=== PATIENT | female | born 1960 | race Caucasian/White ===

== ENCOUNTER 2019-07-31 12:42 | Inpatient (IN) | payer OTHER ==
[~2019-07-31] VITALS: Ht 172.7 cm; Wt 59.1 kg
[~2019-07-31 12:42] MED LIST: ASPI81TA85 PO; BACL10TA2 PO; BACT400T PO; CALC1TAB42 PO; DRAM50TA7 PO; FLON1SPR; KEFL500C17 PO; LYSI1000 PO; OXYB10TA2 PO; TIZA4CAP PO; TYLE325T5 PO
[2019-07-31] MEDS ORDERED: NS 1,000 ML IV SCH ×2 (13:08→18:30)
[2019-07-31] MEDS ORDERED: VANCOMYCIN HCL 1,000 MG, VIAL MATE ADAPTER 1 EACH in D5W 250 ML IV ONE (13:15)
[2019-07-31] MEDS ORDERED: ALEN70TA74 PO (13:42)
[2019-07-31] MEDS ORDERED: VITMTA PO (13:42)
[2019-07-31] MEDS ORDERED: ELIQ2.5T PO (13:42)
[2019-07-31] MEDS ORDERED: BACL1TAB9 PO (13:42)
[2019-07-31] MEDS ORDERED: METO1TAB32 PO (13:42)
[2019-07-31] MEDS ORDERED: OXYB5TAB10 PO (13:42)
[2019-07-31] MEDS ORDERED: TIZA4TAB4 PO (13:43)
[2019-07-31 14:04] LABS: BASO % 0.1 % (0.0-1.0); HEMATOCRIT 33.6 % (36.0-47.0); HEMOGLOBIN 11.3 g/dl (12.0-15.5); LYMPH # 0.3 10^3/uL (1.5-5.0); LYMPH % 2.1 % (24.0-44.0); MEAN CORPUSCULAR HGB CONC 33.6 g/dl (32.0-36.5); MEAN CORPUSCULAR VOLUME 92.1 fl (80.0-96.0); MONO # 0.9 10^3/uL (0.0-0.8); MONO % 5.4 % (0.0-5.0); NEUTROPHILS % 91.7 % (36.0-66.0); PLATELET COUNT, AUTOMATED 355 10^3/uL (150-450); RED BLOOD COUNT 3.65 10^6/uL (4.00-5.40); WHITE BLOOD COUNT 16.4 10^3/uL (4.0-10.0)
[2019-07-31 14:15] LABS: INR 1.35; PROTHROMBIN TIME 16.4 SECONDS (11.8-14.0)
[2019-07-31] MEDS ORDERED: diphenhydrAMINE INJ 50MG/ML VIAL (J1200) IV STA (14:19)
[2019-07-31] MEDS ORDERED: methylPREDNISolone INJ 125 MG/2 ML VIAL (J2930) IV ONE (14:30)
[2019-07-31 14:32] LABS: ALBUMIN 2.3 GM/DL (3.2-5.2); BILIRUBIN,DIRECT 0.2 MG/DL (0.0-0.2); BILIRUBIN,TOTAL 0.5 MG/DL (0.2-1.0); TOTAL PROTEIN 6.1 GM/DL (6.4-8.2)
[2019-07-31] MEDS ORDERED: ISOVUE-370 76% 100ML VIAL (Q9967) As Ordered ONE (15:36)
[2019-07-31] MEDS ORDERED: POTASSIUM CHLORIDE 10 MEQ SR TABLET PO ONE (18:15)
[2019-07-31 18:20] VITALS: BP 119/76
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
[2019-07-31] MEDS: BACLOFEN 10 MG TAB PO SCH ×2 (18:46→20:16)
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
[2019-07-31 20:00] VITALS: BP 114/72
[2019-07-31] MEDS: MULTIVITAMINS/MINERALS THERAP 1 TAB PO SCH (20:16)
[2019-07-31] MEDS: tiZANidine 4 MG TAB PO SCH (20:16)
[2019-07-31] MEDS: APIXABAN 2.5 MG TAB (ELIQUIS) PO SCH (20:16)
[2019-07-31] MEDS: oxyBUTYnin 5 MG TAB PO SCH (20:16)
[2019-07-31] MEDS: CALCIUM/VITAMIN D 500 MG TAB PO SCH (20:16)
[2019-07-31] MEDS: PIPERACILLIN/TAZOBACTAM SOD 3.375 GM in D5W MINI-BAG PLUS 50 ML IV SCH (20:17)
--- NOTE | 2019-07-31 20:59 | ECGEPIP ---
[facility] - ED Test Date: 2019-07-31 Pat Name: DORITA GARDNER Department: Room: - Gender: Female Tape Sewer: AIDAN : 1960 Requested By: Glo Willams Order Number: [id number] Reading MD: Glo Willams Measurements Intervals [place]ola Rate: 98 P: 45 AL: 100 QRS: 41 QRSD: 119 T: -71 QT: 369 QTc: 472 Interpretive Statements SINUS RHYTHM WITH SHORT AL INTERVAL MODERATE INTRAVENTRICULAR CONDUCTION DELAY MODERATE T-WAVE ABNORMALITY, CONSIDER ISCHEMIA NO PRIOR Electronically Signed on 07-31-2019 20:59:00 EDT by Glo Willams
[2019-07-31] MEDS ORDERED: CALCIUM CARBONATE 500 MG CHEW U/D PO ONE (21:00)
[2019-07-31] MEDS ORDERED: ENOXAPARIN 40 MG/0.4 ML SYRINGE (J1650) SC SCH (21:00)
[2019-08-01] VITALS (9 sets, daily range): BP systolic 98–132; BP diastolic 52–74
[2019-08-01] MEDS: PIPERACILLIN/TAZOBACTAM SOD 3.375 GM in D5W MINI-BAG PLUS 50 ML IV SCH ×4 (02:04→20:35)
[2019-08-01] MEDS: ALENDRONATE 35MG TABLET PO SCH (06:01)
[2019-08-01 06:09] LABS: BASO % 0.1 % (0.0-1.0); HEMOGLOBIN 10.5 g/dl (12.0-15.5); LYMPH # 0.5 10^3/uL (1.5-5.0); LYMPH % 3.2 % (24.0-44.0); MEAN CORPUSCULAR HEMOGLOBIN 30.6 pg (27.0-33.0); MEAN CORPUSCULAR HGB CONC 32.8 g/dl (32.0-36.5); MEAN CORPUSCULAR VOLUME 93.3 fl (80.0-96.0); MONO # 0.6 10^3/uL (0.0-0.8); MONO % 3.6 % (0.0-5.0); NEUTROPHILS % 92.4 % (36.0-66.0); PLATELET COUNT, AUTOMATED 407 10^3/uL (150-450); RED BLOOD COUNT 3.43 10^6/uL (4.00-5.40); WHITE BLOOD COUNT 16.2 10^3/uL (4.0-10.0)
[2019-08-01 06:46] LABS: BLOOD UREA NITROGEN 21 MG/DL (7-18); CALCIUM LEVEL 8.6 MG/DL (8.5-10.1); CARBON DIOXIDE LEVEL 30 MEQ/L (21-32); CHLORIDE LEVEL 110 MEQ/L (98-107); CREATININE FOR GFR 0.59 MG/DL (0.55-1.30); GLOMERULAR FILTRATION RATE > 60.0 (>51); GLUCOSE, FASTING 133 MG/DL (70-100); POTASSIUM SERUM 4.2 MEQ/L (3.5-5.1); SODIUM LEVEL 144 MEQ/L (136-145)
[2019-08-01 06:58] LABS: ERYTHROCYTE SEDIMENTATION RATE 66 mm/hr (0-30)
--- NOTE | 2019-08-01 07:53 | REP ---
CT ABDOMEN AND PELVIS WITH IV CONTRAST: TECHNIQUE: Axial contrast enhanced images from the lung bases to the pubic symphysis using 100 mL Isovue 370 intravenous contrast material with multiplanar reformations. Visualized lung bases demonstrate no infiltrate. The liver appears unremarkable as does the spleen, adrenals, and pancreas. There is mild right hydronephrosis. There is evidence of cystectomy. There is a left ureterostomy which exits the right lower quadrant via an ileoconduit. 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 There is no bowel obstruction. There is no free air or free fluid. No bowel wall thickening is seen. There is no evidence of abdominal aortic aneurysm with mild atherosclerotic calcification. There is no adenopathy. In the pelvis note is made of a large decubitus ulcer overlying the right ischial tuberosity. There is extensive air in the adjacent soft tissues with cellulitis and phlegmonous change. No discrete abscess is seen. Soft tissue calcifications are seen surrounding the right hip and proximal right femur. These are seen to a lesser extent on the left. There is no left hydronephrosis. There is focal atrophy of the upper pole of the left kidney. IMPRESSION: Large right sacral decubitus ulcer overlying the right ischial tuberosity. There is extensive inflammation and air in the soft tissues with phlegmonous change. However, I do not see a discrete abscess in that region. In the abdomen and pelvis there is evidence of cystectomy with left ureterostomy and ileoconduit which exits the right lower quadrant via an ostomy. There is a parastomal hernia. There is no bowel obstruction. There is no free air or free fluid in the abdomen or pelvis. There is mild right hydronephrosis. There is no left hydronephrosis. Electronically Signed by Earle Judd MD 08/02/2019 04:03 P
[2019-08-01] MEDS: BACLOFEN 10 MG TAB PO SCH ×3 (09:00→18:17)
[2019-08-01] MEDS: oxyBUTYnin 5 MG TAB PO SCH ×2 (09:00→20:34)
[2019-08-01] MEDS ORDERED: VITAMIN D 1,000 INTERNATIONAL UNITS TABLET PO SCH (09:00)
[2019-08-01] MEDS ORDERED: ENTER DRUG NAME HERE (PATIENT'S OWN MED) PO SCH (09:00)
[2019-08-01] MEDS: CALCIUM/VITAMIN D 500 MG TAB PO SCH ×3 (09:00→20:34)
[2019-08-01] MEDS: APIXABAN 2.5 MG TAB (ELIQUIS) PO SCH ×3 (09:00→20:34)
[2019-08-01] MEDS: tiZANidine 4 MG TAB PO SCH ×3 (09:01→23:08)
[2019-08-01] MEDS: METOPROLOL SUCC *XL* 25MG TAB (TopROL *XL*) PO SCH (09:03)
[2019-08-01] MEDS ORDERED: BACITRACIN PWD 50,000 UNITS VIAL As Ordered ONE (10:48)
[2019-08-01] MEDS ORDERED: GENTAMICIN SULF INJ 80MG/2ML VIAL (J1580) As Ordered ONE (10:48)
[2019-08-01] MEDS ORDERED: ONDANSETRON 4MG/2ML VIAL (J2405) As Ordered ONE (11:12)
[2019-08-01] MEDS ORDERED: LIDOCAINE 2% INJ 100 MG/5 ML SDV (FOR ANES.) As Ordered ONE (11:12)
[2019-08-01] MEDS ORDERED: dexameTHASONE 4 MG/ML 1ML VIAL (J1100) As Ordered ONE (11:12)
[2019-08-01] MEDS ORDERED: fentaNYL 100 MCG/2 ML INJECTION (J3010) As Ordered ONE (11:13)
[2019-08-01] MEDS ORDERED: PROPOFOL 200 MG/20 ML VIAL As Ordered ONE (11:15)
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
[2019-08-01] MEDS ORDERED: NS 1,000 ML IV SCH (12:15)
[2019-08-01] MEDS ORDERED: ZOSYN 3.375 GM VIAL (J2543) As Ordered ONE (13:24)
[2019-08-01] MEDS ORDERED: ePHEDrine SULFATE 25 MG/5 ML(5MG/ML) SYRINGE As Ordered ONE (14:00)
[2019-08-01] MEDS ORDERED: PHENYLephrine HCL 500 MCG/5 ML (100MCG/ML) SYRINGE (J2370) As Ordered ONE (14:03)
--- NOTE | 2019-08-01 15:33 | POST-OPPD ---
Postoperative Procedure Note Date Of Procedure: Aug 01, 2019 PREOPERATIVE DIAGNOSIS: Right ischial wound stage 4 POSTOPERATIVE DIAGNOSIS: same FINDINGS: Right ischial wound [id number] 6cm undermining at 12 o'clock PROCEDURE: Irrigation, debridement of stage 4 ischial wound, bone biopsy. SURGEON: Dr Meier ANESTHESIA: general SPECIMENS: Right ischial debridment tissue. Right ischial bone biopsy. Cultures aerobic and anaerobic. ESTIMATED BLOOD LOSS: 10cc REPLACED: none DRAINS: none COMPLICATIONS: none POSTOPERATIVE CONDITION: stable PEGGY MEIER DO Aug 01, 2019 15:33
--- NOTE | 2019-08-01 18:52 | RO ---
DATE OF PROCEDURE: 08/01/2019 PREOPERATIVE DIAGNOSIS: Right ischial wound stage IV. POSTOPERATIVE DIAGNOSIS: Right ischial wound stage IV. PROCEDURE: Debridement of stage IV ischial wound and a bone biopsy. SURGEON: Dr. Garrison. ANESTHESIA: General. SPECIMEN SENT: Right ischial debridement tissue and right ischial bone biopsy for cultures anaerobic and aerobic of the tissue were taken. BLOOD LOSS: 20 mL. FLUID REPLACEMENT: None. DRAINS: None. COMPLICATIONS: None. PROCEDURE: This 58-year-old female who came in from the emergency room yesterday and was also seen in the emergency room by us for infection of her right ischial wound. The patient is scheduled for washout today with irrigation and debridement and possible bone biopsy. The risks, benefits and alternatives were discussed with the patient at length and her questions were answered and she is ready to proceed. Informed consent was confirmed and she was brought to the operating room and placed in a supine position. Preoperative antibiotics were given which was Zosyn and Vancomycin that was already ordered for her from last night. Sequential stockings were placed on the lower calf. General anesthesia was induced. She was positioned in the left lateral position right side up and she was prepped and draped in the usual sterile fashion. The description of the wound as a stage IV right ischial wound. It is 3 x 4 cm in measurements and 5 cm deep, 6 cm undermining at 12 o'clock. We started our procedure by doing a sharp debridement of the necrotic tissue. There was no odor and there is no purulence in the wound. There is a significant amount of ischemia that was identified. The necrotic tissue was debrided. It was sent for culture and also the for tissue specimen. Good bleeding was produced after the sharp incision was done. The sacrum and junction to ischia were identified and the small biopsy was done using rongeur clamp. It was sent as a separate specimen. There is good viability of the bone and the periosteum was completely intact. The wound was irrigated with 3 liters of Bacitracin and Gentamicin solution with the power window caser. The foam dressing was then placed along the band and along the bone. The wound vac dressing was applied at continuous 125 mm of pressure. We created the outside extension to divert the suction from being on the sacrum. Patient is placed on an air mattress bed and floated and then was extubated and transferred to the recovery room in stable condition, completely comfortable and awake. MTDD
[2019-08-01] MEDS: MULTIVITAMINS/MINERALS THERAP 1 TAB PO SCH (20:34)
[2019-08-02] MEDS: PIPERACILLIN/TAZOBACTAM SOD 3.375 GM in D5W MINI-BAG PLUS 50 ML IV SCH ×4 (01:15→20:16)
[2019-08-02] MEDS: BACLOFEN 10 MG TAB PO SCH ×4 (01:15→18:54)
[2019-08-02 02:00] VITALS: BP 106/55
[2019-08-02 06:00] VITALS: BP 146/81
[2019-08-02 06:16] LABS: BASO % 0.2 % (0.0-1.0); EOS % 0.1 % (0.0-3.0); HEMATOCRIT 36.6 % (36.0-47.0); LYMPH # 1.5 10^3/uL (1.5-5.0); LYMPH % 10.9 % (24.0-44.0); MEAN CORPUSCULAR HEMOGLOBIN 31.3 pg (27.0-33.0); MEAN CORPUSCULAR HGB CONC 32.8 g/dl (32.0-36.5); MEAN CORPUSCULAR VOLUME 95.6 fl (80.0-96.0); MONO # 0.7 10^3/uL (0.0-0.8); NEUTROPHILS # 11.7 10^3/uL (1.5-8.5); PLATELET COUNT, AUTOMATED 509 10^3/uL (150-450); RED BLOOD COUNT 3.83 10^6/uL (4.00-5.40); WHITE BLOOD COUNT 14.1 10^3/uL (4.0-10.0)
[2019-08-02] MEDS: tiZANidine 4 MG TAB PO SCH ×3 (06:34→22:59)
[2019-08-02 06:38] LABS: BLOOD UREA NITROGEN 14 MG/DL (7-18); CALCIUM LEVEL 8.9 MG/DL (8.5-10.1); CARBON DIOXIDE LEVEL 29 MEQ/L (21-32); CHLORIDE LEVEL 106 MEQ/L (98-107); CREATININE FOR GFR 0.55 MG/DL (0.55-1.30); GLOMERULAR FILTRATION RATE > 60.0 (>51); GLUCOSE, FASTING 95 MG/DL (70-100); POTASSIUM SERUM 3.7 MEQ/L (3.5-5.1); SODIUM LEVEL 141 MEQ/L (136-145)
[2019-08-02 08:05] VITALS: BP 138/68
[2019-08-02] MEDS ORDERED: FLUBLOK(EGG FREE)(QUAD)INFLUENZA VACC 0.5ML SYRINGE (90682)18YRS&OLDER IM ONE (09:00)
[2019-08-02] MEDS: METOPROLOL SUCC *XL* 25MG TAB (TopROL *XL*) PO SCH (09:39)
[2019-08-02] MEDS: oxyBUTYnin 5 MG TAB PO SCH ×2 (09:39→20:17)
[2019-08-02] MEDS: APIXABAN 2.5 MG TAB (ELIQUIS) PO SCH ×2 (09:39→20:17)
[2019-08-02] MEDS: CALCIUM/VITAMIN D 500 MG TAB PO SCH ×3 (09:39→20:16)
[2019-08-02 10:00] VITALS: BP 130/70
--- NOTE | 2019-08-02 11:11 | IPNPDOC ---
Subjective General Date/Time Seen The patient was seen on 08/02/19 at 8:35. Subject Chief Complaint/History The patient is a 58-year-old female admitted with a reason for visit of Wound Of Sacral Region. Patient s/p I&D right ischial wound POD 1. Doing well. Wound vac is working well. No other complains. Current Medications Current Medications Current Medications Medications (Trade) Dose Ordered Sig/Kelli Route PRN Reason Start Time Stop Time Status Last Admin Dose Admin Alendronate Sodium (Fosamax) 70 mg Tu@0600 PO 08/01/19 06:00 08/01/19 06:01 Apixaban (Eliquis) 2.5 mg BID PO 07/31/19 21:00 08/02/19 09:39 Baclofen (Lioresal) 40 mg 0100,0700,1300,1900 PO 08/01/19 13:00 08/02/19 06:34 Baclofen (Lioresal) 40 mg QID PO 07/31/19 17:00 08/01/19 13:41 DC 08/01/19 09:00 Calcium/Vitamin D (Oscal D) 500 mg TID PO 07/31/19 21:00 08/02/19 09:39 Diphenhydramine HCl (Benadryl) 50 mg STAT STAT IV 07/31/19 14:19 07/31/19 14:20 DC 07/31/19 15:14 Enoxaparin Sodium (Lovenox) 40 mg DAILY@2100 SC 07/31/19 21:00 07/31/19 17:09 DC Home Med (Med Rec Complete!) ASDIRECTED XX 07/31/19 13:45 07/31/19 13:59 DC Metoprolol Succinate (TopROL XL) 25 mg DAILY PO 08/01/19 09:00 08/02/19 09:39 Miscellaneous (Unresolved Patient Own Med Order) SEE LABEL COMMENTS DAILY XX 07/31/19 09:00 07/31/19 18:25 DC Multivitamins (Theragram-M) 1 tab QHS PO 07/31/19 21:00 08/01/19 20:34 Oxybutynin Chloride (Ditropan) 10 mg BID PO 07/31/19 21:00 08/02/19 09:39 Patient Own Medication (Patient'S Own Med) Lysine 1000mg daily DAILY PO 08/01/19 09:00 07/31/19 18:24 DC Piperacillin Sod/ Tazobactam Sod 3.375 gm/Dextrose 50 ml @ 50 mls/hr Q6H IV 07/31/19 20:00 08/02/19 09:38 Sodium Chloride 1,000 ml @ 70 mls/hr [id number] IV 08/01/19 12:15 08/01/19 16:29 DC 08/01/19 12:39 Sodium Chloride 1,000 ml @ 100 mls/hr Q10H IV 07/31/19 18:30 08/01/19 04:29 DC Sodium Chloride 1,000 ml @ 150 mls/hr Q6H40M IV 07/31/19 13:08 07/31/19 18:20 DC 07/31/19 14:10 Tizanidine HCl (Zanaflex) 8 mg TID PO 07/31/19 21:00 08/01/19 13:41 DC 08/01/19 09:01 Tizanidine HCl (Zanaflex) 8 mg TID@0700,1500,2300 PO 08/01/19 15:00 08/02/19 06:34 Vitamin D (Vitamin D) 2,000 units DAILY PO 08/01/19 09:00 07/31/19 17:07 DC Allergies Coded Allergies: ciprofloxacin (Verified Allergy, Severe, mouth sores, 07/31/19) Contrast Media (Unverified Allergy, Intermediate, IVP DYE - RASH, 04/27/16) oxycodone (Verified Allergy, Intermediate, 07/31/19) zolpidem (Verified Adverse Reaction, Intermediate, anxious, 07/31/19) tramadol (Verified Adverse Reaction, Unknown, dizzy, 07/31/19) Objective Physical Examination Examination GENERAL APPEARANCE:Patient seen, laying in bed, awake, alert, and oriented. Comfortable, in no acute distress. SKIN: Warm and moist. Right ischial wound with wound vac dressing on. LUNGS: Clear to auscultation bilaterally. No wheezing appreciated. HEART: No chest wall abnormalities. Regular rate and rhythm with no murmurs appreciated. EXTREMITIES: Extremities have no deformities. No edema identified. Flaccid p aralysis LE. Vital Signs Vital Signs Date Time Temp Pulse Resp B/P (MAP) Pulse Ox O2 Delivery O2 Flow Rate FiO2 08/02/19 10:00 98.2 68 20 130/70 (90) 97 07/31/19 18:00 Room Air I&Os I&O- Last 24 Hours up to 6 AM 08/02/19 06:00 Intake Total 2765 ml Output Total 2485 ml Balance 280 ml Laboratory Data Labs 24H Laboratory Tests 2 08/02/19 05:58: Immature Granulocyte % (Auto) 0.8, White Blood Count 14.1H, Red Blood Count 3.83L, Hemoglobin 12.0, Hematocrit 36.6, Mean Corpuscular Volume 95.6, Mean Corpuscular Hemoglobin 31.3, Mean Corpuscular Hemoglobin Concent 32.8, Red Cell Distribution Width 12.4, Platelet Count 509H, Neutrophils (%) (Auto) 83.0H, Lymphocytes (%) (Auto) 10.9L, Monocytes (%) (Auto) 5.0, Eosinophils (%) (Auto) 0.1, Basophils (%) (Auto) 0.2, Neutrophils # (Auto) 11.7H, Lymphocytes # (Auto) 1.5, Monocytes # (Auto) 0.7, Eosinophils # (Auto) 0.0, Basophils # (Auto) 0.0, Nucleated Red Blood Cells % (auto) 0.0, Anion Gap 6L, Glomerular Filtration Rate > 60.0, Blood Urea Nitrogen 14, Creatinine 0.55, Sodium Level 141, Potassium Level 3.7, Chloride Level 106, Carbon Dioxide Level 29, Calcium Level 8.9 CBC/BMP Laboratory Tests 08/02/19 05:58 Red Blood Count 3.83 L, Mean Corpuscular Volume 95.6, Mean Corpuscular Hemoglobin 31.3, Mean Corpuscular Hemoglobin Concent 32.8, Red Cell Distribution Width 12.4, Neutrophils (%) (Auto) 83.0 H, Lymphocytes (%) (Auto) 10.9 L, Monocytes (%) (Auto) 5.0, Eosinophils (%) (Auto) 0.1, Basophils (%) (Auto) 0.2, Neutrophils # (Auto) 11.7 H, Lymphocytes # (Auto) 1.5, Monocytes # (Auto) 0.7, Eosinophils # (Auto) 0.0, Basophils # (Auto) 0.0, Calcium Level 8.9 Microbiology Microbiology 08/01/19 Wound Culture, Received Pending 08/01/19 Anaerobic Culture, Received Pending 07/31/19 Blood Culture - Preliminary, Resulted No growth after 24 hours . All specim... 07/31/19 Blood Culture - Preliminary, Resulted No growth after 24 hours . All specim... Impression Right ischial wound. S/p debridement. Cultures blood - negative Wound cultures pending Continue with wound vac, will change Saturday 08/04 Stay off right side. Airflow mattress in place, continue PT evaluation for in hospital PT and for home devices. Patient needs proper off loading for home bed and wheel chair and car. Nutritional consult. Recommend Zinc and Vit C. Will follow patient. Plan / VTE VTE Prophylaxis Ordered?: Yes PEGGY MEIER DO Aug 02, 2019 11:11
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
[2019-08-02 14:00] VITALS: BP 128/70
[2019-08-02] MEDS: MULTIVITAMINS/MINERALS THERAP 1 TAB PO SCH (20:16)
[2019-08-02 22:00] VITALS: BP 111/68
[2019-08-03] MEDS: PIPERACILLIN/TAZOBACTAM SOD 3.375 GM in D5W MINI-BAG PLUS 50 ML IV SCH ×4 (01:52→20:27)
[2019-08-03] MEDS: BACLOFEN 10 MG TAB PO SCH ×4 (01:53→18:56)
[2019-08-03 06:00] VITALS: BP 91/66
[2019-08-03 06:16] LABS: BASO % 0.3 % (0.0-1.0); EOS # 0.1 10^3/uL (0.0-0.5); EOS % 0.8 % (0.0-3.0); HEMATOCRIT 38.3 % (36.0-47.0); HEMOGLOBIN 12.2 g/dl (12.0-15.5); LYMPH # 1.5 10^3/uL (1.5-5.0); LYMPH % 15.6 % (24.0-44.0); MEAN CORPUSCULAR HEMOGLOBIN 30.2 pg (27.0-33.0); MEAN CORPUSCULAR HGB CONC 31.9 g/dl (32.0-36.5); MEAN CORPUSCULAR VOLUME 94.8 fl (80.0-96.0); MONO # 0.5 10^3/uL (0.0-0.8); MONO % 5.6 % (0.0-5.0); NEUTROPHILS # 7.3 10^3/uL (1.5-8.5); NEUTROPHILS % 76.9 % (36.0-66.0); PLATELET COUNT, AUTOMATED 522 10^3/uL (150-450); RED BLOOD COUNT 4.04 10^6/uL (4.00-5.40); WHITE BLOOD COUNT 9.4 10^3/uL (4.0-10.0)
[2019-08-03] MEDS: tiZANidine 4 MG TAB PO SCH ×3 (06:41→23:26)
[2019-08-03 06:46] LABS: BLOOD UREA NITROGEN 14 MG/DL (7-18); CALCIUM LEVEL 9.4 MG/DL (8.5-10.1); CARBON DIOXIDE LEVEL 29 MEQ/L (21-32); CHLORIDE LEVEL 106 MEQ/L (98-107); GLOMERULAR FILTRATION RATE > 60.0 (>51); GLUCOSE, FASTING 97 MG/DL (70-100); POTASSIUM SERUM 4.1 MEQ/L (3.5-5.1); SODIUM LEVEL 143 MEQ/L (136-145)
[2019-08-03] MEDS: METOPROLOL SUCC *XL* 25MG TAB (TopROL *XL*) PO SCH (09:00)
[2019-08-03] MEDS ORDERED: MOM 30ML SUSPENSION UDC PO PRN (09:00)
--- NOTE | 2019-08-03 09:24 | IPNPDOC ---
Subjective General Date/Time Seen The patient was seen on 08/03/19 at 08:20. Subject Chief Complaint/History The patient is a 58-year-old female admitted with a reason for visit of Wound Of Sacral Region. Patient s/p I&D right ischial stage [address] wound[address] No complains. Feeling better. Current Medications Current Medications Current Medications Medications (Trade) Dose Ordered Sig/Kelli Route PRN Reason Start Time Stop Time Status Last Admin Dose Admin Alendronate Sodium (Fosamax) 70 mg Tu@0600 PO 08/01/19 06:00 08/01/19 06:01 Apixaban (Eliquis) 2.5 mg BID PO 07/31/19 21:00 08/02/19 20:17 Baclofen (Lioresal) 40 mg 0100,0700,1300,1900 PO 08/01/19 13:00 08/03/19 06:41 Baclofen (Lioresal) 40 mg QID PO 07/31/19 17:00 08/01/19 13:41 DC 08/01/19 09:00 Calcium/Vitamin D (Oscal D) 500 mg TID PO 07/31/19 21:00 08/02/19 20:16 Diphenhydramine HCl (Benadryl) 50 mg STAT STAT IV 07/31/19 14:19 07/31/19 14:20 DC 07/31/19 15:14 Enoxaparin Sodium (Lovenox) 40 mg DAILY@2100 SC 07/31/19 21:00 07/31/19 17:09 DC Home Med (Med Rec Complete!) ASDIRECTED XX 07/31/19 13:45 07/31/19 13:59 DC Magnesium Hydroxide (Milk Of Magnesia) 30 ml DAILYPRN PRN PO CONSTIPATION 08/03/19 09:00 Metoprolol Succinate (TopROL XL) 25 mg DAILY PO 08/01/19 09:00 08/02/19 09:39 Miscellaneous (Unresolved Patient Own Med Order) SEE LABEL COMMENTS DAILY XX 07/31/19 09:00 07/31/19 18:25 DC Multivitamins (Theragram-M) 1 tab QHS PO 07/31/19 21:00 08/02/19 20:16 Oxybutynin Chloride (Ditropan) 10 mg BID PO 07/31/19 21:00 08/02/19 20:17 Patient Own Medication (Patient'S Own Med) Lysine 1000mg daily DAILY PO 08/01/19 09:00 07/31/19 18:24 DC Piperacillin Sod/ Tazobactam Sod 3.375 gm/Dextrose 50 ml @ 50 mls/hr Q6H IV 07/31/19 20:00 08/03/19 06:42 Senna/Docusate Sodium (Senokot S) 1 tab BID PO 08/03/19 09:00 Sodium Chloride 1,000 ml @ 70 mls/hr [id number] IV 08/01/19 12:15 08/01/19 16:29 DC 08/01/19 12:39 Sodium Chloride 1,000 ml @ 100 mls/hr Q10H IV 07/31/19 18:30 08/01/19 04:29 DC Sodium Chloride 1,000 ml @ 150 mls/hr Q6H40M IV 07/31/19 13:08 07/31/19 18:20 DC 07/31/19 14:10 Tizanidine HCl (Zanaflex) 8 mg TID PO 07/31/19 21:00 08/01/19 13:41 DC 08/01/19 09:01 Tizanidine HCl (Zanaflex) 8 mg TID@0700,1500,2300 PO 08/01/19 15:00 08/03/19 06:41 Vitamin D (Vitamin D) 2,000 units DAILY PO 08/01/19 09:00 07/31/19 17:07 DC Allergies Coded Allergies: ciprofloxacin (Verified Allergy, Severe, mouth sores, 07/31/19) Contrast Media (Unverified Allergy, Intermediate, IVP DYE - RASH, 04/27/16) oxycodone (Verified Allergy, Intermediate, 07/31/19) zolpidem (Verified Adverse Reaction, Intermediate, anxious, 07/31/19) tramadol (Verified Adverse Reaction, Unknown, dizzy, 07/31/19) Objective Physical Examination Examination GENERAL APPEARANCE:Patient seen, laying in bed, awake, alert, and oriented. Comfortable, in no acute distress. SKIN: Warm and moist. Right ischium wound with wound vac. surrounding skin with improved redness. Minimal serosanguinous drainage in vac. LUNGS: Clear to auscultation bilaterally. No wheezing appreciated. HEART: No chest wall abnormalities. Regular rate and rhythm with no murmurs appreciated. Vital Signs Vital Signs Date Time Temp Pulse Resp B/P (MAP) Pulse Ox O2 Delivery O2 Flow Rate FiO2 08/03/19 06:00 98.1 120 20 91/66 (74) 98 07/31/19 18:00 Room Air I&Os I&O- Last 24 Hours up to 6 AM 08/03/19 06:00 Intake Total 2400 ml Output Total 4000 ml Balance -1600 ml Laboratory Data Labs 24H Laboratory Tests 2 08/03/19 05:27: Immature Granulocyte % (Auto) 0.8, White Blood Count 9.4, Red Blood Count 4.04, Hemoglobin 12.2, Hematocrit 38.3, Mean Corpuscular Volume 94.8, Mean Corpuscular Hemoglobin 30.2, Mean Corpuscular Hemoglobin Concent 31.9L, Red Cell Distribution Width 12.3, Platelet Count 522H, Neutrophils (%) (Auto) 76.9H, Lymphocytes (%) (Auto) 15.6L, Monocytes (%) (Auto) 5.6H, Eosinophils (%) (Auto) 0.8, Basophils (%) (Auto) 0.3, Neutrophils # (Auto) 7.3, Lymphocytes # (Auto) 1.5, Monocytes # (Auto) 0.5, Eosinophils # (Auto) 0.1, Basophils # (Auto) 0.0, Nucleated Red Blood Cells % (auto) 0.0, Anion Gap 8, Glomerular Filtration Rate > 60.0, Blood Urea Nitrogen 14, Creatinine 0.60, Sodium Level 143, Potassium Level 4.1, Chloride Level 106, Carbon Dioxide Level 29, Calcium Level 9.4 CBC/BMP Laboratory Tests 08/03/19 05:27 Red Blood Count 4.04, Mean Corpuscular Volume 94.8, Mean Corpuscular Hemoglobin 30.2, Mean Corpuscular Hemoglobin Concent 31.9 L, Red Cell Distribution Width 12.3, Neutrophils (%) (Auto) 76.9 H, Lymphocytes (%) (Auto) 15.6 L, Monocytes (%) (Auto) 5.6 H, Eosinophils (%) (Auto) 0.8, Basophils (%) (Auto) 0.3, Neutrophils # (Auto) 7.3, Lymphocytes # (Auto) 1.5, Monocytes # (Auto) 0.5, Eosinophils # (Auto) 0.1, Basophils # (Auto) 0.0, Calcium Level 9.4 Microbiology Microbiology 08/01/19 Wound Culture, Received Pending 08/01/19 Anaerobic Culture, Received Pending 07/31/19 Blood Culture - Preliminary, Resulted No Growth after 48 hours. All Specime... 07/31/19 Blood Culture - Preliminary, Resulted No Growth after 48 hours. All Specime... Impression Right ischium stage 4 wound. WBC came down. Plan to change wound vac 08/04/19 Start with OT/PT Do not sit in chair for more than an hour at the time. Keep airflow mattress Off load right side. Discussed with patient discharge planning rehab vs home with services. Will readdress it as progress continues. Plan / VTE VTE Prophylaxis Ordered?: Yes PEGGY MEIER DO Aug 03, 2019 09:24
[2019-08-03] MEDS: CALCIUM/VITAMIN D 500 MG TAB PO SCH ×3 (09:51→20:27)
[2019-08-03] MEDS: SENOKOT S TAB PO SCH ×3 (09:52→20:30)
[2019-08-03] MEDS: APIXABAN 2.5 MG TAB (ELIQUIS) PO SCH ×2 (09:52→20:27)
[2019-08-03] MEDS: oxyBUTYnin 5 MG TAB PO SCH ×2 (09:54→20:27)
[2019-08-03] MEDS: ANALGESIC BALM CRM 120 GM TOP SCH ×2 (13:49→20:29)
[2019-08-03] MEDS ORDERED: LIDOCAINE 1% MDV 20ML VIAL As Ordered ONE (14:21)
[2019-08-03] MEDS: ASCORBIC ACID 500 MG TAB PO SCH ×2 (15:29→20:27)
--- NOTE | 2019-08-03 17:41 | REP ---
Midline catheter insertion with Site Antonio The procedure was performed under the direct supervision of Dr. Judd. The risks and benefits of the procedure were explained to the patient and informed consent was obtained. The right brachial vein was localized using ultrasound guidance. The skin was prepped and draped in a sterile fashion. 1% lidocaine was used as a local anesthetic. Using ultrasound guidance the brachial vein was cannulated and a 0.018 guidewire was inserted. The needle was removed and the 4.5 Singaporean dilator and peel-away sheath was inserted over the guide wire. A 4.5 [place]an single-lumen catheter was left at a length of 16.5 cm. The dilator was removed and the catheter was inserted over the guide wire. The catheter was affixed to the skin and a sterile dressing was applied. The catheter was flushed with heparinized saline as per Hospital protocol. The patient tolerated the procedure well and there were no immediate complications. Electronically Signed by YAMINI Turner 08/03/2019 04:08 P Electronically Signed by Earle Judd MD 08/03/2019 05:31 P
[2019-08-03] MEDS: SODIUM CHLORIDE 0.9% INJ 10 ML SYR IV SCH (18:55)
[2019-08-03] MEDS: ZINC SULFATE 220 MG CAP PO SCH (18:55)
[2019-08-03 20:00] VITALS: BP 125/59
[2019-08-03] MEDS: MULTIVITAMINS/MINERALS THERAP 1 TAB PO SCH (20:27)
[2019-08-04] MEDS: BACLOFEN 10 MG TAB PO SCH ×4 (01:24→17:56)
[2019-08-04] MEDS: PIPERACILLIN/TAZOBACTAM SOD 3.375 GM in D5W MINI-BAG PLUS 50 ML IV SCH ×4 (01:24→20:09)
[2019-08-04 06:00] VITALS: BP 147/87
[2019-08-04] MEDS: tiZANidine 4 MG TAB PO SCH ×3 (06:00→23:12)
[2019-08-04] MEDS: SODIUM CHLORIDE 0.9% INJ 10 ML SYR IV SCH ×2 (06:02→17:56)
[2019-08-04 06:42] LABS: BASO % 0.3 % (0.0-1.0); EOS # 0.1 10^3/uL (0.0-0.5); EOS % 1.1 % (0.0-3.0); HEMATOCRIT 39.3 % (36.0-47.0); HEMOGLOBIN 12.5 g/dl (12.0-15.5); LYMPH % 22.3 % (24.0-44.0); MEAN CORPUSCULAR HEMOGLOBIN 30.1 pg (27.0-33.0); MEAN CORPUSCULAR HGB CONC 31.8 g/dl (32.0-36.5); MEAN CORPUSCULAR VOLUME 94.7 fl (80.0-96.0); MONO # 0.5 10^3/uL (0.0-0.8); MONO % 5.9 % (0.0-5.0); NEUTROPHILS # 6.3 10^3/uL (1.5-8.5); NEUTROPHILS % 68.3 % (36.0-66.0); PLATELET COUNT, AUTOMATED 633 10^3/uL (150-450); RED BLOOD COUNT 4.15 10^6/uL (4.00-5.40); WHITE BLOOD COUNT 9.2 10^3/uL (4.0-10.0)
[2019-08-04 06:59] LABS: BLOOD UREA NITROGEN 14 MG/DL (7-18); CALCIUM LEVEL 9.5 MG/DL (8.5-10.1); CARBON DIOXIDE LEVEL 32 MEQ/L (21-32); CHLORIDE LEVEL 104 MEQ/L (98-107); CREATININE FOR GFR 0.58 MG/DL (0.55-1.30); GLOMERULAR FILTRATION RATE > 60.0 (>51); GLUCOSE, FASTING 103 MG/DL (70-100); POTASSIUM SERUM 3.8 MEQ/L (3.5-5.1); SODIUM LEVEL 141 MEQ/L (136-145)
[2019-08-04] MEDS: ZINC SULFATE 220 MG CAP PO SCH (08:44)
[2019-08-04] MEDS: ASCORBIC ACID 500 MG TAB PO SCH ×2 (08:44→20:18)
[2019-08-04] MEDS: CALCIUM/VITAMIN D 500 MG TAB PO SCH ×3 (08:44→20:18)
[2019-08-04] MEDS: oxyBUTYnin 5 MG TAB PO SCH ×2 (08:44→20:18)
[2019-08-04] MEDS: APIXABAN 2.5 MG TAB (ELIQUIS) PO SCH ×2 (08:44→20:18)
[2019-08-04] MEDS: METOPROLOL SUCC *XL* 25MG TAB (TopROL *XL*) PO SCH (08:45)
[2019-08-04] MEDS: SENOKOT S TAB PO SCH ×2 (08:45→20:18)
[2019-08-04] MEDS: ANALGESIC BALM CRM 120 GM TOP SCH ×2 (08:47→20:20)
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
[2019-08-04 10:16] LABS: C REACTIVE PROTEIN QUANTITATIV 8.56 MG/DL (0.00-0.30)
[2019-08-04 13:08] LABS: ERYTHROCYTE SEDIMENTATION RATE 78 mm/hr (0-30)
[2019-08-04 14:00] VITALS: BP 148/83
--- NOTE | 2019-08-04 16:29 | IPNPDOC ---
Subjective General Date/Time Seen The patient was seen on 08/04/19 at 16:25. Subject Chief Complaint/History The patient is a 58-year-old female admitted with a reason for visit of Wound Of Sacral Region. Patient s/p I/D, wound vac placement. Pathology: acute osteomyelitis. Patient is feeling well today. Compliant with PT/OT. Current Medications Current Medications Current Medications Medications (Trade) Dose Ordered Sig/Kelli Route PRN Reason Start Time Stop Time Status Last Admin Dose Admin Alendronate Sodium (Fosamax) 70 mg Tu@0600 PO 08/01/19 06:00 08/01/19 06:01 Apixaban (Eliquis) 2.5 mg BID PO 07/31/19 21:00 08/04/19 08:44 Ascorbic Acid (Vitamin C) 500 mg BID PO 08/03/19 09:00 08/04/19 08:44 Baclofen (Lioresal) 40 mg 0100,0700,1300,1900 PO 08/01/19 13:00 08/04/19 13:04 Baclofen (Lioresal) 40 mg QID PO 07/31/19 17:00 08/01/19 13:41 DC 08/01/19 09:00 Calcium/Vitamin D (Oscal D) 500 mg TID PO 07/31/19 21:00 08/04/19 08:44 Diphenhydramine HCl (Benadryl) 50 mg STAT STAT IV 07/31/19 14:19 07/31/19 14:20 DC 07/31/19 15:14 Enoxaparin Sodium (Lovenox) 40 mg DAILY@2100 SC 07/31/19 21:00 07/31/19 17:09 DC Heparin Sodium (Heparin (Flush)) 100 units ASDIRECTED PRN IV SEE LABEL COMMENTS 08/03/19 17:00 08/03/19 19:19 DC Heparin Sodium (Heparin (Flush)) 100 units BID@0600,1800 IV 08/03/19 18:00 08/03/19 19:19 DC 08/03/19 18:55 Home Med (Med Rec Complete!) ASDIRECTED XX 07/31/19 13:45 07/31/19 13:59 DC Magnesium Hydroxide (Milk Of Magnesia) 30 ml DAILYPRN PRN PO CONSTIPATION 08/03/19 09:00 Menthol/Methyl Salicylate (Bengay Cream) apply to neck for pain BID TOP 08/03/19 09:00 08/04/19 08:47 Metoprolol Succinate (TopROL XL) 25 mg DAILY PO 08/01/19 09:00 08/04/19 08:45 Miscellaneous (Unresolved Patient Own Med Order) SEE LABEL COMMENTS DAILY XX 07/31/19 09:00 07/31/19 18:25 DC Multivitamins (Theragram-M) 1 tab QHS PO 07/31/19 21:00 08/03/19 20:27 Oxybutynin Chloride (Ditropan) 10 mg BID PO 07/31/19 21:00 08/04/19 08:44 Patient Own Medication (Patient'S Own Med) Lysine 1000mg daily DAILY PO 08/01/19 09:00 07/31/19 18:24 DC Piperacillin Sod/ Tazobactam Sod 3.375 gm/Dextrose 50 ml @ 50 mls/hr Q6H IV 07/31/19 20:00 08/04/19 15:18 Senna/Docusate Sodium (Senokot S) 1 tab BID PO 08/03/19 09:00 08/03/19 09:52 Sodium Chloride 1,000 ml @ 70 mls/hr [id number] IV 08/01/19 12:15 08/01/19 16:29 DC 08/01/19 12:39 Sodium Chloride 1,000 ml @ 100 mls/hr Q10H IV 07/31/19 18:30 08/01/19 04:29 DC Sodium Chloride 1,000 ml @ 150 mls/hr Q6H40M IV 07/31/19 13:08 07/31/19 18:20 DC 07/31/19 14:10 Sodium Chloride (Saline Lock Flush) 10 ml ASDIRECTED PRN IV SEE LABEL COMMENTS 08/03/19 17:00 Sodium Chloride (Saline Lock Flush) 10 ml BID@0600,1800 IV 08/03/19 18:00 08/04/19 06:02 Tizanidine HCl (Zanaflex) 8 mg TID PO 07/31/19 21:00 08/01/19 13:41 DC 08/01/19 09:01 Tizanidine HCl (Zanaflex) 8 mg TID@0700,1500,2300 PO 08/01/19 15:00 08/04/19 15:18 Vitamin D (Vitamin D) 2,000 units DAILY PO 08/01/19 09:00 07/31/19 17:07 DC Zinc Sulfate (Zinc Sulfate) 220 mg DAILY PO 08/03/19 09:00 08/04/19 08:44 Allergies Coded Allergies: ciprofloxacin (Verified Allergy, Severe, mouth sores, 07/31/19) heparin (Verified Allergy, Severe, rash, hives, loss of voice , 08/03/19) Pt reports she had a DVT blood clot in her leg in 1994 and was put on a heparin drip. Pt states once on the heparin drug she developed a full body rash/hives and loss of voice. then determined she had a reaction Contrast Media (Unverified Allergy, Intermediate, IVP DYE - RASH, 04/27/16) oxycodone (Verified Allergy, Intermediate, 07/31/19) zolpidem (Verified Adverse Reaction, Intermediate, anxious, 07/31/19) tramadol (Verified Adverse Reaction, Unknown, dizzy, 07/31/19) Objective Physical Examination Examination GENERAL APPEARANCE:Patient seen, laying in bed, awake, alert, and oriented. Comfortable, in no acute distress. SKIN: Warm and moist. Right ischial wound with improved skin perfusion, excoriation improved. Size [id number], indermining 6cm at 12. Tissue with better perfusion. No odor, no drainage, no purulence. LUNGS: Clear to auscultation bilaterally. No wheezing appreciated. HEART: No chest wall abnormalities. Regular rate and rhythm with no murmurs appreciated. ABDOMEN: Abdomen is soft. EXTREMITIES: paraplegia, flacid. Vital Signs Vital Signs Date Time Temp Pulse Resp B/P (MAP) Pulse Ox O2 Delivery O2 Flow Rate FiO2 08/04/19 14:00 98.7 114 17 148/83 (104) 100 07/31/19 18:00 Room Air I&Os I&O- Last 24 Hours up to 6 AM 08/04/19 05:59 Intake Total 1300 ml Output Total 3400 ml Balance -2100 ml Laboratory Data Labs 24H Laboratory Tests 2 08/04/19 06:14: Immature Granulocyte % (Auto) 2.1, White Blood Count 9.2, Red Blood Count 4.15, Hemoglobin 12.5, Hematocrit 39.3, Mean Corpuscular Volume 94.7, Mean Corpuscular Hemoglobin 30.1, Mean Corpuscular Hemoglobin Concent 31.8L, Red Cell Distribution Width 12.5, Platelet Count 633H, Neutrophils (%) (Auto) 68.3H, Lymphocytes (%) (Auto) 22.3L, Monocytes (%) (Auto) 5.9H, Eosinophils (%) (Auto) 1.1, Basophils (%) (Auto) 0.3, Neutrophils # (Auto) 6.3, Lymphocytes # (Auto) 2.0, Monocytes # (Auto) 0.5, Eosinophils # (Auto) 0.1, Basophils # (Auto) 0.0, Nucleated Red Blood Cells % (auto) 0.0, Erythrocyte Sedimentation Rate 78H, Anion Gap 5L, Glomerular Filtration Rate > 60.0, Blood Urea Nitrogen 14, Creatin ine 0.58, Sodium Level 141, Potassium Level 3.8, Chloride Level 104, Carbon Dioxide Level 32, Calcium Level 9.5, C-Reactive Protein, Quantitative 8.56H CBC/BMP Laboratory Tests 08/04/19 06:14 Red Blood Count 4.15, Mean Corpuscular Volume 94.7, Mean Corpuscular Hemoglobin 30.1, Mean Corpuscular Hemoglobin Concent 31.8 L, Red Cell Distribution Width 12.5, Neutrophils (%) (Auto) 68.3 H, Lymphocytes (%) (Auto) 22.3 L, Monocytes (%) (Auto) 5.9 H, Eosinophils (%) (Auto) 1.1, Basophils (%) (Auto) 0.3, Neutrophils # (Auto) 6.3, Lymphocytes # (Auto) 2.0, Monocytes # (Auto) 0.5, Eo sinophils # (Auto) 0.1, Basophils # (Auto) 0.0, Calcium Level 9.5 Microbiology Microbiology 08/01/19 Wound Culture - Preliminary, Resulted Escherichia Coli Staphylococcus Sp Coag Neg 08/01/19 Anaerobic Culture, Resulted Pending 07/31/19 Blood Culture - Preliminary, Resulted No Growth after 72 hours. All specime... 07/31/19 Blood Culture - Preliminary, Resulted No Growth after 72 hours. All specime... Impression Stage 4 right ischial wound. Acute osteomyelitis. Continue with IV antibiotics per ID Wound vac changed with endofoam applied Continue with OT/PT Nutrition improvement. Next dressing change wednesday. Offload wound May sit 1 hr at the time. All findings discussed with patient, family and primary team. Plan / VTE VTE Prophylaxis Ordered?: Yes PEGGY MEIER DO Aug 04, 2019 16:29
[2019-08-04] MEDS: MULTIVITAMINS/MINERALS THERAP 1 TAB PO SCH (20:18)
[2019-08-04 22:00] VITALS: BP 105/60
--- NOTE | 2019-08-04 23:11 | ECGEPIP ---
[facility] Test Date: 2019-08-03 Pat Name: DORITA GARDNER Department: Room: [place] [address] Gender: Female Larriman: BHARATHI : 1960 Requested By: EYAD Lombardi Order Number: [id number] Reading MD: Raj Wang Measurements Intervals [place] Rate: 100 P: 36 KS: 124 QRS: -12 QRSD: 92 T: -23 QT: 330 QTc: 426 Interpretive Statements SINUS TACHYCARDIA ABNORMAL RHYTHM ECG Non specific ST/T abnormality Poor R wave progression vs prior anteroseptal wall infarct Last tracing on the same day, no significant changes Electronically Signed on 08-04-2019 23:11:22 EDT by Raj Wang
[2019-08-05] MEDS: PIPERACILLIN/TAZOBACTAM SOD 3.375 GM in D5W MINI-BAG PLUS 50 ML IV SCH ×4 (01:40→20:43)
[2019-08-05] MEDS: BACLOFEN 10 MG TAB PO SCH ×4 (01:40→18:14)
[2019-08-05 06:00] VITALS: BP 138/70
[2019-08-05] MEDS: tiZANidine 4 MG TAB PO SCH ×3 (06:34→23:21)
[2019-08-05] MEDS: SODIUM CHLORIDE 0.9% INJ 10 ML SYR IV SCH ×2 (06:34→15:43)
[2019-08-05 06:48] LABS: BASO # 0.1 10^3/uL (0.0-0.2); BASO % 0.4 % (0.0-1.0); EOS # 0.1 10^3/uL (0.0-0.5); HEMATOCRIT 38.7 % (36.0-47.0); HEMOGLOBIN 12.4 g/dl (12.0-15.5); LYMPH # 1.9 10^3/uL (1.5-5.0); LYMPH % 14.5 % (24.0-44.0); MEAN CORPUSCULAR HEMOGLOBIN 30.7 pg (27.0-33.0); MEAN CORPUSCULAR VOLUME 95.8 fl (80.0-96.0); MONO # 0.8 10^3/uL (0.0-0.8); NEUTROPHILS # 9.9 10^3/uL (1.5-8.5); NEUTROPHILS % 76.3 % (36.0-66.0); PLATELET COUNT, AUTOMATED 684 10^3/uL (150-450); RED BLOOD COUNT 4.04 10^6/uL (4.00-5.40)
[2019-08-05 07:18] LABS: BLOOD UREA NITROGEN 19 MG/DL (7-18); CALCIUM LEVEL 9.4 MG/DL (8.5-10.1); CARBON DIOXIDE LEVEL 31 MEQ/L (21-32); CHLORIDE LEVEL 105 MEQ/L (98-107); CREATININE FOR GFR 0.53 MG/DL (0.55-1.30); GLOMERULAR FILTRATION RATE > 60.0 (>51); GLUCOSE, FASTING 108 MG/DL (70-100); POTASSIUM SERUM 3.9 MEQ/L (3.5-5.1); SODIUM LEVEL 142 MEQ/L (136-145)
[2019-08-05] MEDS: ASCORBIC ACID 500 MG TAB PO SCH ×2 (08:32→20:43)
[2019-08-05] MEDS: CALCIUM/VITAMIN D 500 MG TAB PO SCH ×3 (08:32→20:43)
[2019-08-05] MEDS: APIXABAN 2.5 MG TAB (ELIQUIS) PO SCH ×2 (08:32→20:44)
[2019-08-05] MEDS: SENOKOT S TAB PO SCH ×3 (08:32→21:00)
[2019-08-05] MEDS: oxyBUTYnin 5 MG TAB PO SCH ×2 (08:33→20:43)
[2019-08-05] MEDS: METOPROLOL SUCC *XL* 25MG TAB (TopROL *XL*) PO SCH (08:33)
[2019-08-05] MEDS: ANALGESIC BALM CRM 120 GM TOP SCH ×2 (08:33→20:43)
[2019-08-05] MEDS: ZINC SULFATE 220 MG CAP PO SCH (09:53)
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
[2019-08-05 14:00] VITALS: BP 139/111
[2019-08-05] MEDS: MULTIVITAMINS/MINERALS THERAP 1 TAB PO SCH (20:43)
[2019-08-05 22:00] VITALS: BP 132/68
[2019-08-06] MEDS: PIPERACILLIN/TAZOBACTAM SOD 3.375 GM in D5W MINI-BAG PLUS 50 ML IV SCH ×4 (01:23→20:17)
[2019-08-06] MEDS: BACLOFEN 10 MG TAB PO SCH ×4 (01:23→18:16)
[2019-08-06 06:00] VITALS: BP 132/81
[2019-08-06] MEDS: SODIUM CHLORIDE 0.9% INJ 10 ML SYR IV SCH ×2 (06:21→18:16)
[2019-08-06] MEDS: tiZANidine 4 MG TAB PO SCH ×3 (06:32→23:25)
[2019-08-06 08:06] LABS: BASO % 0.4 % (0.0-1.0); EOS # 0.2 10^3/uL (0.0-0.5); EOS % 1.6 % (0.0-3.0); HEMATOCRIT 33.5 % (36.0-47.0); HEMOGLOBIN 10.8 g/dl (12.0-15.5); LYMPH # 1.8 10^3/uL (1.5-5.0); LYMPH % 17.8 % (24.0-44.0); MEAN CORPUSCULAR HEMOGLOBIN 30.5 pg (27.0-33.0); MEAN CORPUSCULAR HGB CONC 32.2 g/dl (32.0-36.5); MEAN CORPUSCULAR VOLUME 94.6 fl (80.0-96.0); MONO # 0.6 10^3/uL (0.0-0.8); MONO % 6.2 % (0.0-5.0); NEUTROPHILS # 7.5 10^3/uL (1.5-8.5); NEUTROPHILS % 72.4 % (36.0-66.0); PLATELET COUNT, AUTOMATED 639 10^3/uL (150-450); RED BLOOD COUNT 3.54 10^6/uL (4.00-5.40); WHITE BLOOD COUNT 10.3 10^3/uL (4.0-10.0)
[2019-08-06 08:38] LABS: ALBUMIN 1.9 GM/DL (3.2-5.2); ALT/SGPT 24 U/L (12-78); BILIRUBIN,TOTAL 0.2 MG/DL (0.2-1.0); BLOOD UREA NITROGEN 24 MG/DL (7-18); CALCIUM LEVEL 8.8 MG/DL (8.5-10.1); CARBON DIOXIDE LEVEL 28 MEQ/L (21-32); CHLORIDE LEVEL 106 MEQ/L (98-107); CREATININE FOR GFR 0.51 MG/DL (0.55-1.30); GLOMERULAR FILTRATION RATE > 60.0 (>51); GLUCOSE, FASTING 108 MG/DL (70-100); SODIUM LEVEL 141 MEQ/L (136-145); TOTAL PROTEIN 6.3 GM/DL (6.4-8.2)
[2019-08-06] MEDS: CALCIUM/VITAMIN D 500 MG TAB PO SCH ×3 (08:48→20:17)
[2019-08-06] MEDS: ASCORBIC ACID 500 MG TAB PO SCH ×2 (08:48→20:17)
[2019-08-06] MEDS: ANALGESIC BALM CRM 120 GM TOP SCH ×2 (08:48→20:18)
[2019-08-06] MEDS: oxyBUTYnin 5 MG TAB PO SCH ×2 (08:49→20:17)
[2019-08-06] MEDS: APIXABAN 2.5 MG TAB (ELIQUIS) PO SCH ×2 (08:49→20:17)
[2019-08-06] MEDS: METOPROLOL SUCC *XL* 25MG TAB (TopROL *XL*) PO SCH (08:49)
[2019-08-06] MEDS: ZINC SULFATE 220 MG CAP PO SCH (08:49)
[2019-08-06] MEDS: SENOKOT S TAB PO SCH ×2 (08:50→20:17)
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
[2019-08-06 14:00] VITALS: BP 130/78
[2019-08-06] MEDS: MULTIVITAMINS/MINERALS THERAP 1 TAB PO SCH (20:17)
[2019-08-06 22:00] VITALS: BP 154/82
[2019-08-07] MEDS: BACLOFEN 10 MG TAB PO SCH ×4 (01:27→18:15)
[2019-08-07] MEDS: diphenhydrAMINE 25 MG CAP PO PRN (01:28)
[2019-08-07] MEDS: PIPERACILLIN/TAZOBACTAM SOD 3.375 GM in D5W MINI-BAG PLUS 50 ML IV SCH ×4 (01:28→21:46)
[2019-08-07] MEDS: SODIUM CHLORIDE 0.9% INJ 10 ML SYR IV PRN (03:03)
[2019-08-07 06:00] VITALS: BP 144/91
[2019-08-07 06:11] LABS: HEMATOCRIT 34.2 % (36.0-47.0); HEMOGLOBIN 11.1 g/dl (12.0-15.5); MEAN CORPUSCULAR HGB CONC 32.5 g/dl (32.0-36.5); MEAN CORPUSCULAR VOLUME 95.5 fl (80.0-96.0); PLATELET COUNT, AUTOMATED 666 10^3/uL (150-450); RED BLOOD COUNT 3.58 10^6/uL (4.00-5.40); WHITE BLOOD COUNT 11.7 10^3/uL (4.0-10.0)
[2019-08-07] MEDS: SODIUM CHLORIDE 0.9% INJ 10 ML SYR IV SCH ×2 (06:13→18:16)
[2019-08-07 06:34] LABS: BLOOD UREA NITROGEN 31 MG/DL (7-18); CALCIUM LEVEL 8.8 MG/DL (8.5-10.1); CARBON DIOXIDE LEVEL 29 MEQ/L (21-32); CHLORIDE LEVEL 105 MEQ/L (98-107); CREATININE FOR GFR 0.55 MG/DL (0.55-1.30); GLOMERULAR FILTRATION RATE > 60.0 (>51); GLUCOSE, FASTING 121 MG/DL (70-100); POTASSIUM SERUM 3.9 MEQ/L (3.5-5.1); SODIUM LEVEL 139 MEQ/L (136-145)
[2019-08-07] MEDS: tiZANidine 4 MG TAB PO SCH ×3 (06:36→23:04)
[2019-08-07] MEDS: CALCIUM/VITAMIN D 500 MG TAB PO SCH ×3 (08:35→21:48)
[2019-08-07] MEDS: ASCORBIC ACID 500 MG TAB PO SCH ×2 (08:35→21:48)
[2019-08-07] MEDS: APIXABAN 2.5 MG TAB (ELIQUIS) PO SCH ×2 (08:35→21:48)
[2019-08-07] MEDS: ZINC SULFATE 220 MG CAP PO SCH (08:35)
[2019-08-07] MEDS: SENOKOT S TAB PO SCH ×3 (08:35→21:46)
[2019-08-07] MEDS: oxyBUTYnin 5 MG TAB PO SCH ×2 (08:35→21:48)
[2019-08-07] MEDS: METOPROLOL SUCC *XL* 25MG TAB (TopROL *XL*) PO SCH (08:36)
[2019-08-07] MEDS: ANALGESIC BALM CRM 120 GM TOP SCH ×2 (08:38→21:00)
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
[2019-08-07 14:00] VITALS: BP 128/71
--- NOTE | 2019-08-07 16:57 | IPNPDOC ---
Subjective General Date/Time Seen The patient was seen on 08/07/19 at 16:48. Subject Chief Complaint/History The patient is a 58-year-old female admitted with a reason for visit of Wound Of Sacral Region. Patient s/p I&D right ischium, wound vac placement. Patient is compliant with dressings, PT/OT. NO new complains. Current Medications Current Medications Current Medications Medications (Trade) Dose Ordered Sig/Kelli Route PRN Reason Start Time Stop Time Status Last Admin Dose Admin Alendronate Sodium (Fosamax) 70 mg Tu@0600 PO 08/01/19 06:00 08/01/19 06:01 Apixaban (Eliquis) 2.5 mg BID PO 07/31/19 21:00 08/07/19 08:35 Ascorbic Acid (Vitamin C) 500 mg BID PO 08/03/19 09:00 08/07/19 08:35 Baclofen (Lioresal) 40 mg 0100,0700,1300,1900 PO 08/01/19 13:00 08/07/19 13:07 Baclofen (Lioresal) 40 mg QID PO 07/31/19 17:00 08/01/19 13:41 DC 08/01/19 09:00 Calcium/Vitamin D (Oscal D) 500 mg TID PO 07/31/19 21:00 08/07/19 16:07 Diphenhydramine HCl (Benadryl) 25 mg QHSP PRN PO INSOMNIA 08/06/19 11:45 08/07/19 01:28 Diphenhydramine HCl (Benadryl) 50 mg STAT STAT IV 07/31/19 14:19 07/31/19 14:20 DC 07/31/19 15:14 Enoxaparin Sodium (Lovenox) 40 mg DAILY@2100 SC 07/31/19 21:00 07/31/19 17:09 DC Heparin Sodium (Heparin (Flush)) 100 units ASDIRECTED PRN IV SEE LABEL COMMENTS 08/03/19 17:00 08/03/19 19:19 DC Heparin Sodium (Heparin (Flush)) 100 units BID@0600,1800 IV 08/03/19 18:00 08/03/19 19:19 DC 08/03/19 18:55 Home Med (Med Rec Complete!) ASDIRECTED XX 07/31/19 13:45 07/31/19 13:59 DC Magnesium Hydroxide (Milk Of Magnesia) 30 ml DAILYPRN PRN PO CONSTIPATION 08/03/19 09:00 08/06/19 08:49 Menthol/Methyl Salicylate (Bengay Cream) apply to neck for pain BID TOP 08/03/19 09:00 08/07/19 08:38 Metoprolol Succinate (TopROL XL) 25 mg DAILY PO 08/01/19 09:00 08/07/19 08:36 Miscellaneous (Unresolved Patient Own Med Order) SEE LABEL COMMENTS DAILY XX 07/31/19 09:00 07/31/19 18:25 DC Multivitamins (Theragram-M) 1 tab QHS PO 07/31/19 21:00 08/06/19 20:17 Oxybutynin Chloride (Ditropan) 10 mg BID PO 07/31/19 21:00 08/07/19 08:35 Patient Own Medication (Patient'S Own Med) Lysine 1000mg daily DAILY PO 08/01/19 09:00 07/31/19 18:24 DC Piperacillin Sod/ Tazobactam Sod 3.375 gm/Dextrose 50 ml @ 50 mls/hr Q6H IV 07/31/19 20:00 08/07/19 13:07 Senna/Docusate Sodium (Senokot S) 1 tab BID PO 08/03/19 09:00 08/07/19 08:35 Sodium Chloride 1,000 ml @ 70 mls/hr [id number] IV 08/01/19 12:15 08/01/19 16:29 DC 08/01/19 12:39 Sodium Chloride 1,000 ml @ 100 mls/hr Q10H IV 07/31/19 18:30 08/01/19 04:29 DC Sodium Chloride 1,000 ml @ 150 mls/hr Q6H40M IV 07/31/19 13:08 07/31/19 18:20 DC 07/31/19 14:10 Sodium Chloride (Saline Lock Flush) 10 ml ASDIRECTED PRN IV SEE LABEL COMMENTS 08/03/19 17:00 08/07/19 03:03 Sodium Chloride (Saline Lock Flush) 10 ml BID@0600,1800 IV 08/03/19 18:00 08/07/19 06:13 Tizanidine HCl (Zanaflex) 8 mg TID PO 07/31/19 21:00 08/01/19 13:41 DC 08/01/19 09:01 Tizanidine HCl (Zanaflex) 8 mg TID@0700,1500,2300 PO 08/01/19 15:00 08/07/19 16:08 Vitamin D (Vitamin D) 2,000 units DAILY PO 08/01/19 09:00 07/31/19 17:07 DC Zinc Sulfate (Zinc Sulfate) 220 mg DAILY PO 08/03/19 09:00 08/07/19 08:35 Allergies Coded Allergies: ciprofloxacin (Verified Allergy, Severe, mouth sores, 07/31/19) heparin (Verified Allergy, Severe, rash, hives, loss of voice , 08/03/19) Pt reports she had a DVT blood clot in her leg in 1994 and was put on a heparin drip. Pt states once on the heparin drug she developed a full body rash/hives and loss of voice. then determined she had a reaction Contrast Media (Unverified Allergy, Intermediate, IVP DYE - RASH, 04/27/16) oxycodone (Verified Allergy, Intermediate, 07/31/19) zolpidem (Verified Adverse Reaction, Intermediate, anxious, 07/31/19) tramadol (Verified Adverse Reaction, Unknown, dizzy, 07/31/19) Objective Physical Examination Examination GENERAL APPEARANCE:Patient seen, laying in bed, awake, alert, and oriented. Comfortable, in no acute distress. SKIN: Warm and moist. Right ischial wound: [id number]. Granulation 90%, 10 yellow slough. No odor, minimal drainage. LUNGS: Clear to auscultation bilaterally. No wheezing appreciated. HEART: No chest wall abnormalities. Regular rate and rhythm with no murmurs appreciated. ABDOMEN: Abdomen is soft, NT/ND. EXTREMITIES: Paraplegia. Vital Signs Vital Signs Date Time Temp Pulse Resp B/P (MAP) Pulse Ox O2 Delivery O2 Flow Rate FiO2 08/07/19 14:00 97.3 84 12 128/71 (90) 98 I&Os I&O- Last 24 Hours up to 6 AM 08/07/19 06:00 Intake Total 3300 ml Output Total 1525 ml Balance 1775 ml Laboratory Data Labs 24H Laboratory Tests 2 08/07/19 05:28: Nucleated Red Blood Cells % (auto) 0.0, Anion Gap 5L, Glomerular Filtration Rate > 60.0, Blood Urea Nitrogen 31H, Creatinine 0.55, Sodium Level 139, Potassium Level 3.9, Chloride Level 105, Carbon Dioxide Level 29, Calcium Level 8.8, C- Reactive Protein, Quantitative 4.10H CBC/BMP Laboratory Tests 08/07/19 05:28 Red Blood Count 3.58 L, Mean Corpuscular Volume 95.5, Mean Corpuscular Hemoglobin 31.0, Mean Corpuscular Hemoglobin Concent 32.5, Red Cell Distribution Width 12.6, Calcium Level 8.8 Microbiology Microbiology 08/05/19 Blood Culture - Preliminary, Resulted No Growth after 48 hours. All Specime... 08/05/19 Blood Culture - Preliminary, Resulted No Growth after 48 hours. All Specime... 08/01/19 Wound Culture - Final, Complete Escherichia Coli Enterococcus Faecalis Staphylococcus Sp Coag Neg 08/01/19 Anaerobic Culture - Final, Complete Veillonella Parvula Anaerobic Cocci Porphyromonas Asaccharolytica 07/31/19 Blood Culture - Final, Complete NO GROWTH AFTER 5 DAYS 07/31/19 Blood Culture - Preliminary, Resulted Impression Wound is progressing and improved. No visible ischemia. Improved granulation. Skin edges healing well. Continue with Wound vac and Endofoam PT/OT Antibiotics per ID Evaluation with inhouse rehab. Next dressing change on Wednesday. Plan / VTE VTE Prophylaxis Ordered?: Yes PEGGY MEIER DO Aug 07, 2019 16:57
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
[2019-08-07] MEDS: MULTIVITAMINS/MINERALS THERAP 1 TAB PO SCH (21:48)
[2019-08-07 22:00] VITALS: BP 126/69
[2019-08-08] MEDS: diphenhydrAMINE 25 MG CAP PO PRN (01:05)
[2019-08-08] MEDS: BACLOFEN 10 MG TAB PO SCH ×4 (01:05→18:13)
[2019-08-08] MEDS: PIPERACILLIN/TAZOBACTAM SOD 3.375 GM in D5W MINI-BAG PLUS 50 ML IV SCH ×4 (02:28→20:05)
[2019-08-08] MEDS ORDERED: OXYMETAZOLINE NASAL SPRAY (AFRIN) PRN (02:30)
[2019-08-08] MEDS: ALENDRONATE 35MG TABLET PO SCH (05:40)
[2019-08-08] MEDS: SODIUM CHLORIDE 0.9% INJ 10 ML SYR IV SCH ×2 (05:41→18:13)
[2019-08-08 06:00] VITALS: BP 129/71
[2019-08-08] MEDS: tiZANidine 4 MG TAB PO SCH ×3 (06:46→23:12)
[2019-08-08 08:25] VITALS: BP 112/64
[2019-08-08] MEDS: CALCIUM/VITAMIN D 500 MG TAB PO SCH ×3 (09:47→20:37)
[2019-08-08] MEDS: oxyBUTYnin 5 MG TAB PO SCH ×2 (09:47→20:37)
[2019-08-08] MEDS: ZINC SULFATE 220 MG CAP PO SCH (09:47)
[2019-08-08] MEDS: ASCORBIC ACID 500 MG TAB PO SCH ×2 (09:48→20:37)
[2019-08-08] MEDS: APIXABAN 2.5 MG TAB (ELIQUIS) PO SCH ×2 (09:48→20:37)
[2019-08-08] MEDS: SENOKOT S TAB PO SCH ×2 (09:48→20:37)
[2019-08-08] MEDS: METOPROLOL SUCC *XL* 25MG TAB (TopROL *XL*) PO SCH (09:48)
[2019-08-08] MEDS: ANALGESIC BALM CRM 120 GM TOP SCH ×2 (09:50→20:38)
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
[2019-08-08 14:00] VITALS: BP 108/72
[2019-08-08] MEDS: MULTIVITAMINS/MINERALS THERAP 1 TAB PO SCH (20:37)
[2019-08-08 22:00] VITALS: BP 138/62
[2019-08-09] MEDS: diphenhydrAMINE 25 MG CAP PO PRN (01:12)
[2019-08-09] MEDS: BACLOFEN 10 MG TAB PO SCH ×4 (01:13→18:56)
[2019-08-09] MEDS: PIPERACILLIN/TAZOBACTAM SOD 3.375 GM in D5W MINI-BAG PLUS 50 ML IV SCH ×4 (02:06→20:04)
[2019-08-09 05:38] LABS: BASO % 0.5 % (0.0-1.0); EOS # 0.1 10^3/uL (0.0-0.5); EOS % 1.6 % (0.0-3.0); HEMATOCRIT 33.1 % (36.0-47.0); HEMOGLOBIN 10.7 g/dl (12.0-15.5); LYMPH % 27.3 % (24.0-44.0); MEAN CORPUSCULAR HEMOGLOBIN 30.7 pg (27.0-33.0); MEAN CORPUSCULAR HGB CONC 32.3 g/dl (32.0-36.5); MEAN CORPUSCULAR VOLUME 95.1 fl (80.0-96.0); MONO # 0.8 10^3/uL (0.0-0.8); MONO % 10.3 % (0.0-5.0); NEUTROPHILS # 4.4 10^3/uL (1.5-8.5); NEUTROPHILS % 59.3 % (36.0-66.0); PLATELET COUNT, AUTOMATED 580 10^3/uL (150-450); RED BLOOD COUNT 3.48 10^6/uL (4.00-5.40); WHITE BLOOD COUNT 7.4 10^3/uL (4.0-10.0)
[2019-08-09 05:56] LABS: BLOOD UREA NITROGEN 24 MG/DL (7-18); C REACTIVE PROTEIN QUANTITATIV 2.36 MG/DL (0.00-0.30); CALCIUM LEVEL 8.8 MG/DL (8.5-10.1); CARBON DIOXIDE LEVEL 30 MEQ/L (21-32); CHLORIDE LEVEL 108 MEQ/L (98-107); CREATININE FOR GFR 0.49 MG/DL (0.55-1.30); GLOMERULAR FILTRATION RATE > 60.0 (>51); GLUCOSE, FASTING 88 MG/DL (70-100); POTASSIUM SERUM 3.7 MEQ/L (3.5-5.1); SODIUM LEVEL 143 MEQ/L (136-145)
[2019-08-09 06:00] VITALS: BP 125/74
[2019-08-09] MEDS: SODIUM CHLORIDE 0.9% INJ 10 ML SYR IV SCH ×2 (06:01→17:24)
[2019-08-09] MEDS: tiZANidine 4 MG TAB PO SCH ×3 (06:56→23:10)
--- NOTE | 2019-08-09 07:44 | IPN ---
DATE: 08/08/2019 Radha is doing well. She is having dinner that was brought in by her friend. She denies any nausea, vomiting, diarrhea. No fever or chills. The patient had some reflux when she was eating laying down yesterday and therefore has asked to be sitting up with every meal. Wound VAC was not changed today. It is changed every other day by Dr. Garrison. LABORATORIES: White count 11.7, hemoglobin 11.1, hematocrit 34.2, platelets 666, CRP 4.1. These were labs done yesterday. Wound culture final has E. Coli, Enterococcus Faecalis, staphylococcus coag negative, anaerobes and Porphyromonas. IMPRESSION: 1. Right ischial tuberosity osteomyelitis with polymicrobial cyn on IV Zosyn, doing much better. The patient has wound VAC change three times a week. 2. T3 paraplegia. Patient is being evaluated for acute rehab. Dr. Garrison has agreed that she could do three hours of PT, but to not continuously as she needs to be off the decubitus ulcer to allow healing. 3. Protein calorie malnutrition. The patient was encouraged to increase her protein intake and drink Ensure. 4. Sweating. The patient takes Ditropan 10 mg b.i.d. for increased perspiration which occurs with increasing pain and infection. The patient would like to have that discussed with physiatry whether they have other options to treat her increased perspiration that happens with pain or infection. PLAN: Continue IV Zosyn. The patient will need 6 weeks of antibiotic but they do not necessarily have to be IV. Depending on clinical improvement, she may need 2 weeks IV and 4 weeks orally. This will all be decided depending on progress of wound as well as inflammatory markers and CBC. Repeat CBC, CRP tomorrow. Continue IV Zosyn. Consider transfer to acute rehab. [facility]
[2019-08-09 08:05] VITALS: BP 101/57
[2019-08-09] MEDS: SENOKOT S TAB PO SCH ×2 (08:53→20:04)
[2019-08-09] MEDS: METOPROLOL SUCC *XL* 25MG TAB (TopROL *XL*) PO SCH (09:00)
[2019-08-09] MEDS ORDERED: LOPERAMIDE 2 MG CAP PO ONE (09:00)
[2019-08-09] MEDS: ZINC SULFATE 220 MG CAP PO SCH (09:49)
[2019-08-09] MEDS: oxyBUTYnin 5 MG TAB PO SCH (09:50)
[2019-08-09] MEDS: CALCIUM/VITAMIN D 500 MG TAB PO SCH ×3 (09:50→20:03)
[2019-08-09] MEDS: ASCORBIC ACID 500 MG TAB PO SCH ×2 (09:50→20:03)
[2019-08-09] MEDS: APIXABAN 2.5 MG TAB (ELIQUIS) PO SCH ×2 (09:50→20:03)
[2019-08-09] MEDS: LYSINE 1000 MG PO SCH (09:51)
[2019-08-09] MEDS: ANALGESIC BALM CRM 120 GM TOP SCH ×2 (09:52→20:04)
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
[2019-08-09 13:46] VITALS: BP 120/58
[2019-08-09] MEDS ORDERED: oxyBUTYnin *DITROPAN XL* 5 MG TABCR PO SCH (14:00)
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
--- NOTE | 2019-08-09 16:47 | IPNPDOC ---
Subjective General Date/Time Seen The patient was seen on 08/09/19 at 16:34. Subject Chief Complaint/History The patient is a 58-year-old female admitted with a reason for visit of Wound Of Sacral Region. Patient is ready for wound vac change today. Feeling better. She had a case a diarrhea this morning, now on Imodium, feeling much better. No other complains. Current Medications Current Medications Current Medications Medications (Trade) Dose Ordered Sig/Kelli Route PRN Reason Start Time Stop Time Status Last Admin Dose Admin Alendronate Sodium (Fosamax) 70 mg Tu@0600 PO 08/01/19 06:00 08/08/19 05:40 Apixaban (Eliquis) 2.5 mg BID PO 07/31/19 21:00 08/09/19 09:50 Ascorbic Acid (Vitamin C) 500 mg BID PO 08/03/19 09:00 08/09/19 09:50 Baclofen (Lioresal) 40 mg 0100,0700,1300,1900 PO 08/01/19 13:00 08/09/19 13:11 Baclofen (Lioresal) 40 mg QID PO 07/31/19 17:00 08/01/19 13:41 DC 08/01/19 09:00 Calcium/Vitamin D (Oscal D) 500 mg TID PO 07/31/19 21:00 08/09/19 14:58 Diphenhydramine HCl (Benadryl) 25 mg QHSP PRN PO INSOMNIA 08/06/19 11:45 08/09/19 01:12 Diphenhydramine HCl (Benadryl) 50 mg STAT STAT IV 07/31/19 14:19 07/31/19 14:20 DC 07/31/19 15:14 Enoxaparin Sodium (Lovenox) 40 mg DAILY@2100 SC 07/31/19 21:00 07/31/19 17:09 DC Heparin Sodium (Heparin (Flush)) 100 units ASDIRECTED PRN IV SEE LABEL COMMENTS 08/03/19 17:00 08/03/19 19:19 DC Heparin Sodium (Heparin (Flush)) 100 units BID@0600,1800 IV 08/03/19 18:00 08/03/19 19:19 DC 08/03/19 18:55 Home Med (Med Rec Complete!) ASDIRECTED XX 07/31/19 13:45 07/31/19 13:59 DC Loperamide HCl (Imodium) 2 mg ASDIRECTED PRN PO DIARRHEA 08/09/19 16:00 Magnesium Hydroxide (Milk Of Magnesia) 30 ml DAILYPRN PRN PO CONSTIPATION 08/03/19 09:00 08/06/19 08:49 Menthol/Methyl Salicylate (Bengay Cream) apply to neck for pain BID TOP 08/03/19 09:00 08/09/19 09:52 Metoprolol Succinate (TopROL XL) 25 mg DAILY PO 08/01/19 09:00 08/08/19 09:48 Miscellaneous (Unresolved Patient Own Med Order) SEE LABEL COMMENTS DAILY XX 07/31/19 09:00 07/31/19 18:25 DC Miscellaneous (Unresolved Patient Own Med Order) SEE LABEL COMMENTS DAILY XX 08/07/19 09:00 08/08/19 23:02 DC Multivitamins (Theragram-M) 1 tab QHS PO 07/31/19 21:00 08/08/19 20:37 Oxybutynin Chloride (Ditropan Xl) 25 mg DAILY PO 08/10/19 09:00 Oxybutynin Chloride (Ditropan Xl) 25 mg DAILY PO 08/09/19 14:00 Cancel Oxybutynin Chloride (Ditropan) 10 mg BID PO 07/31/19 21:00 08/09/19 13:02 DC 08/09/19 09:50 Oxymetazoline HCl (Afrin) 2 spray BID PRN NA CONGESTION 08/08/19 02:30 08/11/19 02:30 08/08/19 20:05 Patient Own Medication (Patient'S Own Med) 1 TAB DAILY PO 08/09/19 09:00 08/09/19 09:51 Patient Own Medication (Patient'S Own Med) Lysine 1000mg daily DAILY PO 08/01/19 09:00 07/31/19 18:24 DC Piperacillin Sod/ Tazobactam Sod 3.375 gm/Dextrose 50 ml @ 50 mls/hr Q6H IV 07/31/19 20:00 08/09/19 13:28 Senna/Docusate Sodium (Senokot S) 1 tab BID PO 08/03/19 09:00 08/08/19 09:48 Sodium Chloride 1,000 ml @ 70 mls/hr [id number] IV 08/01/19 12:15 08/01/19 16:29 DC 08/01/19 12:39 Sodium Chloride 1,000 ml @ 100 mls/hr Q10H IV 07/31/19 18:30 08/01/19 04:29 DC Sodium Chloride 1,000 ml @ 150 mls/hr Q6H40M IV 07/31/19 13:08 07/31/19 18:20 DC 07/31/19 14:10 Sodium Chloride (Saline Lock Flush) 10 ml ASDIRECTED PRN IV SEE LABEL COMMENTS 08/03/19 17:00 08/07/19 03:03 Sodium Chloride (Saline Lock Flush) 10 ml BID@0600,1800 IV 08/03/19 18:00 08/09/19 06:01 Tizanidine HCl (Zanaflex) 8 mg TID PO 07/31/19 21:00 08/01/19 13:41 DC 08/01/19 09:01 Tizanidine HCl (Zanaflex) 8 mg TID@0700,1500,2300 PO 08/01/19 15:00 08/09/19 14:57 Vitamin D (Vitamin D) 2,000 units DAILY PO 08/01/19 09:00 07/31/19 17:07 DC Zinc Sulfate (Zinc Sulfate) 220 mg DAILY PO 08/03/19 09:00 08/09/19 09:49 Allergies Coded Allergies: ciprofloxacin (Verified Allergy, Severe, mouth sores, 07/31/19) heparin (Verified Allergy, Severe, rash, hives, loss of voice , 08/03/19) Pt reports she had a DVT blood clot in her leg in 1994 and was put on a heparin drip. Pt states once on the heparin drug she developed a full body rash/hives and loss of voice. then determined she had a reaction Contrast Media (Unverified Allergy, Intermediate, IVP DYE - RASH, 04/27/16) oxycodone (Verified Allergy, Intermediate, 07/31/19) zolpidem (Verified Adverse Reaction, Intermediate, anxious, 07/31/19) tramadol (Verified Adverse Reaction, Unknown, dizzy, 07/31/19) Objective Physical Examination Examination GENERAL APPEARANCE:Patient seen, laying in bed, awake, alert, and oriented. Comfortable, in no acute distress. SKIN: Warm and moist. Right ischium wound [id number] 5 cm undermining at 12 o'clock. Granulating clean tissue 100%. Minimal serous drainage. No odor, no p urulence. Skin edges healing well. No residual redness. LUNGS: Clear to auscultation bilaterally. No wheezing appreciated. HEART: No chest wall abnormalities. Regular rate and rhythm with no murmurs appreciated. ABDOMEN: Abdomen is soft NT/ND Vital Signs Vital Signs Date Time Temp Pulse Resp B/P (MAP) Pulse Ox O2 Delivery O2 Flow Rate FiO2 08/09/19 13:46 97.3 86 16 120/58 (78) 99 I&Os I&O- Last 24 Hours up to 6 AM 08/09/19 05:59 Intake Total 1306 ml Output Total 2050 ml Balance -744 ml Laboratory Data Labs 24H Laboratory Tests 2 08/09/19 01:39: Clostridium difficile [id number] , Clostridium difficile Toxin (PCR) 08/09/19 05:18: Immature Granulocyte % (Auto) 1.0, White Blood Count 7.4, Red Blood Count 3.48L, Hemoglobin 10.7L, Hematocrit 33.1L, Mean Corpuscular Volume 95.1, Mean Corpuscular Hemoglobin 30.7, Mean Corpuscular Hemoglobin Concent 32.3, Red Cell Distribution Width 12.7, Platelet Count 580H, Neutrophils (%) (Auto) 59.3, Lymphocytes (%) (Auto) 27.3, Monocytes (%) (Auto) 10.3H, Eosinophils (%) (Auto) 1.6, Basophils (%) (Auto) 0.5, Neutrophils # (Auto) 4.4, Lymphocytes # (Auto) 2 .0, Monocytes # (Auto) 0.8, Eosinophils # (Auto) 0.1, Basophils # (Auto) 0.0, Nucleated Red Blood Cells % (auto) 0.0, Anion Gap 5L, Glomerular Filtration Rate > 60.0, Blood Urea Nitrogen 24H, Creatinine 0.49L, Sodium Level 143, Potassium Level 3.7, Chloride Level 108H, Carbon Dioxide Level 30, Calcium Level 8.8, C- Reactive Protein, Quantitative 2.36H CBC/BMP Laboratory Tests 08/09/19 05:18 Red Blood Count 3.48 L, Mean Corpuscular Volume 95.1, Mean Corpuscular Hemoglobin 30.7, Mean Corpuscular Hemoglobin Concent 32.3, Red Cell Distribution Width 12.7, Neutrophils (%) (Auto) 59.3, Lymphocytes (%) (Auto) 27.3, Monocytes (%) (Auto) 10.3 H, Eosinophils (%) (Auto) 1.6, Basophils (%) (Auto) 0.5, Neutrophils # (Auto) 4.4, Lymphocytes # (Auto) 2.0, Monocytes # (Auto) 0.8, Eosi nophils # (Auto) 0.1, Basophils # (Auto) 0.0, Calcium Level 8.8 Microbiology Microbiology 08/05/19 Blood Culture - Preliminary, Resulted No Growth after 72 hours. All specime... 08/05/19 Blood Culture - Preliminary, Resulted No Growth after 72 hours. All specime... 08/01/19 Wound Culture - Final, Complete Escherichia Coli Enterococcus Faecalis Staphylococcus Sp Coag Neg 08/01/19 Anaerobic Culture - Final, Complete Veillonella Parvula Anaerobic Cocci Porphyromonas Asaccharolytica 07/31/19 Blood Culture - Final, Complete NO GROWTH AFTER 5 DAYS 07/31/19 Blood Culture - Preliminary, Resulted Impression Wound: Improving. Wound vac changed today. Patient is being compliant with off loading. Continue with air mattress She may be out of bed for 2 hours at the time, may have therapy for three hours a day, but not at the same time. Limit direct pressure on affected area (Right ischium) for 1 hour at the time. Next dressing change Wednesday. All findings discussed with patient. Plan / VTE VTE Prophylaxis Ordered?: Yes PEGGY MEIER DO Aug 09, 2019 16:47
[2019-08-09] MEDS ORDERED: SODIUM CHLORIDE 0.9% 1000ML IV ONE (17:15)
[2019-08-09] MEDS: LOPERAMIDE 2 MG CAP PO PRN (17:23)
[2019-08-09] MEDS: MULTIVITAMINS/MINERALS THERAP 1 TAB PO SCH (20:03)
[2019-08-09 22:00] VITALS: BP 136/72
[2019-08-10] MEDS: BACLOFEN 10 MG TAB PO SCH ×4 (01:00→18:30)
[2019-08-10] MEDS: diphenhydrAMINE 25 MG CAP PO PRN (01:00)
[2019-08-10] MEDS: PIPERACILLIN/TAZOBACTAM SOD 3.375 GM in D5W MINI-BAG PLUS 50 ML IV SCH ×4 (02:27→20:30)
[2019-08-10 06:00] VITALS: BP 132/70
[2019-08-10] MEDS: SODIUM CHLORIDE 0.9% INJ 10 ML SYR IV SCH ×2 (06:02→18:02)
[2019-08-10 06:13] LABS: BASO # 0.1 10^3/uL (0.0-0.2); BASO % 0.8 % (0.0-1.0); EOS # 0.1 10^3/uL (0.0-0.5); EOS % 1.6 % (0.0-3.0); HEMATOCRIT 34.6 % (36.0-47.0); HEMOGLOBIN 10.9 g/dl (12.0-15.5); LYMPH % 25.7 % (24.0-44.0); MEAN CORPUSCULAR HEMOGLOBIN 30.3 pg (27.0-33.0); MEAN CORPUSCULAR HGB CONC 31.5 g/dl (32.0-36.5); MEAN CORPUSCULAR VOLUME 96.1 fl (80.0-96.0); MONO # 0.7 10^3/uL (0.0-0.8); MONO % 9.4 % (0.0-5.0); NEUTROPHILS # 4.8 10^3/uL (1.5-8.5); NEUTROPHILS % 61.7 % (36.0-66.0); PLATELET COUNT, AUTOMATED 598 10^3/uL (150-450); WHITE BLOOD COUNT 7.7 10^3/uL (4.0-10.0)
[2019-08-10 06:43] LABS: BLOOD UREA NITROGEN 33 MG/DL (7-18); CALCIUM LEVEL 8.8 MG/DL (8.5-10.1); CARBON DIOXIDE LEVEL 29 MEQ/L (21-32); CHLORIDE LEVEL 109 MEQ/L (98-107); CREATININE FOR GFR 0.51 MG/DL (0.55-1.30); GLOMERULAR FILTRATION RATE > 60.0 (>51); GLUCOSE, FASTING 94 MG/DL (70-100); POTASSIUM SERUM 4.1 MEQ/L (3.5-5.1); SODIUM LEVEL 143 MEQ/L (136-145)
[2019-08-10] MEDS: tiZANidine 4 MG TAB PO SCH ×3 (06:52→22:45)
[2019-08-10 08:15] VITALS: BP 136/68
[2019-08-10] MEDS ORDERED: oxyBUTYnin *DITROPAN XL* 5 MG TABCR PO SCH (09:00)
[2019-08-10] MEDS: ANALGESIC BALM CRM 120 GM TOP SCH ×2 (09:00→20:32)
[2019-08-10 09:35] LABS: ALBUMIN 2.1 GM/DL (3.2-5.2); ALT/SGPT 22 U/L (12-78); BILIRUBIN,DIRECT < 0.1 MG/DL (0.0-0.2); BILIRUBIN,TOTAL 0.2 MG/DL (0.2-1.0); TOTAL PROTEIN 6.3 GM/DL (6.4-8.2)
[2019-08-10] MEDS: LYSINE 1000 MG PO SCH (09:50)
[2019-08-10] MEDS: ZINC SULFATE 220 MG CAP PO SCH (09:50)
[2019-08-10] MEDS: ASCORBIC ACID 500 MG TAB PO SCH ×2 (09:51→20:31)
[2019-08-10] MEDS: APIXABAN 2.5 MG TAB (ELIQUIS) PO SCH ×2 (09:51→20:31)
[2019-08-10] MEDS: CALCIUM/VITAMIN D 500 MG TAB PO SCH ×3 (09:51→20:31)
[2019-08-10] MEDS: METOPROLOL SUCC *XL* 25MG TAB (TopROL *XL*) PO SCH (09:51)
[2019-08-10] MEDS: SENOKOT S TAB PO SCH ×2 (09:51→20:32)
[2019-08-10] MEDS ORDERED: SODIUM CHLORIDE 0.9% 1000ML IV ONE (10:00)
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
[2019-08-10 14:00] VITALS: BP 145/68
[2019-08-10] MEDS: LOPERAMIDE 2 MG CAP PO PRN ×2 (18:59→20:31)
[2019-08-10] MEDS: MULTIVITAMINS/MINERALS THERAP 1 TAB PO SCH (20:31)
[2019-08-10 22:00] VITALS: BP 137/68
[2019-08-11] MEDS: PIPERACILLIN/TAZOBACTAM SOD 3.375 GM in D5W MINI-BAG PLUS 50 ML IV SCH ×2 (01:18→08:00)
[2019-08-11] MEDS: LOPERAMIDE 2 MG CAP PO PRN (01:19)
[2019-08-11] MEDS: BACLOFEN 10 MG TAB PO SCH ×4 (01:19→18:37)
[2019-08-11] MEDS: diphenhydrAMINE 25 MG CAP PO PRN (01:19)
[2019-08-11 06:00] VITALS: BP 121/69
[2019-08-11 06:16] LABS: BASO # 0.1 10^3/uL (0.0-0.2); BASO % 0.7 % (0.0-1.0); EOS # 0.1 10^3/uL (0.0-0.5); EOS % 1.6 % (0.0-3.0); HEMATOCRIT 33.4 % (36.0-47.0); HEMOGLOBIN 10.9 g/dl (12.0-15.5); LYMPH # 1.9 10^3/uL (1.5-5.0); LYMPH % 24.8 % (24.0-44.0); MEAN CORPUSCULAR HEMOGLOBIN 31.1 pg (27.0-33.0); MEAN CORPUSCULAR HGB CONC 32.6 g/dl (32.0-36.5); MEAN CORPUSCULAR VOLUME 95.2 fl (80.0-96.0); MONO # 0.7 10^3/uL (0.0-0.8); MONO % 9.3 % (0.0-5.0); NEUTROPHILS # 4.8 10^3/uL (1.5-8.5); NEUTROPHILS % 62.8 % (36.0-66.0); PLATELET COUNT, AUTOMATED 595 10^3/uL (150-450); RED BLOOD COUNT 3.51 10^6/uL (4.00-5.40); WHITE BLOOD COUNT 7.6 10^3/uL (4.0-10.0)
[2019-08-11 06:36] LABS: BLOOD UREA NITROGEN 21 MG/DL (7-18); CALCIUM LEVEL 8.8 MG/DL (8.5-10.1); CARBON DIOXIDE LEVEL 29 MEQ/L (21-32); CHLORIDE LEVEL 109 MEQ/L (98-107); CREATININE FOR GFR 0.48 MG/DL (0.55-1.30); GLOMERULAR FILTRATION RATE > 60.0 (>51); GLUCOSE, FASTING 83 MG/DL (70-100); POTASSIUM SERUM 3.6 MEQ/L (3.5-5.1); SODIUM LEVEL 144 MEQ/L (136-145)
[2019-08-11] MEDS: tiZANidine 4 MG TAB PO SCH ×3 (06:51→22:11)
[2019-08-11] MEDS: SODIUM CHLORIDE 0.9% INJ 10 ML SYR IV SCH ×2 (06:51→18:37)
[2019-08-11] MEDS: ANALGESIC BALM CRM 120 GM TOP SCH ×2 (09:00→21:52)
[2019-08-11] MEDS ORDERED: oxyBUTYnin 5 MG TAB PO SCH ×2 (09:00→21:00)
[2019-08-11] MEDS: SENOKOT S TAB PO SCH (09:00)
[2019-08-11] MEDS: ASCORBIC ACID 500 MG TAB PO SCH ×2 (09:22→21:53)
[2019-08-11] MEDS: ZINC SULFATE 220 MG CAP PO SCH (09:22)
[2019-08-11] MEDS: LYSINE 1000 MG PO SCH (09:23)
[2019-08-11] MEDS: APIXABAN 2.5 MG TAB (ELIQUIS) PO SCH ×2 (09:23→21:53)
[2019-08-11] MEDS: CALCIUM/VITAMIN D 500 MG TAB PO SCH ×3 (09:23→21:53)
[2019-08-11] MEDS: METOPROLOL SUCC *XL* 25MG TAB (TopROL *XL*) PO SCH (09:26)
[2019-08-11] MEDS ORDERED: cefTRIAXone SOD 2 GM in D5W MINI-BAG PLUS 50 ML IV SCH (13:15)
[2019-08-11] MEDS ORDERED: metroNIDAZOLE (FLAGYL) 500 MG TAB PO SCH (13:15)
--- NOTE | 2019-08-11 13:59 | IPN ---
DATE: 08/11/2019 Radha doing well except for a problem with diarrhea. She states that she has not been taking her Senokot, although there is a documented dose that was given to her yesterday 08/10/2019 and 08/08/2019 one tablet. She denies any abdominal pain, nausea, vomiting. No fever or chills. She was complaining of sweating above T3 level from pressure from the wound vacuum-assisted closure (VAC). Her dose of Ditropan has been increased to 12.5 twice a day. PHYSICAL EXAM: Heart: Normal S1 and S2. No murmurs. Lungs are clear. No wheezes, rales or rhonchi. Abdomen: Soft, nontender. No visceromegaly. Extremities: No edema, paraplegia T3 and below, right hip ischial tuberosity with an ulcer that probes down to bone. The bed of the ulcer does not have good granulation tissue. There is no purulence surrounding the ulcer. Skin is slightly erythematous and peeling but improved. The size of the ulcer has slightly decreased as well. It measures about 4 x 3 cm. Temperature is 97.4, pulse 84, respirations 15, blood pressure 121/69, oxygen saturation 98% on room air. LABS: White count 7.6, hemoglobin 10.9, hematocrit 33.4, platelets 595, 62% neutrophils, 25% lymphocytes, 9% monocytes. Sodium 144, potassium 3.6, chloride 109, bicarbonate 29, BUN 21, which is down from 33 after she received saline 1 liter, glucose 83, calcium 8.8, CRP 1.65, down from 22.4. Cultures had Escherichia (E) coli, E faecalis, Staphylococcus coagulase negative, salmonella, anaerobic cocci, Porphyromonas and one culture out of two on had anaerobic cocci. IMPRESSION: 1. Sacral decubitus with ischial osteomyelitis and polymicrobial abscess on IV Zosyn doing much better. The patient has significant diarrhea. She had some doses of laxatives. The stool is soft, but not watery, unlikely to be C difficile with clinical improvement. We will switch her to IV Invanz to decrease antibiotic associated diarrhea side effect. 2. Diarrhea. Most likely antibiotic associated. Switched to Invanz 1 gram daily. That would also make it easier for home IV antibiotic. Add Lomotil 1 tablet by mouth three times a day. If patient developed a white count, fever or worsening symptoms, please send a stool for C diff. 3. 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 Dr. Pavon has been consulted and has increased her dose of Ditropan to 12.5 twice a day.
[2019-08-11 14:00] VITALS: BP 140/77
[2019-08-11] MEDS ORDERED: LOMOTIL 2.5MG/0.025MG TABLET PO ONE (14:00)
[2019-08-11] MEDS: ERTAPENEM SODIUM 1 GM in NS MINI-BAG PLUS 50 ML IV SCH (15:45)
--- NOTE | 2019-08-11 16:28 | IPNPDOC ---
Subjective General Date/Time Seen The patient was seen on 08/11/19 at 13:24. Subject Chief Complaint/History The patient is a 58-year-old female admitted with a reason for visit of Wound Of Sacral Region. Patient is doing PT/OT. On antibiotics. Feeling better. Still has some residual diarrhea. Wound vac is in place, tolerating well. Current Medications Current Medications Current Medications Medications (Trade) Dose Ordered Sig/Kelli Route PRN Reason Start Time Stop Time Status Last Admin Dose Admin Alendronate Sodium (Fosamax) 70 mg Tu@0600 PO 08/01/19 06:00 08/08/19 05:40 Apixaban (Eliquis) 2.5 mg BID PO 07/31/19 21:00 08/11/19 09:23 Ascorbic Acid (Vitamin C) 500 mg BID PO 08/03/19 09:00 08/11/19 09:22 Baclofen (Lioresal) 40 mg 0100,0700,1300,1900 PO 08/01/19 13:00 08/11/19 14:11 Baclofen (Lioresal) 40 mg QID PO 07/31/19 17:00 08/01/19 13:41 DC 08/01/19 09:00 Calcium/Vitamin D (Oscal D) 500 mg TID PO 07/31/19 21:00 08/11/19 15:45 Ceftriaxone Sodium 2 gm/ Dextrose 50 ml @ 100 mls/hr Q24H IV 08/11/19 13:15 08/11/19 13:16 DC Diphenhydramine HCl (Benadryl) 25 mg QHSP PRN PO INSOMNIA 08/06/19 11:45 08/11/19 13:14 DC 08/11/19 01:19 Diphenhydramine HCl (Benadryl) 50 mg STAT STAT IV 07/31/19 14:19 07/31/19 14:20 DC 07/31/19 15:14 Diphenoxylate HCl/ Atropine (Lomotil 2.5mg/ 0.025mg) 1 ea TID PO 08/11/19 21:00 Enoxaparin Sodium (Lovenox) 40 mg DAILY@2100 SC 07/31/19 21:00 07/31/19 17:09 DC Ertapenem 1 gm/ Sodium Chloride 50 ml @ 100 mls/hr Q24H IV 08/11/19 15:00 08/11/19 15:45 Heparin Sodium (Heparin (Flush)) 100 units ASDIRECTED PRN IV SEE LABEL COMMENTS 08/03/19 17:00 08/03/19 19:19 DC Heparin Sodium (Heparin (Flush)) 100 units BID@0600,1800 IV 08/03/19 18:00 08/03/19 19:19 DC 08/03/19 18:55 Home Med (Med Rec Complete!) ASDIRECTED XX 07/31/19 13:45 07/31/19 13:59 DC Loperamide HCl (Imodium) 2 mg ASDIRECTED PRN PO DIARRHEA 08/09/19 16:00 08/11/19 13:14 DC 08/11/19 01:19 Magnesium Hydroxide (Milk Of Magnesia) 30 ml DAILYPRN PRN PO CONSTIPATION 08/03/19 09:00 08/11/19 13:14 DC 08/06/19 08:49 Menthol/Methyl Salicylate (Bengay Cream) apply to neck for pain BID TOP 08/03/19 09:00 08/10/19 20:32 Metoprolol Succinate (TopROL XL) 25 mg DAILY PO 08/01/19 09:00 08/11/19 09:26 Metronidazole (Flagyl) 500 mg Q6H PO 08/11/19 13:15 08/11/19 13:16 DC Miscellaneous (Unresolved Patient Own Med Order) SEE LABEL COMMENTS DAILY XX 07/31/19 09:00 07/31/19 18:25 DC Miscellaneous (Unresolved Patient Own Med Order) SEE LABEL COMMENTS DAILY XX 08/07/19 09:00 08/08/19 23:02 DC Multivitamins (Theragram-M) 1 tab QHS PO 07/31/19 21:00 08/10/19 20:31 Oxybutynin Chloride (Ditropan Xl) 25 mg DAILY PO 08/10/19 09:00 08/10/19 16:11 DC 08/10/19 10:54 Oxybutynin Chloride (Ditropan Xl) 25 mg DAILY PO 08/09/19 14:00 Cancel Oxybutynin Chloride (Ditropan) 2.5 mg BID PO 08/11/19 21:00 08/11/19 13:54 DC Oxybutynin Chloride (Ditropan) 10 mg BID PO 07/31/19 21:00 08/09/19 13:02 DC 08/09/19 09:50 Oxybutynin Chloride (Ditropan) 10 mg BID PO 08/11/19 09:00 08/11/19 13:54 DC 08/11/19 09:23 Oxybutynin Chloride (Ditropan) 12.5 mg BID PO 08/11/19 21:00 Oxymetazoline HCl (Afrin) 2 spray BID PRN NA CONGESTION 08/08/19 02:30 08/11/19 02:30 DC 08/08/19 20:05 Patient Own Medication (Patient'S Own Med) 1 TAB DAILY PO 08/09/19 09:00 08/11/19 09:23 Patient Own Medication (Patient'S Own Med) Lysine 1000mg daily DAILY PO 08/01/19 09:00 07/31/19 18:24 DC Piperacillin Sod/ Tazobactam Sod 3.375 gm/Dextrose 50 ml @ 50 mls/hr Q6H IV 07/31/19 20:00 08/11/19 13:40 DC 08/11/19 08:00 Senna/Docusate Sodium (Senokot S) 1 tab BID PO 08/03/19 09:00 08/11/19 10:16 DC 08/10/19 09:51 Sodium Chloride 1,000 ml @ 70 mls/hr [id number] IV 08/01/19 12:15 08/01/19 16:29 DC 08/01/19 12:39 Sodium Chloride 1,000 ml @ 100 mls/hr Q10H IV 07/31/19 18:30 08/01/19 04:29 DC Sodium Chloride 1,000 ml @ 150 mls/hr Q6H40M IV 07/31/19 13:08 07/31/19 18:20 DC 07/31/19 14:10 Sodium Chloride (Saline Lock Flush) 10 ml ASDIRECTED PRN IV SEE LABEL COMMENTS 08/03/19 17:00 08/07/19 03:03 Sodium Chloride (Saline Lock Flush) 10 ml BID@0600,1800 IV 08/03/19 18:00 08/11/19 06:51 Tizanidine HCl (Zanaflex) 8 mg TID PO 07/31/19 21:00 08/01/19 13:41 DC 08/01/19 09:01 Tizanidine HCl (Zanaflex) 8 mg TID@0700,1500,2300 PO 08/01/19 15:00 08/11/19 15:45 Vitamin D (Vitamin D) 2,000 units DAILY PO 08/01/19 09:00 07/31/19 17:07 DC Zinc Sulfate (Zinc Sulfate) 220 mg DAILY PO 08/03/19 09:00 08/11/19 09:22 Allergies Coded Allergies: ciprofloxacin (Verified Allergy, Severe, mouth sores, 07/31/19) heparin (Verified Allergy, Severe, rash, hives, loss of voice , 08/03/19) Pt reports she had a DVT blood clot in her leg in 1994 and was put on a heparin drip. Pt states once on the heparin drug she developed a full body rash/hives and loss of voice. then determined she had a reaction Contrast Media (Unverified Allergy, Intermediate, IVP DYE - RASH, 04/27/16) oxycodone (Verified Allergy, Intermediate, 07/31/19) zolpidem (Verified Adverse Reaction, Intermediate, anxious, 07/31/19) tramadol (Verified Adverse Reaction, Unknown, dizzy, 07/31/19) Objective Physical Examination Examination GENERAL APPEARANCE:Patient seen, laying in bed, awake, alert, and oriented. Comfortable, in no acute distress. SKIN: Warm and moist. HEART: [No chest wall abnormalities. Regular rate and rhythm with no murmurs appreciated]. ABDOMEN: Abdomen is soft, NT/ND Vital Signs Vital Signs Date Time Temp Pulse Resp B/P (MAP) Pulse Ox O2 Delivery O2 Flow Rate FiO2 08/11/19 14:00 99.1 52 18 140/77 (98) 95 I&Os I&O- Last 24 Hours up to 6 AM 08/11/19 06:00 Intake Total 2970 ml Output Total 4450 ml Balance -1480 ml Laboratory Data Labs 24H Laboratory Tests 2 08/11/19 05:24: Immature Granulocyte % (Auto) 0.8, White Blood Count 7.6, Red Blood Count 3.51L, Hemoglobin 10.9L, Hematocrit 33.4L, Mean Corpuscular Volume 95.2, Mean Corpuscular Hemoglobin 31.1, Mean Corpuscular Hemoglobin Concent 32.6, Red Cell Distribution Width 13.2, Platelet Count 595H, Neutrophils (%) (Auto) 62.8, Lymphocytes (%) (Auto) 24.8, Monocytes (%) (Auto) 9.3H, Eosinophils (%) (Auto) 1.6, Basophils (%) (Auto) 0.7, Neutrophils # (Auto) 4.8, Lymphocytes # (Auto) 1.9, Monocytes # (Auto) 0.7, Eosinophils # (Auto) 0.1, Basophils # (Auto) 0.1, Nucleated Red Blood Cells % (auto) 0.0, Anion Gap 6L, Glomerular Filtration Rate > 60.0, Blood Urea Nitrogen 21H, Creatinine 0.48L, Sodium Level 144, Potassium Level 3.6, Chloride Level 109H, Carbon Dioxide Level 29, Calcium Level 8.8, C- Reactive Protein, Quantitative 1.65H CBC/BMP Laboratory Tests 08/11/19 05:24 Red Blood Count 3.51 L, Mean Corpuscular Volume 95.2, Mean Corpuscular Hemoglobin 31.1, Mean Corpuscular Hemoglobin Concent 32.6, Red Cell Distribution Width 13.2, Neutrophils (%) (Auto) 62.8, Lymphocytes (%) (Auto) 24.8, Monocytes (%) (Auto) 9.3 H, Eosinophils (%) (Auto) 1.6, Basophils (%) (Auto) 0.7, Neutrophils # (Auto) 4.8, Lymphocytes # (Auto) 1.9, Monocytes # (Auto) 0.7, Eosinophils # (Auto) 0.1, Basophils # (Auto) 0.1, Calcium Level 8.8 Microbiology Microbiology 08/05/19 Blood Culture - Final, Complete NO GROWTH AFTER 5 DAYS 08/05/19 Blood Culture - Final, Complete NO GROWTH AFTER 5 DAYS 08/01/19 Wound Culture - Final, Complete Escherichia Coli Enterococcus Faecalis Staphylococcus Sp Coag Neg 08/01/19 Anaerobic Culture - Final, Complete Veillonella Parvula Anaerobic Cocci Porphyromonas Asaccharolytica Impression RIght ischial wound stage 4. Improving. New granulation from withing. Bone is covered. Serosanguinous drainage mild. No odor. No purulence. Continue with Endofoam/Wound vac. Dressings changed today. Next dressing change Casey. Continue with ID, PM&R recommendations. Plan / VTE VTE Prophylaxis Ordered?: Yes PEGGY MEIER DO Aug 11, 2019 16:28
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
[2019-08-11] MEDS: oxyBUTYnin 5 MG TAB PO SCH (21:50)
[2019-08-11] MEDS: MULTIVITAMINS/MINERALS THERAP 1 TAB PO SCH (21:53)
[2019-08-11] MEDS: LOMOTIL 2.5MG/0.025MG TABLET PO SCH (21:53)
[2019-08-11 22:00] VITALS: BP 127/64
[2019-08-11] MEDS ORDERED: PILL CUTTER 1 EACH XX PRN (22:00)
[2019-08-11] MEDS: SODIUM CHLORIDE 0.9% INJ 10 ML SYR IV PRN (22:12)
[2019-08-12] MEDS: BACLOFEN 10 MG TAB PO SCH ×4 (00:39→18:16)
[2019-08-12] MEDS ORDERED: traZODone 25MG PER 1/2 TABLET PO ONE (00:45)
[2019-08-12 06:00] VITALS: BP 134/70
[2019-08-12 06:23] LABS: BASO # 0.1 10^3/uL (0.0-0.2); BASO % 0.8 % (0.0-1.0); EOS # 0.1 10^3/uL (0.0-0.5); EOS % 1.5 % (0.0-3.0); HEMATOCRIT 34.5 % (36.0-47.0); HEMOGLOBIN 10.9 g/dl (12.0-15.5); LYMPH # 1.9 10^3/uL (1.5-5.0); LYMPH % 24.8 % (24.0-44.0); MEAN CORPUSCULAR HEMOGLOBIN 30.5 pg (27.0-33.0); MEAN CORPUSCULAR HGB CONC 31.6 g/dl (32.0-36.5); MEAN CORPUSCULAR VOLUME 96.6 fl (80.0-96.0); MONO # 0.8 10^3/uL (0.0-0.8); MONO % 11.1 % (0.0-5.0); NEUTROPHILS # 4.6 10^3/uL (1.5-8.5); NEUTROPHILS % 61.3 % (36.0-66.0); PLATELET COUNT, AUTOMATED 554 10^3/uL (150-450); RED BLOOD COUNT 3.57 10^6/uL (4.00-5.40); WHITE BLOOD COUNT 7.5 10^3/uL (4.0-10.0)
[2019-08-12] MEDS: SODIUM CHLORIDE 0.9% INJ 10 ML SYR IV SCH ×2 (06:33→18:17)
[2019-08-12] MEDS: tiZANidine 4 MG TAB PO SCH ×3 (06:33→23:05)
[2019-08-12 06:51] LABS: BLOOD UREA NITROGEN 32 MG/DL (7-18); CALCIUM LEVEL 8.9 MG/DL (8.5-10.1); CARBON DIOXIDE LEVEL 31 MEQ/L (21-32); CHLORIDE LEVEL 107 MEQ/L (98-107); CREATININE FOR GFR 0.41 MG/DL (0.55-1.30); GLOMERULAR FILTRATION RATE > 60.0 (>51); GLUCOSE, FASTING 81 MG/DL (70-100); POTASSIUM SERUM 4.8 MEQ/L (3.5-5.1); SODIUM LEVEL 141 MEQ/L (136-145)
[2019-08-12] MEDS: METOPROLOL SUCC *XL* 25MG TAB (TopROL *XL*) PO SCH (08:33)
[2019-08-12] MEDS: oxyBUTYnin 5 MG TAB PO SCH ×2 (08:33→20:20)
[2019-08-12] MEDS: ZINC SULFATE 220 MG CAP PO SCH (08:34)
[2019-08-12] MEDS: LOMOTIL 2.5MG/0.025MG TABLET PO SCH ×3 (08:34→20:26)
[2019-08-12] MEDS: APIXABAN 2.5 MG TAB (ELIQUIS) PO SCH ×2 (08:34→20:21)
[2019-08-12] MEDS: ASCORBIC ACID 500 MG TAB PO SCH ×2 (08:34→20:21)
[2019-08-12] MEDS: CALCIUM/VITAMIN D 500 MG TAB PO SCH ×3 (08:34→20:21)
[2019-08-12] MEDS: LYSINE 1000 MG PO SCH (08:35)
[2019-08-12] MEDS: ANALGESIC BALM CRM 120 GM TOP SCH ×2 (08:35→20:22)
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
[2019-08-12 14:00] VITALS: BP 140/66
[2019-08-12] MEDS: ERTAPENEM SODIUM 1 GM in NS MINI-BAG PLUS 50 ML IV SCH (15:48)
[2019-08-12] MEDS: MULTIVITAMINS/MINERALS THERAP 1 TAB PO SCH (20:21)
[2019-08-12 22:00] VITALS: BP 124/67
[2019-08-13] MEDS: BACLOFEN 10 MG TAB PO SCH ×4 (00:23→18:06)
[2019-08-13] MEDS: diphenhydrAMINE 25 MG CAP PO PRN (00:23)
[2019-08-13 05:50] LABS: BASO # 0.1 10^3/uL (0.0-0.2); BASO % 0.9 % (0.0-1.0); EOS # 0.1 10^3/uL (0.0-0.5); HEMATOCRIT 35.6 % (36.0-47.0); HEMOGLOBIN 11.2 g/dl (12.0-15.5); LYMPH # 1.8 10^3/uL (1.5-5.0); MEAN CORPUSCULAR HEMOGLOBIN 29.7 pg (27.0-33.0); MEAN CORPUSCULAR HGB CONC 31.5 g/dl (32.0-36.5); MEAN CORPUSCULAR VOLUME 94.4 fl (80.0-96.0); MONO # 0.8 10^3/uL (0.0-0.8); MONO % 11.3 % (0.0-5.0); NEUTROPHILS # 4.1 10^3/uL (1.5-8.5); NEUTROPHILS % 59.4 % (36.0-66.0); PLATELET COUNT, AUTOMATED 532 10^3/uL (150-450); RED BLOOD COUNT 3.77 10^6/uL (4.00-5.40); WHITE BLOOD COUNT 6.9 10^3/uL (4.0-10.0)
[2019-08-13 06:00] VITALS: BP 124/64
[2019-08-13 06:07] LABS: BLOOD UREA NITROGEN 24 MG/DL (7-18); CALCIUM LEVEL 9.3 MG/DL (8.5-10.1); CARBON DIOXIDE LEVEL 30 MEQ/L (21-32); CHLORIDE LEVEL 108 MEQ/L (98-107); CREATININE FOR GFR 0.44 MG/DL (0.55-1.30); GLOMERULAR FILTRATION RATE > 60.0 (>51); GLUCOSE, FASTING 89 MG/DL (70-100); POTASSIUM SERUM 3.9 MEQ/L (3.5-5.1); SODIUM LEVEL 143 MEQ/L (136-145)
[2019-08-13] MEDS: tiZANidine 4 MG TAB PO SCH ×3 (06:19→22:09)
[2019-08-13] MEDS: SODIUM CHLORIDE 0.9% INJ 10 ML SYR IV SCH ×2 (06:19→17:21)
[2019-08-13] MEDS: METOPROLOL SUCC *XL* 25MG TAB (TopROL *XL*) PO SCH (08:08)
[2019-08-13] MEDS: ZINC SULFATE 220 MG CAP PO SCH (08:08)
[2019-08-13] MEDS: CALCIUM/VITAMIN D 500 MG TAB PO SCH ×3 (08:08→22:08)
[2019-08-13] MEDS: oxyBUTYnin 5 MG TAB PO SCH ×2 (08:08→22:07)
[2019-08-13] MEDS: APIXABAN 2.5 MG TAB (ELIQUIS) PO SCH ×2 (08:08→22:09)
[2019-08-13] MEDS: ASCORBIC ACID 500 MG TAB PO SCH ×2 (08:08→22:08)
[2019-08-13] MEDS: LYSINE 1000 MG PO SCH (08:08)
[2019-08-13] MEDS: ANALGESIC BALM CRM 120 GM TOP SCH ×2 (08:14→22:09)
[2019-08-13 14:00] VITALS: BP 125/78
[2019-08-13] MEDS: ERTAPENEM SODIUM 1 GM in NS MINI-BAG PLUS 50 ML IV SCH (15:52)
[2019-08-13 22:00] VITALS: BP 120/68
[2019-08-13] MEDS: MULTIVITAMINS/MINERALS THERAP 1 TAB PO SCH (22:09)
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
[2019-08-14] MEDS: BACLOFEN 10 MG TAB PO SCH ×4 (00:12→18:33)
[2019-08-14] MEDS: diphenhydrAMINE 25 MG CAP PO PRN (00:12)
[2019-08-14 06:00] VITALS: BP 141/72
[2019-08-14] MEDS: SODIUM CHLORIDE 0.9% INJ 10 ML SYR IV SCH ×2 (06:11→18:33)
[2019-08-14 06:16] LABS: BASO # 0.1 10^3/uL (0.0-0.2); BASO % 0.6 % (0.0-1.0); EOS # 0.1 10^3/uL (0.0-0.5); EOS % 1.2 % (0.0-3.0); HEMATOCRIT 35.1 % (36.0-47.0); HEMOGLOBIN 11.1 g/dl (12.0-15.5); LYMPH % 25.2 % (24.0-44.0); MEAN CORPUSCULAR HEMOGLOBIN 29.5 pg (27.0-33.0); MEAN CORPUSCULAR HGB CONC 31.6 g/dl (32.0-36.5); MEAN CORPUSCULAR VOLUME 93.4 fl (80.0-96.0); MONO # 0.7 10^3/uL (0.0-0.8); MONO % 9.5 % (0.0-5.0); NEUTROPHILS # 4.9 10^3/uL (1.5-8.5); NEUTROPHILS % 63.2 % (36.0-66.0); PLATELET COUNT, AUTOMATED 505 10^3/uL (150-450); RED BLOOD COUNT 3.76 10^6/uL (4.00-5.40); WHITE BLOOD COUNT 7.8 10^3/uL (4.0-10.0)
[2019-08-14] MEDS: tiZANidine 4 MG TAB PO SCH ×3 (06:16→22:20)
[2019-08-14 06:34] LABS: BLOOD UREA NITROGEN 31 MG/DL (7-18); CARBON DIOXIDE LEVEL 28 MEQ/L (21-32); CHLORIDE LEVEL 108 MEQ/L (98-107); CREATININE FOR GFR 0.38 MG/DL (0.55-1.30); GLOMERULAR FILTRATION RATE > 60.0 (>51); GLUCOSE, FASTING 90 MG/DL (70-100); POTASSIUM SERUM 3.6 MEQ/L (3.5-5.1); SODIUM LEVEL 141 MEQ/L (136-145)
[2019-08-14] MEDS ORDERED: SODIUM CHLORIDE 0.9% 1000ML IV ONE (06:45)
[2019-08-14] MEDS: ANALGESIC BALM CRM 120 GM TOP SCH ×2 (09:00→21:00)
[2019-08-14] MEDS: oxyBUTYnin 5 MG TAB PO SCH ×2 (09:12→22:19)
[2019-08-14] MEDS: ASCORBIC ACID 500 MG TAB PO SCH ×2 (09:12→22:20)
[2019-08-14] MEDS: APIXABAN 2.5 MG TAB (ELIQUIS) PO SCH ×2 (09:12→22:21)
[2019-08-14] MEDS: ZINC SULFATE 220 MG CAP PO SCH (09:12)
[2019-08-14] MEDS: CALCIUM/VITAMIN D 500 MG TAB PO SCH ×3 (09:13→22:20)
[2019-08-14] MEDS: METOPROLOL SUCC *XL* 25MG TAB (TopROL *XL*) PO SCH (09:15)
[2019-08-14] MEDS: LYSINE 1000 MG PO SCH (09:15)
[2019-08-14 14:00] VITALS: BP 138/70
[2019-08-14] MEDS: ERTAPENEM SODIUM 1 GM in NS MINI-BAG PLUS 50 ML IV SCH (15:45)
--- NOTE | 2019-08-14 16:31 | IPNPDOC ---
Subjective General Date/Time Seen The patient was seen on 08/14/19 at 16:26. Subject Chief Complaint/History The patient is a 58-year-old female admitted with a reason for visit of Wound Of Sacral Region. Wound vac dressing change today. No problems with the dressings since last change. No fever, chills. Current Medications Current Medications Current Medications Medications (Trade) Dose Ordered Sig/Kelli Route PRN Reason Start Time Stop Time Status Last Admin Dose Admin Alendronate Sodium (Fosamax) 70 mg Tu@0600 PO 08/01/19 06:00 08/08/19 05:40 Apixaban (Eliquis) 2.5 mg BID PO 07/31/19 21:00 08/14/19 09:12 Ascorbic Acid (Vitamin C) 500 mg BID PO 08/03/19 09:00 08/14/19 09:12 Baclofen (Lioresal) 40 mg 0100,0700,1300,1900 PO 08/01/19 13:00 08/14/19 14:04 Baclofen (Lioresal) 40 mg QID PO 07/31/19 17:00 08/01/19 13:41 DC 08/01/19 09:00 Calcium/Vitamin D (Oscal D) 500 mg TID PO 07/31/19 21:00 08/14/19 15:45 Ceftriaxone Sodium 2 gm/ Dextrose 50 ml @ 100 mls/hr Q24H IV 08/11/19 13:15 08/11/19 13:16 DC Diphenhydramine HCl (Benadryl) 25 mg QHSP PRN PO INSOMNIA 08/12/19 18:45 08/14/19 00:12 Diphenhydramine HCl (Benadryl) 25 mg QHSP PRN PO INSOMNIA 08/06/19 11:45 08/11/19 13:14 DC 08/11/19 01:19 Diphenhydramine HCl (Benadryl) 50 mg STAT STAT IV 07/31/19 14:19 07/31/19 14:20 DC 07/31/19 15:14 Diphenoxylate HCl/ Atropine (Lomotil 2.5mg/ 0.025mg) 1 ea TID PO 08/11/19 21:00 08/13/19 06:49 DC 08/12/19 20:26 Enoxaparin Sodium (Lovenox) 40 mg DAILY@2100 SC 07/31/19 21:00 07/31/19 17:09 DC Ertapenem 1 gm/ Sodium Chloride 50 ml @ 100 mls/hr Q24H IV 08/11/19 15:00 08/14/19 15:45 Heparin Sodium (Heparin (Flush)) 100 units ASDIRECTED PRN IV SEE LABEL COMMENTS 08/03/19 17:00 08/03/19 19:19 DC Heparin Sodium (Heparin (Flush)) 100 units BID@0600,1800 IV 08/03/19 18:00 08/03/19 19:19 DC 08/03/19 18:55 Home Med (Med Rec Complete!) ASDIRECTED XX 07/31/19 13:45 07/31/19 13:59 DC Loperamide HCl (Imodium) 2 mg ASDIRECTED PRN PO DIARRHEA 08/09/19 16:00 08/11/19 13:14 DC 08/11/19 01:19 Magnesium Hydroxide (Milk Of Magnesia) 30 ml DAILYPRN PRN PO CONSTIPATION 08/03/19 09:00 08/11/19 13:14 DC 08/06/19 08:49 Menthol/Methyl Salicylate (Bengay Cream) apply to neck for pain BID TOP 08/03/19 09:00 08/13/19 22:09 Metoprolol Succinate (TopROL XL) 25 mg DAILY PO 08/01/19 09:00 08/14/19 09:15 Metronidazole (Flagyl) 500 mg Q6H PO 08/11/19 13:15 08/11/19 13:16 DC Miscellaneous (Unresolved Clarification Entry) SEE LABEL COMMENTS DAILY XX 08/13/19 09:00 Hold Miscellaneous (Unresolved Patient Own Med Order) SEE LABEL COMMENTS DAILY XX 07/31/19 09:00 07/31/19 18:25 DC Miscellaneous (Unresolved Patient Own Med Order) SEE LABEL COMMENTS DAILY XX 08/07/19 09:00 08/08/19 23:02 DC Multivitamins (Theragram-M) 1 tab QHS PO 07/31/19 21:00 08/13/19 22:09 Oxybutynin Chloride (Ditropan Xl) 25 mg DAILY PO 08/10/19 09:00 08/10/19 16:11 DC 08/10/19 10:54 Oxybutynin Chloride (Ditropan Xl) 25 mg DAILY PO 08/09/19 14:00 Cancel Oxybutynin Chloride (Ditropan) 2.5 mg BID PO 08/11/19 21:00 08/11/19 13:54 DC Oxybutynin Chloride (Ditropan) 10 mg BID PO 07/31/19 21:00 08/09/19 13:02 DC 08/09/19 09:50 Oxybutynin Chloride (Ditropan) 10 mg BID PO 08/11/19 09:00 08/11/19 13:54 DC 08/11/19 09:23 Oxybutynin Chloride (Ditropan) 12.5 mg BID PO 08/11/19 21:00 08/14/19 09:12 Oxymetazoline HCl (Afrin) 2 spray BID PRN NA CONGESTION 08/08/19 02:30 08/11/19 02:30 DC 08/08/19 20:05 Patient Own Medication (Patient'S Own Med) 1 TAB DAILY PO 08/09/19 09:00 08/14/19 09:15 Patient Own Medication (Patient'S Own Med) Lysine 1000mg daily DAILY PO 08/01/19 09:00 07/31/19 18:24 DC Piperacillin Sod/ Tazobactam Sod 3.375 gm/Dextrose 50 ml @ 50 mls/hr Q6H IV 07/31/19 20:00 08/11/19 13:40 DC 08/11/19 08:00 Senna/Docusate Sodium (Senokot S) 1 tab BID PO 08/03/19 09:00 08/11/19 10:16 DC 08/10/19 09:51 Sodium Chloride 1,000 ml @ 70 mls/hr [id number] IV 08/01/19 12:15 08/01/19 16:29 DC 08/01/19 12:39 Sodium Chloride 1,000 ml @ 100 mls/hr Q10H IV 07/31/19 18:30 08/01/19 04:29 DC Sodium Chloride 1,000 ml @ 150 mls/hr Q6H40M IV 07/31/19 13:08 07/31/19 18:20 DC 07/31/19 14:10 Sodium Chloride (Saline Lock Flush) 10 ml ASDIRECTED PRN IV SEE LABEL COMMENTS 08/03/19 17:00 08/11/19 22:12 Sodium Chloride (Saline Lock Flush) 10 ml BID@0600,1800 IV 08/03/19 18:00 08/14/19 06:11 Tizanidine HCl (Zanaflex) 8 mg TID PO 07/31/19 21:00 08/01/19 13:41 DC 08/01/19 09:01 Tizanidine HCl (Zanaflex) 8 mg TID@0700,1500,2300 PO 08/01/19 15:00 08/14/19 15:45 Vitamin D (Vitamin D) 2,000 units DAILY PO 08/01/19 09:00 07/31/19 17:07 DC Zinc Sulfate (Zinc Sulfate) 220 mg DAILY PO 08/03/19 09:00 08/14/19 09:12 Allergies Coded Allergies: ciprofloxacin (Verified Allergy, Severe, mouth sores, 07/31/19) heparin (Verified Allergy, Severe, rash, hives, loss of voice , 08/03/19) Pt reports she had a DVT blood clot in her leg in 1994 and was put on a heparin drip. Pt states once on the heparin drug she developed a full body rash/hives and loss of voice. then determined she had a reaction Contrast Media (Unverified Allergy, Intermediate, IVP DYE - RASH, 04/27/16) oxycodone (Verified Allergy, Intermediate, 07/31/19) zolpidem (Verified Adverse Reaction, Intermediate, anxious, 07/31/19) tramadol (Verified Adverse Reaction, Unknown, dizzy, 07/31/19) Objective Physical Examination Examination GENERAL APPEARANCE:Patient seen, laying in bed, awake, alert, and oriented. Comfortable, in no acute distress. SKIN: Warm and moist. Right ischium stage 4 wound. Granulating tissue 100%, size: 3.5x2.5x3cm undermining 4 cm. Minimal serosanguinous drainage. No odor. LUNGS: Clear to auscultation bilaterally. No wheezing appreciated. HEART: No chest wall abnormalities. Regular rate and rhythm with no murmurs appreciated. ABDOMEN: Abdomen is soft NT/ND Vital Signs Vital Signs Date Time Temp Pulse Resp B/P (MAP) Pulse Ox O2 Delivery O2 Flow Rate FiO2 10/14/19 09:15 70 152/79 08/14/19 06:00 98.3 18 98 I&Os I&O- Last 24 Hours up to 6 AM 08/14/19 06:00 Intake Total 1800 ml Output Total 2625 ml Balance -825 ml Laboratory Data Labs 24H Laboratory Tests 2 08/14/19 05:17: Immature Granulocyte % (Auto) 0.3, White Blood Count 7.8, Red Blood Count 3.76L, Hemoglobin 11.1L, Hematocrit 35.1L, Mean Corpuscular Volume 93.4, Mean Corpuscular Hemoglobin 29.5, Mean Corpuscular Hemoglobin Concent 31.6L, Red Cell Distribution Width 13.3, Platelet Count 505H, Neutrophils (%) (Auto) 63.2, Lymphocytes (%) (Auto) 25.2, Monocytes (%) (Auto) 9.5H, Eosinophils (%) (Auto) 1.2, Basophils (%) (Auto) 0.6, Neutrophils # (Auto) 4.9, Lymphocytes # (Auto) 2.0, Monocytes # (Auto) 0.7, Eosinophils # (Auto) 0.1, Basophils # (Auto) 0.1, Nucleated Red Blood Cells % (auto) 0.0, Anion Gap 5L, Glomerular Filtration Rate > 60.0, Blood Urea Nitrogen 31H, Creatinine 0.38L, Sodium Level 141, Potassium Level 3.6, Chloride Level 108H, Carbon Dioxide Level 28, Calcium Level 9.0 CBC/BMP Laboratory Tests 08/14/19 05:17 Red Blood Count 3.76 L, Mean Corpuscular Volume 93.4, Mean Corpuscular Hemoglobin 29.5, Mean Corpuscular Hemoglobin Concent 31.6 L, Red Cell Di stribution Width 13.3, Neutrophils (%) (Auto) 63.2, Lymphocytes (%) (Auto) 25.2, Monocytes (%) (Auto) 9.5 H, Eosinophils (%) (Auto) 1.2, Basophils (%) (Auto) 0.6, Neutrophils # (Auto) 4.9, Lymphocytes # (Auto) 2.0, Monocytes # (Auto) 0.7, Eosinophils # (Auto) 0.1, Basophils # (Auto) 0.1, Calcium Level 9.0 Microbiology Microbiology 08/05/19 Blood Culture - Final, Complete NO GROWTH AFTER 5 DAYS 08/05/19 Blood Culture - Final, Complete NO GROWTH AFTER 5 DAYS Impression Stage 4 Right ischial wound Improving Continue with Endofoam/Wound vac. at 125mm/Hg. Offload Level 2 mattress PT/OT Stable wound for outpatient or less acute care. Continue antibiotics per ID Pre Albumin levels Continue with Nutrition Plan / VTE VTE Prophylaxis Ordered?: Yes PEGGY MEIER DO Aug 14, 2019 16:31
[2019-08-14 16:54] LABS: PREALBUMIN 17.6 MG/DL (20.0-40.0)
[2019-08-14 22:00] VITALS: BP 126/68
[2019-08-14] MEDS: MULTIVITAMINS/MINERALS THERAP 1 TAB PO SCH (22:20)
[2019-08-15] MEDS: BACLOFEN 10 MG TAB PO SCH ×4 (01:13→19:22)
[2019-08-15] MEDS: diphenhydrAMINE 25 MG CAP PO PRN (01:14)
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
[2019-08-15 06:00] VITALS: BP 123/63
[2019-08-15 06:14] LABS: BASO # 0.1 10^3/uL (0.0-0.2); BASO % 0.9 % (0.0-1.0); EOS # 0.1 10^3/uL (0.0-0.5); EOS % 1.8 % (0.0-3.0); HEMATOCRIT 37.1 % (36.0-47.0); HEMOGLOBIN 11.6 g/dl (12.0-15.5); LYMPH # 1.6 10^3/uL (1.5-5.0); LYMPH % 24.5 % (24.0-44.0); MEAN CORPUSCULAR HGB CONC 31.3 g/dl (32.0-36.5); MEAN CORPUSCULAR VOLUME 95.9 fl (80.0-96.0); MONO # 0.7 10^3/uL (0.0-0.8); MONO % 10.2 % (0.0-5.0); NEUTROPHILS # 4.1 10^3/uL (1.5-8.5); NEUTROPHILS % 62.3 % (36.0-66.0); PLATELET COUNT, AUTOMATED 513 10^3/uL (150-450); RED BLOOD COUNT 3.87 10^6/uL (4.00-5.40); WHITE BLOOD COUNT 6.6 10^3/uL (4.0-10.0)
[2019-08-15] MEDS: ALENDRONATE 35MG TABLET PO SCH (06:20)
[2019-08-15] MEDS: SODIUM CHLORIDE 0.9% INJ 10 ML SYR IV SCH ×2 (06:20→17:55)
[2019-08-15 06:40] LABS: BLOOD UREA NITROGEN 28 MG/DL (7-18); CALCIUM LEVEL 9.1 MG/DL (8.5-10.1); CARBON DIOXIDE LEVEL 30 MEQ/L (21-32); CHLORIDE LEVEL 107 MEQ/L (98-107); CREATININE FOR GFR 0.44 MG/DL (0.55-1.30); GLOMERULAR FILTRATION RATE > 60.0 (>51); GLUCOSE, FASTING 90 MG/DL (70-100); POTASSIUM SERUM 4.2 MEQ/L (3.5-5.1); SODIUM LEVEL 141 MEQ/L (136-145)
[2019-08-15] MEDS: tiZANidine 4 MG TAB PO SCH ×3 (06:53→22:55)
[2019-08-15] MEDS: oxyBUTYnin 5 MG TAB PO SCH ×2 (08:32→20:49)
[2019-08-15] MEDS: APIXABAN 2.5 MG TAB (ELIQUIS) PO SCH ×2 (08:32→20:49)
[2019-08-15] MEDS: CALCIUM/VITAMIN D 500 MG TAB PO SCH ×3 (08:32→20:49)
[2019-08-15] MEDS: ZINC SULFATE 220 MG CAP PO SCH (08:32)
[2019-08-15] MEDS: ASCORBIC ACID 500 MG TAB PO SCH ×2 (08:32→20:49)
[2019-08-15] MEDS: ANALGESIC BALM CRM 120 GM TOP SCH ×2 (08:33→20:49)
[2019-08-15] MEDS: LYSINE 1000 MG PO SCH (08:33)
[2019-08-15] MEDS: METOPROLOL SUCC *XL* 25MG TAB (TopROL *XL*) PO SCH (08:33)
[2019-08-15 14:00] VITALS: BP 120/60
[2019-08-15] MEDS: ERTAPENEM SODIUM 1 GM in NS MINI-BAG PLUS 50 ML IV SCH (15:38)
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
[2019-08-15] MEDS: NYSTATIN CREAM 15 GM TOP SCH (20:48)
[2019-08-15] MEDS: MULTIVITAMINS/MINERALS THERAP 1 TAB PO SCH (20:49)
--- NOTE | 2019-08-15 21:12 | IPN ---
DATE: 08/15/2019 INFECTIOUS DISEASE PROGRESS NOTE Radha is doing well. She is anxious to go home. She has not been approved for acute rehab, and therefore, the plan will be to send her home with a wound VAC, hopefully on . She has no nausea, vomiting or diarrhea. This has completely resolved. She denies any pain. The swelling has also improved. She has a rash in the right medial groin area but denies pruritus. On physical exam, temperature is 98.9, pulse 86, respirations 20, blood pressure 120/60. She is awake, oriented times three. The wound VAC was not changed today, and therefore, I did not get to see the ulcer. Reviewed note from Dr. Garrison who changed the wound VAC yesterday. Describes it as having 100% granulation tissue measuring 3.5 x 3 cm with undermining of 4 cm and minimal serosanguineous drainage and no odor. LABORATORY DATA: White count 6.6, hemoglobin 11.6, hematocrit 37.1, platelets 513, 62% neutrophils, 24% lymphocytes, 10% monocytes. Sodium 141, potassium 4.2, chloride 107, bicarbonate 30, BUN 28, creatinine 0.44, glucose 90, calcium 9.1, prealbumin 18. Wound culture was positive for Escherichia (E) coli, Enterococcus faecalis, Staphylococcus coag negative, Anaerobic cocci, Porphyromonas. Blood culture was positive for Anaerobic cocci; on 07/31/2019 and 08/05/2019, two sets were negative. IMPRESSION: 1. Ischial osteomyelitis with polymicrobial abscess and bacteremia. The patient has been on IV antibiotics for the past 2 weeks, initially with IV Zosyn from 07/31/2019 to 08/11/2019, then IV Invanz . Currently day #16. Much improved. The patient could be switched to oral Augmentin when she is ready to be discharged home to finish a 4-week course. 2. Diarrhea associated with Zosyn, has resolved. 3. T3 paraplegia with autonomic dysreflexia, much improved on Ditropan 12.5 mg twice a day and offloading from the wound VAC. PLAN: Continue Invanz 1 gram every 24 hours while the patient is in the hospital. When she is ready for discharge, switch her to Augmentin 875 mg by mouth twice a day for 4 weeks. Monitor CBC, basic CRP, sedimentation (sed) rate weekly on discharge. I will see the patient as an outpatient in followup in 2 weeks. MTDD
[2019-08-15 22:00] VITALS: BP 142/60
[2019-08-16] MEDS: diphenhydrAMINE 25 MG CAP PO PRN (01:14)
[2019-08-16] MEDS: BACLOFEN 10 MG TAB PO SCH ×4 (01:14→18:36)
[2019-08-16 06:00] VITALS: BP 168/66
[2019-08-16] MEDS: tiZANidine 4 MG TAB PO SCH ×3 (06:47→23:07)
[2019-08-16] MEDS: SODIUM CHLORIDE 0.9% INJ 10 ML SYR IV SCH ×2 (06:48→18:36)
[2019-08-16] MEDS: ACETAMINOPHEN TAB 650MG DOSE (2X325MG) PO PRN (06:48)
[2019-08-16] MEDS: ANALGESIC BALM CRM 120 GM TOP SCH ×2 (09:00→21:00)
[2019-08-16] MEDS ORDERED: AUGM875T28 PO (09:24)
[2019-08-16] MEDS ORDERED: NYST10CR TOP (09:26)
[2019-08-16] MEDS ORDERED: CALCD50TA PO (09:26)
[2019-08-16] MEDS ORDERED: DIPH25CA32 PO (09:26)
[2019-08-16] MEDS ORDERED: OXYB5TAB10 PO (09:26)
[2019-08-16] MEDS ORDERED: ZINC220CA PO (09:26)
[2019-08-16] MEDS ORDERED: MUSCCRE9 TOP (09:26)
[2019-08-16] MEDS ORDERED: ASCO50TA PO (09:26)
[2019-08-16] MEDS ORDERED: DELUMIS2 XX (09:27)
[2019-08-16] MEDS: oxyBUTYnin 5 MG TAB PO SCH ×2 (11:15→21:10)
[2019-08-16] MEDS: ZINC SULFATE 220 MG CAP PO SCH (11:17)
[2019-08-16] MEDS: METOPROLOL SUCC *XL* 25MG TAB (TopROL *XL*) PO SCH (11:18)
[2019-08-16] MEDS: CALCIUM/VITAMIN D 500 MG TAB PO SCH ×3 (11:18→21:10)
[2019-08-16] MEDS: LYSINE 1000 MG PO SCH (11:19)
[2019-08-16] MEDS: APIXABAN 2.5 MG TAB (ELIQUIS) PO SCH ×2 (11:19→21:10)
[2019-08-16] MEDS: ASCORBIC ACID 500 MG TAB PO SCH ×2 (11:20→21:10)
[2019-08-16] MEDS: NYSTATIN CREAM 15 GM TOP SCH ×2 (11:21→21:10)
[2019-08-16] MEDS ORDERED: oxyBUTYnin 5 MG TAB PO ONE (13:30)
[2019-08-16 14:00] VITALS: BP 133/84
[2019-08-16] MEDS: ERTAPENEM SODIUM 1 GM in NS MINI-BAG PLUS 50 ML IV SCH (15:07)
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
--- NOTE | 2019-08-16 16:22 | IPNPDOC ---
Subjective General Date/Time Seen The patient was seen on 08/16/19 at 16:19. Subject Chief Complaint/History The patient is a 58-year-old female admitted with a reason for visit of Wound Of Sacral Region. Dressing change today. present of the visit. No new complains Current Medications Current Medications Current Medications Medications (Trade) Dose Ordered Sig/Kelli Route PRN Reason Start Time Stop Time Status Last Admin Dose Admin Acetaminophen (Tylenol Tab) 650 mg Q6HP PRN PO PAIN / FEVER / HEADACHE 08/16/19 03:30 08/16/19 06:48 Alendronate Sodium (Fosamax) 70 mg Tu@0600 PO 08/01/19 06:00 08/15/19 06:20 Apixaban (Eliquis) 2.5 mg BID PO 07/31/19 21:00 08/16/19 11:19 Ascorbic Acid (Vitamin C) 500 mg BID PO 08/03/19 09:00 08/16/19 11:20 Baclofen (Lioresal) 40 mg 0100,0700,1300,1900 PO 08/01/19 13:00 08/16/19 13:28 Baclofen (Lioresal) 40 mg QID PO 07/31/19 17:00 08/01/19 13:41 DC 08/01/19 09:00 Calcium/Vitamin D (Oscal D) 500 mg TID PO 07/31/19 21:00 08/16/19 11:18 Ceftriaxone Sodium 2 gm/ Dextrose 50 ml @ 100 mls/hr Q24H IV 08/11/19 13:15 08/11/19 13:16 DC Diphenhydramine HCl (Benadryl) 25 mg QHSP PRN PO INSOMNIA 08/12/19 18:45 08/16/19 01:14 Diphenhydramine HCl (Benadryl) 25 mg QHSP PRN PO INSOMNIA 08/06/19 11:45 08/11/19 13:14 DC 08/11/19 01:19 Diphenhydramine HCl (Benadryl) 50 mg STAT STAT IV 07/31/19 14:19 07/31/19 14:20 DC 07/31/19 15:14 Diphenoxylate HCl/ Atropine (Lomotil 2.5mg/ 0.025mg) 1 ea TID PO 08/11/19 21:00 08/13/19 06:49 DC 08/12/19 20:26 Enoxaparin Sodium (Lovenox) 40 mg DAILY@2100 SC 07/31/19 21:00 07/31/19 17:09 DC Ertapenem 1 gm/ Sodium Chloride 50 ml @ 100 mls/hr Q24H IV 08/11/19 15:00 08/16/19 15:07 Heparin Sodium (Heparin (Flush)) 100 units ASDIRECTED PRN IV SEE LABEL COMMENTS 08/03/19 17:00 08/03/19 19:19 DC Heparin Sodium (Heparin (Flush)) 100 units BID@0600,1800 IV 08/03/19 18:00 08/03/19 19:19 DC 08/03/19 18:55 Home Med (Med Rec Complete!) ASDIRECTED XX 07/31/19 13:45 07/31/19 13:59 DC Loperamide HCl (Imodium) 2 mg ASDIRECTED PRN PO DIARRHEA 08/09/19 16:00 08/11/19 13:14 DC 08/11/19 01:19 Magnesium Hydroxide (Milk Of Magnesia) 30 ml DAILYPRN PRN PO CONSTIPATION 08/03/19 09:00 08/11/19 13:14 DC 08/06/19 08:49 Menthol/Methyl Salicylate (Bengay Cream) apply to neck for pain BID TOP 08/03/19 09:00 08/13/19 22:09 Metoprolol Succinate (TopROL XL) 25 mg DAILY PO 08/01/19 09:00 08/16/19 11:18 Metronidazole (Flagyl) 500 mg Q6H PO 08/11/19 13:15 08/11/19 13:16 DC Miscellaneous (Unresolved Clarification Entry) SEE LABEL COMMENTS DAILY XX 08/13/19 09:00 08/14/19 22:15 DC Miscellaneous (Unresolved Patient Own Med Order) SEE LABEL COMMENTS DAILY XX 07/31/19 09:00 07/31/19 18:25 DC Miscellaneous (Unresolved Patient Own Med Order) SEE LABEL COMMENTS DAILY XX 08/07/19 09:00 08/08/19 23:02 DC Multivitamins (Theragram-M) 1 tab QHS PO 07/31/19 21:00 08/15/19 20:49 Nystatin (Mycostatin) APPLY TO rash in ri... BID TOP 08/15/19 21:00 08/25/19 20:59 08/16/19 11:21 Oxybutynin Chloride (Ditropan Xl) 25 mg DAILY PO 08/10/19 09:00 08/10/19 16:11 DC 08/10/19 10:54 Oxybutynin Chloride (Ditropan Xl) 25 mg DAILY PO 08/09/19 14:00 Cancel Oxybutynin Chloride (Ditropan) 2.5 mg BID PO 08/11/19 21:00 08/11/19 13:54 DC Oxybutynin Chloride (Ditropan) 10 mg BID PO 07/31/19 21:00 08/09/19 13:02 DC 08/09/19 09:50 Oxybutynin Chloride (Ditropan) 10 mg BID PO 08/11/19 09:00 08/11/19 13:54 DC 08/11/19 09:23 Oxybutynin Chloride (Ditropan) 12.5 mg BID PO 08/11/19 21:00 08/16/19 13:27 DC 08/16/19 11:15 Oxybutynin Chloride (Ditropan) 15 mg BID PO 08/16/19 21:00 Oxymetazoline HCl (Afrin) 2 spray BID PRN NA CONGESTION 08/08/19 02:30 08/11/19 02:30 DC 08/08/19 20:05 Patient Own Medication (Patient'S Own Med) 1 TAB DAILY PO 08/09/19 09:00 08/16/19 11:19 Patient Own Medication (Patient'S Own Med) Lysine 1000mg daily DAILY PO 08/01/19 09:00 07/31/19 18:24 DC Piperacillin Sod/ Tazobactam Sod 3.375 gm/Dextrose 50 ml @ 50 mls/hr Q6H IV 07/31/19 20:00 08/11/19 13:40 DC 08/11/19 08:00 Senna/Docusate Sodium (Senokot S) 1 tab BID PO 08/03/19 09:00 08/11/19 10:16 DC 08/10/19 09:51 Sodium Chloride 1,000 ml @ 70 mls/hr [id number] IV 08/01/19 12:15 08/01/19 16:29 DC 08/01/19 12:39 Sodium Chloride 1,000 ml @ 100 mls/hr Q10H IV 07/31/19 18:30 08/01/19 04:29 DC Sodium Chloride 1,000 ml @ 150 mls/hr Q6H40M IV 07/31/19 13:08 07/31/19 18:20 DC 07/31/19 14:10 Sodium Chloride (Saline Lock Flush) 10 ml ASDIRECTED PRN IV SEE LABEL COMMENTS 08/03/19 17:00 08/11/19 22:12 Sodium Chloride (Saline Lock Flush) 10 ml BID@0600,1800 IV 08/03/19 18:00 08/16/19 06:48 Tizanidine HCl (Zanaflex) 8 mg TID PO 07/31/19 21:00 08/01/19 13:41 DC 08/01/19 09:01 Tizanidine HCl (Zanaflex) 8 mg TID@0700,1500,2300 PO 08/01/19 15:00 08/16/19 15:06 Vitamin D (Vitamin D) 2,000 units DAILY PO 08/01/19 09:00 07/31/19 17:07 DC Zinc Sulfate (Zinc Sulfate) 220 mg DAILY PO 08/03/19 09:00 08/16/19 11:17 Allergies Coded Allergies: ciprofloxacin (Verified Allergy, Severe, mouth sores, 07/31/19) heparin (Verified Allergy, Severe, rash, hives, loss of voice , 08/03/19) Pt reports she had a DVT blood clot in her leg in 1994 and was put on a heparin drip. Pt states once on the heparin drug she developed a full body rash/hives and loss of voice. then determined she had a reaction Contrast Media (Unverified Allergy, Intermediate, IVP DYE - RASH, 04/27/16) oxycodone (Verified Allergy, Intermediate, 07/31/19) zolpidem (Verified Adverse Reaction, Intermediate, anxious, 07/31/19) tramadol (Verified Adverse Reaction, Unknown, dizzy, 07/31/19) Objective Physical Examination Examination GENERAL APPEARANCE:Patient seen, laying in bed, awake, alert, and oriented. Comfortable, in no acute distress. SKIN: Warm and moist. Right ischium wound [id number], undermining 3cm. Clean granul ating tissue, serous drainage mild, no odor, no necrosis. LUNGS: Clear to auscultation bilaterally. No wheezing appreciated. HEART: No chest wall abnormalities. Regular rate and rhythm with no murmurs appreciated. Vital Signs Vital Signs Date Time Temp Pulse Resp B/P (MAP) Pulse Ox O2 Delivery O2 Flow Rate FiO2 08/16/19 14:00 97.9 82 20 133/84 (100) 99 I&Os I&O- Last 24 Hours up to 6 AM 08/16/19 06:00 Intake Total 1840 ml Output Total 2701 ml Balance -861 ml Impression Right ischial wound Dressing changed Improving Size smaller, granulating tissue growing well continue with Endofoam/Wound vac Off loading Nutrition D/c planning this week Patient will be following with wound care center after discharge Wound vac teaching today with for trouble shooting when patient goes home. Next change wednesday Plan / VTE VTE Prophylaxis Ordered?: Yes PEGGY MEIER DO Aug 16, 2019 16:22
[2019-08-16] MEDS: MULTIVITAMINS/MINERALS THERAP 1 TAB PO SCH (21:10)
[2019-08-16 22:00] VITALS: BP 122/58
[2019-08-17] MEDS: BACLOFEN 10 MG TAB PO SCH ×4 (01:14→18:50)
[2019-08-17] MEDS: diphenhydrAMINE 25 MG CAP PO PRN (01:17)
[2019-08-17 06:00] VITALS: BP 138/70
[2019-08-17] MEDS: SODIUM CHLORIDE 0.9% INJ 10 ML SYR IV SCH ×2 (06:46→17:35)
[2019-08-17] MEDS: tiZANidine 4 MG TAB PO SCH ×3 (06:47→23:07)
[2019-08-17] MEDS: LYSINE 1000 MG PO SCH (09:00)
[2019-08-17] MEDS: ANALGESIC BALM CRM 120 GM TOP SCH ×2 (09:00→21:00)
[2019-08-17] MEDS: ZINC SULFATE 220 MG CAP PO SCH (10:48)
[2019-08-17] MEDS: CALCIUM/VITAMIN D 500 MG TAB PO SCH ×3 (10:48→21:01)
[2019-08-17] MEDS: oxyBUTYnin 5 MG TAB PO SCH ×2 (10:48→21:01)
[2019-08-17] MEDS: ASCORBIC ACID 500 MG TAB PO SCH ×2 (10:48→21:01)
[2019-08-17] MEDS: APIXABAN 2.5 MG TAB (ELIQUIS) PO SCH ×2 (10:48→21:01)
[2019-08-17] MEDS: METOPROLOL SUCC *XL* 25MG TAB (TopROL *XL*) PO SCH (10:50)
[2019-08-17] MEDS: NYSTATIN CREAM 15 GM TOP SCH ×2 (10:53→21:02)
[2019-08-17 14:00] VITALS: BP 121/83
[2019-08-17] MEDS: ERTAPENEM SODIUM 1 GM in NS MINI-BAG PLUS 50 ML IV SCH (15:44)
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
[2019-08-17] MEDS: DOCUSATE SODIUM 100 MG CAP PO SCH (21:01)
[2019-08-17] MEDS: MULTIVITAMINS/MINERALS THERAP 1 TAB PO SCH (21:01)
[2019-08-17 22:00] VITALS: BP 119/73
[2019-08-17] MEDS: ACETAMINOPHEN TAB 650MG DOSE (2X325MG) PO PRN (23:57)
[2019-08-18] MEDS: diphenhydrAMINE 25 MG CAP PO PRN (01:09)
[2019-08-18] MEDS: BACLOFEN 10 MG TAB PO SCH ×3 (01:09→13:53)
[2019-08-18 05:47] LABS: HEMATOCRIT 35.4 % (36.0-47.0); HEMOGLOBIN 11.3 g/dl (12.0-15.5); MEAN CORPUSCULAR HEMOGLOBIN 30.1 pg (27.0-33.0); MEAN CORPUSCULAR HGB CONC 31.9 g/dl (32.0-36.5); MEAN CORPUSCULAR VOLUME 94.4 fl (80.0-96.0); PLATELET COUNT, AUTOMATED 451 10^3/uL (150-450); RED BLOOD COUNT 3.75 10^6/uL (4.00-5.40); WHITE BLOOD COUNT 5.8 10^3/uL (4.0-10.0)
[2019-08-18 06:00] VITALS: BP 129/67
[2019-08-18] MEDS: SODIUM CHLORIDE 0.9% INJ 10 ML SYR IV SCH ×2 (06:45→17:25)
[2019-08-18] MEDS: tiZANidine 4 MG TAB PO SCH ×2 (06:46→15:00)
--- NOTE | 2019-08-18 08:54 | IPNPDOC ---
Subjective General Date/Time Seen The patient was seen on 08/18/19 at 08:48. Subject Chief Complaint/History The patient is a 58-year-old female admitted with a reason for visit of Wound Of Sacral Region. Patient is getting ready for discharge. No new complains. Wound vac is working well. Current Medications Current Medications Current Medications Medications (Trade) Dose Ordered Sig/Kelli Route PRN Reason Start Time Stop Time Status Last Admin Dose Admin Acetaminophen (Tylenol Tab) 650 mg Q6HP PRN PO PAIN / FEVER / HEADACHE 08/16/19 03:30 08/17/19 23:57 Alendronate Sodium (Fosamax) 70 mg Tu@0600 PO 08/01/19 06:00 08/15/19 06:20 Apixaban (Eliquis) 2.5 mg BID PO 07/31/19 21:00 08/17/19 21:01 Ascorbic Acid (Vitamin C) 500 mg BID PO 08/03/19 09:00 08/17/19 21:01 Baclofen (Lioresal) 40 mg 0100,0700,1300,1900 PO 08/01/19 13:00 08/18/19 06:46 Baclofen (Lioresal) 40 mg QID PO 07/31/19 17:00 08/01/19 13:41 DC 08/01/19 09:00 Calcium/Vitamin D (Oscal D) 500 mg TID PO 07/31/19 21:00 08/17/19 21:01 Ceftriaxone Sodium 2 gm/ Dextrose 50 ml @ 100 mls/hr Q24H IV 08/11/19 13:15 08/11/19 13:16 DC Diphenhydramine HCl (Benadryl) 25 mg QHSP PRN PO INSOMNIA 08/12/19 18:45 08/18/19 01:09 Diphenhydramine HCl (Benadryl) 25 mg QHSP PRN PO INSOMNIA 08/06/19 11:45 08/11/19 13:14 DC 08/11/19 01:19 Diphenhydramine HCl (Benadryl) 50 mg STAT STAT IV 07/31/19 14:19 07/31/19 14:20 DC 07/31/19 15:14 Diphenoxylate HCl/ Atropine (Lomotil 2.5mg/ 0.025mg) 1 ea TID PO 08/11/19 21:00 08/13/19 06:49 DC 08/12/19 20:26 Docusate Sodium (Colace) 100 mg BID PO 08/17/19 21:00 08/17/19 21:01 Enoxaparin Sodium (Lovenox) 40 mg DAILY@2100 SC 07/31/19 21:00 07/31/19 17:09 DC Ertapenem 1 gm/ Sodium Chloride 50 ml @ 100 mls/hr Q24H IV 08/11/19 15:00 08/17/19 15:44 Heparin Sodium (Heparin (Flush)) 100 units ASDIRECTED PRN IV SEE LABEL COMMENTS 08/03/19 17:00 08/03/19 19:19 DC Heparin Sodium (Heparin (Flush)) 100 units BID@0600,1800 IV 08/03/19 18:00 08/03/19 19:19 DC 08/03/19 18:55 Home Med (Med Rec Complete!) ASDIRECTED XX 07/31/19 13:45 07/31/19 13:59 DC Loperamide HCl (Imodium) 2 mg ASDIRECTED PRN PO DIARRHEA 08/09/19 16:00 08/11/19 13:14 DC 08/11/19 01:19 Magnesium Hydroxide (Milk Of Magnesia) 30 ml DAILYPRN PRN PO CONSTIPATION 08/03/19 09:00 08/11/19 13:14 DC 08/06/19 08:49 Menthol/Methyl Salicylate (Bengay Cream) apply to neck for pain BID TOP 08/03/19 09:00 08/13/19 22:09 Metoprolol Succinate (TopROL XL) 25 mg DAILY PO 08/01/19 09:00 08/17/19 10:50 Metronidazole (Flagyl) 500 mg Q6H PO 08/11/19 13:15 08/11/19 13:16 DC Miscellaneous (Unresolved Clarification Entry) SEE LABEL COMMENTS DAILY XX 08/13/19 09:00 08/14/19 22:15 DC Miscellaneous (Unresolved Patient Own Med Order) SEE LABEL COMMENTS DAILY XX 07/31/19 09:00 07/31/19 18:25 DC Miscellaneous (Unresolved Patient Own Med Order) SEE LABEL COMMENTS DAILY XX 08/07/19 09:00 08/08/19 23:02 DC Multivitamins (Theragram-M) 1 tab QHS PO 07/31/19 21:00 08/17/19 21:01 Nystatin (Mycostatin) APPLY TO rash in ri... BID TOP 08/15/19 21:00 08/25/19 20:59 08/17/19 21:02 Oxybutynin Chloride (Ditropan Xl) 25 mg DAILY PO 08/10/19 09:00 08/10/19 16:11 DC 08/10/19 10:54 Oxybutynin Chloride (Ditropan Xl) 25 mg DAILY PO 08/09/19 14:00 Cancel Oxybutynin Chloride (Ditropan) 2.5 mg BID PO 08/11/19 21:00 08/11/19 13:54 DC Oxybutynin Chloride (Ditropan) 10 mg BID PO 07/31/19 21:00 08/09/19 13:02 DC 08/09/19 09:50 Oxybutynin Chloride (Ditropan) 10 mg BID PO 08/11/19 09:00 08/11/19 13:54 DC 08/11/19 09:23 Oxybutynin Chloride (Ditropan) 12.5 mg BID PO 08/11/19 21:00 08/16/19 13:27 DC 08/16/19 11:15 Oxybutynin Chloride (Ditropan) 15 mg BID PO 08/16/19 21:00 08/17/19 21:01 Oxymetazoline HCl (Afrin) 2 spray BID PRN NA CONGESTION 08/08/19 02:30 08/11/19 02:30 DC 08/08/19 20:05 Patient Own Medication (Patient'S Own Med) 1 TAB DAILY PO 08/09/19 09:00 08/17/19 09:00 Patient Own Medication (Patient'S Own Med) Lysine 1000mg daily DAILY PO 08/01/19 09:00 07/31/19 18:24 DC Piperacillin Sod/ Tazobactam Sod 3.375 gm/Dextrose 50 ml @ 50 mls/hr Q6H IV 07/31/19 20:00 08/11/19 13:40 DC 08/11/19 08:00 Senna/Docusate Sodium (Senokot S) 1 tab BID PO 08/03/19 09:00 08/11/19 10:16 DC 08/10/19 09:51 Sodium Chloride 1,000 ml @ 70 mls/hr [id number] IV 08/01/19 12:15 08/01/19 16:29 DC 08/01/19 12:39 Sodium Chloride 1,000 ml @ 100 mls/hr Q10H IV 07/31/19 18:30 08/01/19 04:29 DC Sodium Chloride 1,000 ml @ 150 mls/hr Q6H40M IV 07/31/19 13:08 07/31/19 18:20 DC 07/31/19 14:10 Sodium Chloride (Saline Lock Flush) 10 ml ASDIRECTED PRN IV SEE LABEL COMMENTS 08/03/19 17:00 08/11/19 22:12 Sodium Chloride (Saline Lock Flush) 10 ml BID@0600,1800 IV 08/03/19 18:00 08/18/19 06:45 Tizanidine HCl (Zanaflex) 8 mg TID PO 07/31/19 21:00 08/01/19 13:41 DC 08/01/19 09:01 Tizanidine HCl (Zanaflex) 8 mg TID@0700,1500,2300 PO 08/01/19 15:00 08/18/19 06:46 Vitamin D (Vitamin D) 2,000 units DAILY PO 08/01/19 09:00 07/31/19 17:07 DC Zinc Sulfate (Zinc Sulfate) 220 mg DAILY PO 08/03/19 09:00 08/17/19 10:48 Allergies Coded Allergies: ciprofloxacin (Verified Allergy, Severe, mouth sores, 07/31/19) heparin (Verified Allergy, Severe, rash, hives, loss of voice , 08/03/19) Pt reports she had a DVT blood clot in her leg in 1994 and was put on a heparin drip. Pt states once on the heparin drug she developed a full body rash/hives and loss of voice. then determined she had a reaction Contrast Media (Unverified Allergy, Intermediate, IVP DYE - RASH, 04/27/16) oxycodone (Verified Allergy, Intermediate, 07/31/19) zolpidem (Verified Adverse Reaction, Intermediate, anxious, 07/31/19) tramadol (Verified Adverse Reaction, Unknown, dizzy, 07/31/19) Objective Physical Examination Examination GENERAL APPEARANCE:Patient seen, laying in bed, awake, alert, and oriented. Comfortable, in no acute distress. SKIN: Warm and moist. Right ischium stage 4 wound. [id number], undermining 3 cm at 12 o'clock. Clean granulating tissue, minimal serous drainage, no odor. No necrosis. LUNGS: Clear to auscultation bilaterally. No wheezing appreciated. HEART: No chest wall abnormalities. Regular rate and rhythm with no murmurs appr eciated. ABDOMEN: Abdomen is soft NT/ND Vital Signs Vital Signs Date Time Temp Pulse Resp B/P (MAP) Pulse Ox O2 Delivery O2 Flow Rate FiO2 08/18/19 06:00 98.1 69 18 129/67 (87) 97 Room Air I&Os I&O- Last 24 Hours up to 6 AM 08/18/19 06:00 Intake Total 2210 ml Output Total 2650 ml Balance -440 ml Laboratory Data Labs 24H Laboratory Tests 2 08/18/19 05:25: Nucleated Red Blood Cells % (auto) 0.0, C-Reactive Protein, Quantitative 3.48H CBC/BMP Laboratory Tests 08/18/19 05:25 Impression Right ischial stage 4 wound Acute osteomyelitis Wound vac changed, wound improving steadily Continue with Endofoam, wound vac. Continue with off loading. Patient is set up for discharge today. She will follow up with Wound care on Wednesday for dressing changes and further wound care. Troubleshooting instructions for dressing changes given to patient and ex . Plan / VTE VTE Prophylaxis Ordered?: Yes PEGGY MEIER DO Aug 18, 2019 08:54
[2019-08-18] MEDS: DOCUSATE SODIUM 100 MG CAP PO SCH (09:00)
[2019-08-18] MEDS: ANALGESIC BALM CRM 120 GM TOP SCH (09:00)
[2019-08-18] MEDS: oxyBUTYnin 5 MG TAB PO SCH (09:41)
[2019-08-18 09:42] VITALS: BP 1/67
[2019-08-18] MEDS: CALCIUM/VITAMIN D 500 MG TAB PO SCH ×2 (09:42→15:00)
[2019-08-18] MEDS: APIXABAN 2.5 MG TAB (ELIQUIS) PO SCH (09:42)
[2019-08-18] MEDS: ASCORBIC ACID 500 MG TAB PO SCH (09:42)
[2019-08-18] MEDS: METOPROLOL SUCC *XL* 25MG TAB (TopROL *XL*) PO SCH (09:42)
[2019-08-18] MEDS: ZINC SULFATE 220 MG CAP PO SCH (09:42)
[2019-08-18] MEDS: LYSINE 1000 MG PO SCH (09:43)
[2019-08-18] MEDS: NYSTATIN CREAM 15 GM TOP SCH (09:44)
[2019-08-18] MEDS ORDERED: OXYB5TAB10 PO (10:33)
[2019-08-18 14:00] VITALS: BP 152/86
[2019-08-18] MEDS: ERTAPENEM SODIUM 1 GM in NS MINI-BAG PLUS 50 ML IV SCH (15:00)
--- NOTE | 2019-08-18 15:02 | IPN ---
DATE: 08/18/2019 Radha is excited to be going home. She had low grade fever last night with temperature of 100.1, but has no complaints. No nausea, vomiting, or diarrhea. She is actually constipated but does not want to take any laxatives until she makes it home. She will be following up in up with Dr. Mitchell and has an appointment on Wednesday for change of her wound VAC. She will be going home with [facility] [place] to change her wound VAC Wednesday, Wednesday, Wednesday. LABS: White count 5.8, hemoglobin 11.3, hematocrit 35.4, platelets 451. Sodium 141, potassium 4.2, chloride 107, bicarb 30, CRP 3.48. Dr. Garrison did her dressing change and wound VAC this morning, but I was not available and therefore could not see the ulcer. Per her description, the right ischium stage IV ulcer measured 3 x 2 x 2 cm with only 3 cm undermining and clean granulation tissue, minimal serous drainage. No odor, no necrosis. IMPRESSION: Right ischial stage IV decubitus ulcer with acute osteomyelitis, culture positive for polymicrobial cyn with anaerobes. The patient has been on intravenous (IV) antibiotics for the past 18 days. She will be switched to by mouth Augmentin at home to finish a 3-week course. PLAN: Continue Augmentin 875 mg by mouth twice a day for 3 weeks. Monitor CBC, CRP, sedimentation rate. Followup with Dr. Mitchell as an outpatient. The patient cannot do two visits with Dr. Mitchell and myself as it is very hard for her to get out of the car onto a bed in the office. I will ask Dr. Mitchell to take pictures so I can follow the progress of her wound and decide on her antibiotics. She will have labs done weekly through [facility] [place].
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
== END 2019-08-18 17:33 | disposition home health service (06) | DRG 710 ==
LOC: M ED 12:42 → M ED INP 16:13 → M MSPAV 18:10
PROVIDERS: ADMIT Internal Medicine; ATTEND General Practice
PROC: 0QB10ZX Excision of Sacrum, Open Approach, Diagnostic (ICD-10-PCS; 2019-08-01)
PROC: 0JD70ZZ Extraction of Back Subcutaneous Tissue and Fascia, Open Approach (ICD-10-PCS; principal; 2019-08-01 13:30)
PROC: 05H933Z Insertion of Infusion Device into Right Brachial Vein, Percutaneous Approach (ICD-10-PCS; 2019-08-03)
DX: A41.9 Sepsis, unspecified organism (principal); L89.154 Pressure ulcer of sacral region, stage 4; E46 Unspecified protein-calorie malnutrition; G82.20 Paraplegia, unspecified; K52.1 Toxic gastroenteritis and colitis; Z93.6 Other artificial openings of urinary tract status; M86.18 Other acute osteomyelitis, other site; N13.30 Unspecified hydronephrosis; L97.329 Non-pressure chronic ulcer of left ankle with unspecified severity; L97.319 Non-pressure chronic ulcer of right ankle with unspecified severity; I10 Essential (primary) hypertension; B95.8 Unspecified staphylococcus as the cause of diseases classified elsewhere; Z79.899 Other long term (current) drug therapy; Z88.1 Allergy status to other antibiotic agents; Z88.5 Allergy status to narcotic agent; Z88.8 Allergy status to other drugs, medicaments and biological substances; Z91.041 Radiographic dye allergy status; Z86.718 Personal history of other venous thrombosis and embolism; R61 Generalized hyperhidrosis; T36.0X5A Adverse effect of penicillins, initial encounter; B96.20 Unspecified Escherichia coli [E. coli] as the cause of diseases classified elsewhere; N32.81 Overactive bladder; K59.00 Constipation, unspecified; B96.89 Other specified bacterial agents as the cause of diseases classified elsewhere

== ENCOUNTER → 2019-08-25 | Outpatient (REF) | payer OTHER ==
[~2019-08-25] MED LIST changes: +ALEN70TA74 PO; +ASCO50TA PO; +AUGM875T28 PO; +BACL1TAB9 PO; +CALCD50TA PO; +CVS1CAP2 PO; +DELUMIS2 XX; +DIPH25CA32 PO; +ELIQ2.5T PO; +METO1TAB32 PO; +MUSCCRE9 TOP; +NYST10CR TOP; +OXYB5TAB10 PO; +TIZA4TAB4 PO; +VITMTA PO; +ZINC220CA PO
== END ==
LOC: M LAB REF 16:21
PROVIDERS: ATTEND Physician Assistant
DX: L89.313 Pressure ulcer of right buttock, stage 3 (principal)

== ENCOUNTER → 2019-09-07 | Outpatient (CLI) | payer OTHER ==
[~2019-09-07] MED LIST changes: +ISOVUE-300 61% 50ML VIAL (Q9967) As Ordered ONE; +LIDOCAINE 1% MDV 20ML VIAL As Ordered ONE; +diphenhydrAMINE INJ 50MG/ML VIAL (J1200) As Ordered ONE
[2019-09-07 12:55] VITALS: BP 142/82
--- NOTE | 2019-09-07 15:27 | REP ---
IR Conduit Stent ExchangeIR Ileal conduit stent exchange with fluoroscopic guidance Clinical Information: ureteral conduit with stricture. Physician: Dr. HernándezeProcedure: The patient was advised of the benefits, risks, and alternatives of the procedure and informed consent was obtained.A time out was performed with verification of the patient's name, MRN, site of procedure, and type of procedure to be performed. The patient was positioned in the supine position on the angiographic table. The site was prepped and draped in the usual sterile fashion.Moderate sedation was not required. The physician spent 45 minutes of continuous [id number] time with the patient.A insulation cutter radiograph reveals and ureteral stent in place. A nephrostogram was performed through the existing catheter and show mild hydronephrosis. A wire was advanced through the exposed portion of the previously placed stent and into the left renal pelvis. The stent was subsequently exchanged for a new 10 Swedish cook ureteral stent. Positioning was confirmed with contrast injection. A new ostomy bag was placed over the ostomy.The patient tolerated the procedure well and was returned to the PRU in stable condition.EBL: < 5 mlComplications: None.Conclusion:Successful conduit stent exchange. The patient should return in 8-12 weeks for routine exchange. Thank you for this referral. Electronically Signed by Angelika Garcia MD 09/07/2019 03:26 P
== END ==
LOC: M IRPRO 11:25
PROVIDERS: ATTEND Radiology Diagnostic Radiology
DX: N13.30 Unspecified hydronephrosis (principal); N35.92 Unspecified urethral stricture, female
CPT/HCPCS: 50688; C1729; C1769; Q9967

== ENCOUNTER → 2019-11-15 | Outpatient (CLI) | payer OTHER ==
[~2019-11-15] MED LIST changes: +GLUC1TAB58 PO; +LEVO500T3 PO; -OXYB10TA2 PO; +OXYB10TA23 PO; +SUPETAB56 PO; -diphenhydrAMINE INJ 50MG/ML VIAL (J1200) As Ordered ONE
[2019-11-15 18:15] VITALS: BP 124/72
--- NOTE | 2019-11-17 09:56 | REP ---
IR conduit stent exchange. IR conduit stent replacement. Ileoconduit stent exchange with fluoroscopy guidance. Clinical information: Ileal conduit with ureteral stricture. Status post cystectomy. Physician: Dr. Garcia. Procedure: The patient was advised of the benefits, risks and alternatives of the procedure and informed consent was obtained. The time-out was performed with verification of the patient's name, MRN, site of procedure and type of procedure to be performed. The patient was positioned in the supine position on the angiographic table. The site was prepped and draped in the usual sterile fashion. The physician spent 45 minutes of continuous face to face time with the patient. The stent was inadvertently pulled out during the patient's prep. A band director radiograph reveals a left nephroureteral ileoconduit stent retracted back into the ileal conduit. A wire was advanced through the stent into the conduit and the catheter was removed over the wire. A kumpe catheter was advanced over the wire. The catheter in conjunction with the wire was used to recatheterize the conduit ureteral anastomosis, under fluoroscopy guidance. The catheter was advanced over the wire into the left renal collecting system. A nephrostogram was performed which demonstrates hydronephrosis. The catheter was removed over the wire. A new 8.5 [place] multipurpose catheter was advanced over the wire and positioned in the renal collecting system. The wire was removed. A final nephrostogram confirms appropriate location within the ureter and renal collecting system. The patient tolerated the procedure well and was returned to PRU in stable condition. EBL: Less than 5 ml. Complications: None. Impression: Successful conduit stent replacement and exchange. The patient should return in 12 weeks for routine exchange. Thank you this referral. Electronically Signed by Angelika Garcia MD 11/17/2019 09:55 A
== END ==
LOC: M IRPRO 13:53
PROVIDERS: ATTEND Radiology Diagnostic Radiology
DX: N13.5 Crossing vessel and stricture of ureter without hydronephrosis (principal); G82.20 Paraplegia, unspecified; Z88.1 Allergy status to other antibiotic agents; Z88.5 Allergy status to narcotic agent; Z88.8 Allergy status to other drugs, medicaments and biological substances; Z85.51 Personal history of malignant neoplasm of bladder; Z90.6 Acquired absence of other parts of urinary tract; Z86.711 Personal history of pulmonary embolism; Z90.710 Acquired absence of both cervix and uterus
CPT/HCPCS: 50688; 75984; 99152; 99153; C1729; C1769; C1887; Q9967

== ENCOUNTER → 2019-11-17 | Outpatient (REF) | payer OTHER ==
[~2019-11-17] MED LIST changes: -ISOVUE-300 61% 50ML VIAL (Q9967) As Ordered ONE; -LIDOCAINE 1% MDV 20ML VIAL As Ordered ONE
== END ==
LOC: M SFHCPLAZ 17:30
PROVIDERS: ATTEND Physician Assistant
DX: L89.314 Pressure ulcer of right buttock, stage 4 (principal)

== ENCOUNTER → 2020-01-12 | Outpatient (CLI) | payer OTHER ==
[~2020-01-12] MED LIST changes: +ISOVUE-300 61% 50ML VIAL (Q9967) As Ordered ONE; +LIDOCAINE 1% MDV 20ML VIAL As Ordered ONE
[2020-01-12 11:10] VITALS: BP 133/67
--- NOTE | 2020-01-12 15:33 | REP ---
IR conduit stent exchange. Ileoconduit stent exchange with fluoroscopy guidance. Clinical information: Ileal conduit. Ureteral stricture. Physician: Dr. Garcia. Procedure: The patient was advised of the benefits, risks and alternatives of the procedure and informed consent was obtained. The time-out was performed with verification of the patient's name, MRN, site of procedure and type of procedure to be performed. The patient was positioned in the supine position on the angiographic table. The site was prepped and draped in the usual sterile fashion. Moderate sedation was not performed. The physician spent 45 minutes of continuous face to face time with the patient. A nurse technician radiograph reveals a left nephroureteral stent in place. A nephrostogram was performed through the existing ileoconduit stent and this demonstrates appropriate positioning in the renal pelvis. There is moderate hydronephrosis. A wire was advanced through the stent into the renal collecting system and the catheter was removed over the wire. A new 8.5 [place] multipurpose catheter was advanced over the wire and positioned in the renal collecting system. The wire was removed. A final nephrostogram confirms appropriate location within the ureter and renal collecting system. The patient tolerated the procedure well and was returned to PRU in stable condition. EBL: Less than 5 ml. Complications: None. Impression: Successful conduit stent exchange. The patient should return in 12 weeks for routine exchange. Thank you this referral. Electronically Signed by Angelika Garcia MD 01/12/2020 03:31 P
== END ==
LOC: M IRPRO 09:34
PROVIDERS: ATTEND Radiology Diagnostic Radiology
DX: N13.0 Hydronephrosis with ureteropelvic junction obstruction (principal)
CPT/HCPCS: 50688; 75984; C1729; C1769; Q9967

== ENCOUNTER 2020-02-08 14:30 | Inpatient (IN) | payer OTHER ==
[~2020-02-08] VITALS: Ht 172.7 cm; Wt 62.4 kg
[~2020-02-08 14:30] MED LIST changes: -ISOVUE-300 61% 50ML VIAL (Q9967) As Ordered ONE; -LIDOCAINE 1% MDV 20ML VIAL As Ordered ONE
[2020-02-08 17:12] VITALS: BP 160/80
[2020-02-08] MEDS ORDERED: VITA500C19 PO (18:19)
[2020-02-08] MEDS ORDERED: OXYB5TAB10 PO (18:26)
[2020-02-08] MEDS ORDERED: DIPH25CA32 PO (18:26)
[2020-02-08] MEDS ORDERED: DOXY100C PO (18:30)
[2020-02-08] MEDS ORDERED: DOK100TA PO (18:30)
[2020-02-08] MEDS ORDERED: MICAFUNGIN SODIUM 150 MG in D5W MINI-BAG PLUS 100 ML IV SCH (18:30)
[2020-02-08] MEDS ORDERED: SENN8.6T58 PO (18:30)
[2020-02-08] MEDS ORDERED: MECL1TAB31 PO (18:30)
[2020-02-08] MEDS ORDERED: CALC1TAB8 PO (18:32)
[2020-02-08] MEDS ORDERED: MICAFUNGIN SODIUM 150 MG in D5W 100 ML IV SCH ×2 (18:39→19:00)
[2020-02-08 20:00] VITALS: BP 148/68
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
[2020-02-08] MEDS ORDERED: diphenhydrAMINE 25MG CAP PO PRN (21:00)
[2020-02-08] MEDS ORDERED: VANCOMYCIN HCL 1,000 MG, VIAL MATE ADAPTER 1 EACH in D5W 250 ML IV ONE (21:00)
[2020-02-08] MEDS: CALCIUM/VITAMIN D 500 MG TAB PO SCH (21:43)
[2020-02-08] MEDS: oxyBUTYnin 5 MG TAB PO SCH (21:43)
[2020-02-08] MEDS: BACLOFEN 10 MG TAB PO SCH (21:44)
[2020-02-08] MEDS: SENNA 8.6 MG TAB (SENOKOT) PO SCH (21:44)
[2020-02-08] MEDS: APIXABAN 2.5 MG TAB (ELIQUIS) PO SCH (21:44)
[2020-02-08] MEDS: MULTIVITAMINS/MINERALS THERAP 1 TAB PO SCH (21:44)
[2020-02-08] MEDS: tiZANidine 4 MG TAB PO SCH (21:44)
[2020-02-09] VITALS (7 sets, daily range): BP systolic 107–162; BP diastolic 56–78
[2020-02-09] MEDS ORDERED: MEROPENEM INJ 1 GM in IV 1 EA IV SCH ×2
[2020-02-09 05:23] LABS: HEMATOCRIT 29.8 % (36.0-47.0); HEMOGLOBIN 8.9 g/dl (12.0-15.5); MEAN CORPUSCULAR HEMOGLOBIN 22.1 pg (27.0-33.0); MEAN CORPUSCULAR HGB CONC 29.9 g/dl (32.0-36.5); MEAN CORPUSCULAR VOLUME 74.1 fl (80.0-96.0); PLATELET COUNT, AUTOMATED 500 10^3/uL (150-450); RED BLOOD COUNT 4.02 10^6/uL (4.00-5.40); WHITE BLOOD COUNT 7.7 10^3/uL (4.0-10.0)
[2020-02-09 05:41] LABS: ALBUMIN 1.9 GM/DL (3.2-5.2); ALT/SGPT 31 U/L (12-78); BILIRUBIN,TOTAL 0.3 MG/DL (0.2-1.0); BLOOD UREA NITROGEN 11 MG/DL (7-18); CALCIUM LEVEL 8.4 MG/DL (8.5-10.1); CARBON DIOXIDE LEVEL 31 MEQ/L (21-32); CHLORIDE LEVEL 105 MEQ/L (98-107); CREATININE FOR GFR 0.57 MG/DL (0.55-1.30); GLOMERULAR FILTRATION RATE > 60.0 (>51); GLUCOSE, FASTING 96 MG/DL (70-100); MAGNESIUM LEVEL 1.8 MG/DL (1.8-2.4); POTASSIUM SERUM 3.4 MEQ/L (3.5-5.1); SODIUM LEVEL 142 MEQ/L (136-145); TOTAL PROTEIN 5.8 GM/DL (6.4-8.2)
[2020-02-09 07:36] LABS: FERRITIN 168 NG/ML (8-252); IRON (FE) 14 UG/DL (50-170); PERCENT SATURATION 6.7 % (13.2-45.0); TOTAL IRON BINDING CAPACITY 208 UG/DL (250-450)
[2020-02-09] MEDS ORDERED: DOXYCYCLINE HYCLATE 100MG TABLET PO SCH (09:00)
[2020-02-09] MEDS: CALCIUM/VITAMIN D 500 MG TAB PO SCH ×3 (09:21→21:47)
[2020-02-09] MEDS: BACLOFEN 10 MG TAB PO SCH ×4 (09:21→21:46)
[2020-02-09] MEDS: tiZANidine 4 MG TAB PO SCH ×3 (09:21→21:47)
[2020-02-09] MEDS: METOPROLOL SUCC *XL* 25MG TAB (TopROL *XL*) PO SCH (09:22)
[2020-02-09] MEDS: APIXABAN 2.5 MG TAB (ELIQUIS) PO SCH ×2 (09:22→21:46)
[2020-02-09] MEDS: oxyBUTYnin 5 MG TAB PO SCH ×3 (09:22→21:48)
[2020-02-09] MEDS: MECLIZINE 25 MG TABLET PO SCH (09:23)
[2020-02-09] MEDS ORDERED: fentaNYL 100 MCG/2 ML INJECTION (J3010) As Ordered ONE (09:39)
[2020-02-09] MEDS ORDERED: diphenhydrAMINE 50MG/ML VIAL (J1200) As Ordered ONE (09:39)
[2020-02-09] MEDS ORDERED: LIDOCAINE 1% MDV 20ML VIAL As Ordered ONE (09:40)
[2020-02-09] MEDS ORDERED: ISOVUE-300 61% 50ML VIAL (Q9967) As Ordered ONE (09:40)
[2020-02-09] MEDS ORDERED: MIDAZOLAM INJ 2 MG/2 ML VIAL (J2250) As Ordered ONE (09:40)
--- NOTE | 2020-02-09 10:47 | REP ---
IR conduit stent replacement. IR retrograde ureteral anastomosis catheterization. IR retrograde Ileoconduit stent replacement with fluoroscopy guidance. Clinical information: Ureteral stricture. Bladder cancer status post cystectomy. Physician: Dr. Garcia. Procedure: The patient was advised of the benefits, risks and alternatives of the procedure and informed consent was obtained. The time-out was performed with verification of the patient's name, MRN, site of procedure and type of procedure to be performed. The patient was positioned in the supine position on the angiographic table. The site was prepped and draped in the usual sterile fashion. Moderate sedation was not required. The physician spent 45 minutes of continuous face to face time with the patient. A watch inspector radiograph reveals a left nephroureteral stent retracted back into conduit. The catheter was removed over a wire. A kumpe catheter in conjunction with a Glidewire was used under fluoroscopy guidance to catheterize the ileal conduit and recatheterize the ureteral anastomosis. After successful catheterization of the ureteral anastomosis, the Glidewire in conjunction with the catheter was used under fluoroscopy guidance, to catheterize the upper pole of the left kidney. The wire was removed. A nephrostogram was performed through the catheter which demonstrates severe hydronephrosis and hydroureter. An Amplatz wire was advanced through the catheter into the renal collecting system. The catheter was removed over the wire. A new 8.5 [place]ian multipurpose catheter was advanced over the wire and positioned in the renal collecting system. The wire was removed. A final nephrostogram confirms appropriate location within the ureter and renal collecting system. The patient tolerated the procedure well and was returned to PRU in stable condition. EBL: Less than 5 ml. Complications: None. Impression: 1. Catheter check demonstrates it was pulled out of the ureter back into the conduit with severe hydronephrosis and hydroureter. 2. Successful retrograde recatheterization of left ureteral anastomosis and catheterization of left renal collecting system. 3. Successful retrograde conduit stent catheter placement. The patient should return in 12 weeks for routine exchange. Or sooner if any problems. Thank you this referral. Electronically Signed by Angelika Garcia MD 02/09/2020 10:45 A
[2020-02-09] MEDS ORDERED: FLUCONAZOLE 100 MG TAB PO ONE (11:00)
[2020-02-09] MEDS ORDERED: SLF 3 ML SYR IV PRN (12:00)
[2020-02-09] MEDS: POTASSIUM CHLORIDE 10 MEQ SR TABLET PO SCH ×2 (12:10→17:44)
[2020-02-09] MEDS: FERROUS SULFATE 325MG TAB PO SCH ×2 (12:10→21:48)
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
[2020-02-09] MEDS: DOXYCYCLINE HYCLATE 100MG TABLET PO SCH ×2 (12:32→17:45)
[2020-02-09] MEDS: SLF 3 ML SYR IV SCH ×2 (13:50→21:49)
[2020-02-09] MEDS: SENNA 8.6 MG TAB (SENOKOT) PO SCH (21:46)
[2020-02-09] MEDS: MULTIVITAMINS/MINERALS THERAP 1 TAB PO SCH (21:46)
[2020-02-10] VITALS: BP 132/81
[2020-02-10 04:00] VITALS: BP 126/68
[2020-02-10] MEDS: DOXYCYCLINE HYCLATE 100MG TABLET PO SCH (05:23)
[2020-02-10] MEDS: SLF 3 ML SYR IV SCH (05:25)
[2020-02-10 05:49] LABS: HEMATOCRIT 32.2 % (36.0-47.0); HEMOGLOBIN 9.4 g/dl (12.0-15.5); MEAN CORPUSCULAR HGB CONC 29.2 g/dl (32.0-36.5); MEAN CORPUSCULAR VOLUME 75.2 fl (80.0-96.0); PLATELET COUNT, AUTOMATED 537 10^3/uL (150-450); RED BLOOD COUNT 4.28 10^6/uL (4.00-5.40); WHITE BLOOD COUNT 7.9 10^3/uL (4.0-10.0)
[2020-02-10 06:09] LABS: BLOOD UREA NITROGEN 14 MG/DL (7-18); CALCIUM LEVEL 10.1 MG/DL (8.5-10.1); CARBON DIOXIDE LEVEL 30 MEQ/L (21-32); CHLORIDE LEVEL 106 MEQ/L (98-107); CREATININE FOR GFR 0.54 MG/DL (0.55-1.30); GLOMERULAR FILTRATION RATE > 60.0 (>51); GLUCOSE, FASTING 86 MG/DL (70-100); MAGNESIUM LEVEL 1.7 MG/DL (1.8-2.4); POTASSIUM SERUM 4.1 MEQ/L (3.5-5.1); SODIUM LEVEL 143 MEQ/L (136-145)
[2020-02-10 07:39] VITALS: BP 163/79
[2020-02-10] MEDS: BACLOFEN 10 MG TAB PO SCH (08:57)
[2020-02-10] MEDS: tiZANidine 4 MG TAB PO SCH (08:58)
[2020-02-10] MEDS: METOPROLOL SUCC *XL* 25MG TAB (TopROL *XL*) PO SCH (08:58)
[2020-02-10] MEDS: FERROUS SULFATE 325MG TAB PO SCH (08:58)
[2020-02-10] MEDS: oxyBUTYnin 5 MG TAB PO SCH (08:58)
[2020-02-10] MEDS: APIXABAN 2.5 MG TAB (ELIQUIS) PO SCH (09:00)
[2020-02-10] MEDS: CALCIUM/VITAMIN D 500 MG TAB PO SCH (09:00)
[2020-02-10] MEDS: MECLIZINE 25 MG TABLET PO SCH (09:00)
[2020-02-10] MEDS ORDERED: FLUCONAZOLE 100 MG TAB PO SCH (09:00)
[2020-02-10] MEDS ORDERED: FLUC200T2 PO (10:01)
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
== END 2020-02-10 12:33 | disposition home health service (06) | DRG 443 ==
LOC: UNDOADMIN 15:00 → M PCU 15:00
PROVIDERS: ADMIT Internal Medicine; ATTEND Internal Medicine
PROC: 0T773DZ Dilation of Left Ureter with Intraluminal Device, Percutaneous Approach (ICD-10-PCS; 2020-02-09)
PROC: 0TP93DZ Removal of Intraluminal Device from Ureter, Percutaneous Approach (ICD-10-PCS; principal; 2020-02-09 10:00)
DX: T83.592A Infection and inflammatory reaction due to indwelling ureteral stent, initial encounter (principal); L89.154 Pressure ulcer of sacral region, stage 4; G82.20 Paraplegia, unspecified; M46.28 Osteomyelitis of vertebra, sacral and sacrococcygeal region; Y84.8 Other medical procedures as the cause of abnormal reaction of the patient, or of later complication, without mention of misadventure at the time of the procedure; Z85.51 Personal history of malignant neoplasm of bladder; N13.30 Unspecified hydronephrosis; Z86.711 Personal history of pulmonary embolism; Z91.041 Radiographic dye allergy status; I10 Essential (primary) hypertension; Z93.3 Colostomy status; Z79.01 Long term (current) use of anticoagulants; Z79.899 Other long term (current) drug therapy; Z88.5 Allergy status to narcotic agent; Z88.8 Allergy status to other drugs, medicaments and biological substances; B37.49 Other urogenital candidiasis

== ENCOUNTER → 2020-02-16 | Outpatient (REF) | payer OTHER ==
[~2020-02-16] MED LIST changes: +CALC1TAB8 PO; +DOK100TA PO; +DOXY100C PO; +FLUC200T2 PO; +MECL1TAB31 PO; +SENN8.6T58 PO; +VITA500C19 PO
== END ==
LOC: M LAB REF 16:23
PROVIDERS: ATTEND Physician Assistant
DX: L89.314 Pressure ulcer of right buttock, stage 4 (principal)

== ENCOUNTER 2020-03-25 01:03 | Inpatient (IN) | payer OTHER ==
[~2020-03-25] VITALS: Ht 172.7 cm; Wt 61.4 kg
[2020-03-25 03:18] VITALS: BP 118/56
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
[2020-03-25 04:36] LABS: HEMATOCRIT 25.9 % (36.0-47.0); HEMOGLOBIN 7.6 g/dl (12.0-15.5); MEAN CORPUSCULAR HEMOGLOBIN 21.6 pg (27.0-33.0); MEAN CORPUSCULAR HGB CONC 29.3 g/dl (32.0-36.5); MEAN CORPUSCULAR VOLUME 73.6 fl (80.0-96.0); PLATELET COUNT, AUTOMATED 524 10^3/uL (150-450); RED BLOOD COUNT 3.52 10^6/uL (4.00-5.40); WHITE BLOOD COUNT 20.7 10^3/uL (4.0-10.0)
[2020-03-25 05:08] LABS: ALBUMIN 1.9 GM/DL (3.2-5.2); ALT/SGPT 15 U/L (12-78); BILIRUBIN,TOTAL 0.4 MG/DL (0.2-1.0); BLOOD UREA NITROGEN 21 MG/DL (7-18); CALCIUM LEVEL 8.8 MG/DL (8.5-10.1); CARBON DIOXIDE LEVEL 21 MEQ/L (21-32); CHLORIDE LEVEL 110 MEQ/L (98-107); CREATININE FOR GFR 0.47 MG/DL (0.55-1.30); GLOMERULAR FILTRATION RATE > 60.0 (>51); GLUCOSE, FASTING 84 MG/DL (70-100); POTASSIUM SERUM 3.4 MEQ/L (3.5-5.1); SODIUM LEVEL 141 MEQ/L (136-145); TOTAL PROTEIN 5.7 GM/DL (6.4-8.2)
[2020-03-25] MEDS ORDERED: CLOT10TR PO (05:18)
[2020-03-25 06:00] VITALS: BP 144/66
[2020-03-25] MEDS: CLOTRIMAZOLE 10 MG TROCHE PO SCH ×5 (06:00→20:12)
[2020-03-25] MEDS: PIPERACILLIN/TAZOBACTAM SOD 3.375 GM in D5W MINI-BAG PLUS 50 ML IV SCH ×2 (06:09→12:24)
[2020-03-25] MEDS ORDERED: diphenhydrAMINE 25MG CAP PO PRN (06:15)
[2020-03-25 06:30] LABS: APPEARANCE, URINE HAZY (CLEAR); BILIRUBIN, URINE AUTO NEGATIVE (NEGATIVE); BLOOD, URINE BLOOD 2+ (NEGATIVE); COLOR, URINE YELLOW (YELLOW); GLUCOSE, URINE (UA) AUTO NEGATIVE (NEGATIVE); KETONE, URINE AUTO 1+ mg/dL (NEGATIVE); LEUKOCYTE ESTERASE, URINE AUTO 3+ (NEGATIVE); NITRITE, URINE AUTO POSITIVE (NEGATIVE); PROTEIN, URINE AUTO NEGATIVE (NEGATIVE); RBC, URINE AUTO 64 /HPF (0-3); SPECIFIC GRAVITY URINE AUTO 1.011 (1.002-1.035); UROBILINOGEN, URINE AUTO 0.2 mg/dL (0.0-2.0); WBC, URINE AUTO 118 /HPF (0-3)
[2020-03-25 06:31] LABS: AMORPHOUS SEDIMENT SMALL (NEGATIVE); BACTERIA, URINE AUTO 1+ (NEGATIVE); MUCUS, URINE SMALL (NEGATIVE); SQUAMOUS EPITHELIAL CELL UR AU 0 /HPF (0-6)
[2020-03-25] MEDS: ACETAMINOPHEN TAB 650MG DOSE (2X325MG) PO PRN ×2 (06:32→20:09)
[2020-03-25] MEDS: NS 1,000 ML IV SCH ×2 (06:33→16:24)
[2020-03-25] MEDS ORDERED: APIXABAN 2.5 MG TAB (ELIQUIS) PO SCH (09:00)
[2020-03-25 09:20] LABS: FERRITIN 127 NG/ML (8-252); IRON (FE) 6 UG/DL (50-170); PERCENT SATURATION 3.3 % (13.2-45.0); TOTAL IRON BINDING CAPACITY 180 UG/DL (250-450)
[2020-03-25] MEDS: BACLOFEN 10 MG TAB PO SCH ×4 (09:29→20:10)
[2020-03-25] MEDS: tiZANidine 4 MG TAB PO SCH ×3 (09:29→20:09)
[2020-03-25] MEDS: MECLIZINE 25 MG TABLET PO SCH (09:29)
[2020-03-25] MEDS: ASCORBIC ACID 500 MG TAB PO SCH (09:29)
[2020-03-25] MEDS: oxyBUTYnin 5 MG TAB PO SCH ×2 (09:29→20:10)
[2020-03-25] MEDS: METOPROLOL SUCC *XL* 25MG TAB (TopROL *XL*) PO SCH (09:33)
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
[2020-03-25 14:00] VITALS: BP 120/69
[2020-03-25 16:04] LABS: BASO % 0.2 % (0.0-1.0); EOS # 0.1 10^3/uL (0.0-0.5); EOS % 0.3 % (0.0-3.0); HEMATOCRIT 22.6 % (36.0-47.0); LYMPH # 1.2 10^3/uL (1.5-5.0); LYMPH % 7.4 % (24.0-44.0); MEAN CORPUSCULAR HEMOGLOBIN 21.8 pg (27.0-33.0); MEAN CORPUSCULAR HGB CONC 29.6 g/dl (32.0-36.5); MEAN CORPUSCULAR VOLUME 73.6 fl (80.0-96.0); MONO # 1.4 10^3/uL (0.0-0.8); MONO % 8.4 % (0.0-5.0); NEUTROPHILS # 13.3 10^3/uL (1.5-8.5); NEUTROPHILS % 83.2 % (36.0-66.0); PLATELET COUNT, AUTOMATED 512 10^3/uL (150-450); RED BLOOD COUNT 3.07 10^6/uL (4.00-5.40)
[2020-03-25 16:08] LABS: HEMOGLOBIN 6.7 g/dl (12.0-15.5)
[2020-03-25] MEDS: IRON SUCROSE 200 MG in NS 100 ML IV SCH (16:24)
--- NOTE | 2020-03-25 18:01 | REPVR ---
PROCEDURE INFORMATION: Exam: CT Abdomen And Pelvis Without Contrast Exam date and time: 03/25/2020 5:41 PM Age: 59 years old Clinical indication: Abdominal pain; Generalized; Prior surgery; Additional info: Abd bleed TECHNIQUE: Imaging protocol: Computed tomography of the abdomen and pelvis without contrast. Radiation optimization: All CT scans at this facility use at least one of these dose optimization techniques: automated exposure control; mA and/or kV adjustment per patient size (includes targeted exams where dose is matched to clinical indication); or iterative reconstruction. COMPARISON: CT ABD/PEL W/IV CONTRAST ONLY 07/31/2019 3:42 PM FINDINGS: Limited evaluation without enteric or IV contrast. Exam is limited by artifact from patient being scanned with arms at the sides. Streak artifact from external metallic devices is also present Lungs: No suspicious mass or airspace process in the visualized lung bases. Liver: Liver demonstrates no focal lesion for noncontrast CT. Liver is mildly enlarged measuring 19 -20 cm in length. Gallbladder and bile ducts: Gallbladder is either contracted or surgically absent. Pancreas: Noncontrast pancreas shows no obvious mass or adjacent fluid. Spleen: Spleen is upper limits normal in size measuring 12.5 cm. No obvious lesion. Adrenals: Adrenal glands are normal in appearance. Kidneys and ureters: Left kidney demonstrates a urinary stent extending from the renal pelvis into an ileostomy urinary pouch in the right lower quadrant. Catheter extends through the ileal conduit into an external reservoir Right kidney demonstrates nonobstructive calculi and moderate hydronephrosis to the level of the ileostomy pouch, similar in appearance to the prior exam. No ureter stone is visualized. Stomach and bowel: No evidence of small bowel obstruction. Peristomal hernia around the ileostomy is present, containing nonobstructed bowel. There may be rectal and distal sigmoid wall thickening. Appendix: Appendix is not visualized. Intraperitoneal space: No pneumoperitoneum. No pelvic mass. Probable hysterectomy. Vasculature: Atherosclerotic change present in the aorta, without aneurysm. Lymph nodes: Small retroperitoneal lymph nodes are present. Bladder: Bladder is surgically absent. Reproductive: See "Intraperitoneal space" finding. Bones/joints: See "Soft tissues" finding. Soft tissues: No intra-abdominal hematoma. Ischial decubitus ulcer on the right, with irregularity and sclerosis of the ischium, and air extending down to the surface of the bone. This is progressive since the prior exam. Periarticular calcifications are seen around both hips, more extensive on the right, and unchanged. IMPRESSION: 1. No evidence of abdominal or pelvic hematoma on noncontrast CT. 2. Ileal conduit with stable right-sided renal pelvis and ureter dilatation but no stone. Decompressed left kidney with drainage catheter present. 3. Peristomal right lower quadrant hernia containing nonobstructed appearing bowel. 4. Hepatosplenomegaly. 5. Questionable rectal wall thickening which could be evaluated on physical exam 6. Right ischial decubitus ulcer with progressive right ischial tuberosity osteomyelitis Electronically signed by: Que Sims On 03/25/2020 18:01:20 PM
[2020-03-25] MEDS: PIPERACILLIN/TAZOBACTAM SOD 4.5 GM in D5W MINI-BAG PLUS 50 ML IV SCH ×2 (18:40→23:18)
[2020-03-25] MEDS: DOCUSATE SODIUM 100 MG CAP PO SCH (20:10)
[2020-03-25] MEDS: MULTIVITAMINS/MINERALS THERAP 1 TAB PO SCH (20:10)
[2020-03-25] MEDS: SENNA 8.6 MG TAB (SENOKOT) PO SCH (20:12)
[2020-03-25 20:20] VITALS: BP 115/55
[2020-03-25 20:35] VITALS: BP 114/55
[2020-03-25 21:20] VITALS: BP 102/52
[2020-03-25] MEDS ORDERED: KETOROLAC 30 MG/ML 1ML VIAL IV ONE (21:30)
[2020-03-26] VITALS (7 sets, daily range): BP systolic 90–120; BP diastolic 48–72
[2020-03-26 00:19] LABS: HEMOGLOBIN 6.6 g/dl (12.0-15.5)
[2020-03-26] MEDS ORDERED: NS 1,000 ML IV ONE (01:15)
[2020-03-26] MEDS: CLOTRIMAZOLE 10 MG TROCHE PO SCH ×5 (05:55→21:38)
[2020-03-26] MEDS: PIPERACILLIN/TAZOBACTAM SOD 4.5 GM in D5W MINI-BAG PLUS 50 ML IV SCH ×3 (05:55→19:03)
[2020-03-26 05:59] LABS: HEMATOCRIT 25.1 % (36.0-47.0); HEMOGLOBIN 7.6 g/dl (12.0-15.5); MEAN CORPUSCULAR HEMOGLOBIN 22.6 pg (27.0-33.0); MEAN CORPUSCULAR HGB CONC 30.3 g/dl (32.0-36.5); MEAN CORPUSCULAR VOLUME 74.7 fl (80.0-96.0); PLATELET COUNT, AUTOMATED 481 10^3/uL (150-450); RED BLOOD COUNT 3.36 10^6/uL (4.00-5.40)
[2020-03-26 06:25] LABS: ALBUMIN 1.6 GM/DL (3.2-5.2); ALT/SGPT 15 U/L (12-78); BILIRUBIN,TOTAL 0.5 MG/DL (0.2-1.0); BLOOD UREA NITROGEN 17 MG/DL (7-18); CALCIUM LEVEL 7.9 MG/DL (8.5-10.1); CARBON DIOXIDE LEVEL 24 MEQ/L (21-32); CHLORIDE LEVEL 113 MEQ/L (98-107); CREATININE FOR GFR 0.43 MG/DL (0.55-1.30); GLOMERULAR FILTRATION RATE > 60.0 (>51); GLUCOSE, FASTING 90 MG/DL (70-100); MAGNESIUM LEVEL 1.8 MG/DL (1.8-2.4); POTASSIUM SERUM 3.4 MEQ/L (3.5-5.1); SODIUM LEVEL 144 MEQ/L (136-145)
[2020-03-26] MEDS: NS 1,000 ML IV SCH ×3 (07:27→21:11)
[2020-03-26] MEDS ORDERED: POTASSIUM CHLORIDE 10 MEQ SR TABLET PO ONE (08:00)
[2020-03-26] MEDS: ASCORBIC ACID 500 MG TAB PO SCH (09:12)
[2020-03-26] MEDS: BACLOFEN 10 MG TAB PO SCH ×4 (09:12→21:38)
[2020-03-26] MEDS: tiZANidine 4 MG TAB PO SCH ×3 (09:12→21:38)
[2020-03-26] MEDS: oxyBUTYnin 5 MG TAB PO SCH ×2 (09:12→21:38)
[2020-03-26] MEDS: METOPROLOL SUCC *XL* 25MG TAB (TopROL *XL*) PO SCH (09:12)
[2020-03-26] MEDS: MECLIZINE 25 MG TABLET PO SCH (09:12)
[2020-03-26 09:46] LABS: HEMATOCRIT 27.1 % (36.0-47.0); HEMOGLOBIN 8.3 g/dl (12.0-15.5)
[2020-03-26 10:12] LABS: FOLATE 18.9 NG/ML (>5.4)
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
[2020-03-26 15:02] LABS: HEMATOCRIT 28.4 % (36.0-47.0); HEMOGLOBIN 8.6 g/dl (12.0-15.5)
[2020-03-26] MEDS: IRON SUCROSE 200 MG in NS 100 ML IV SCH (16:59)
[2020-03-26 21:24] LABS: HEMATOCRIT 26.4 % (36.0-47.0); HEMOGLOBIN 8.1 g/dl (12.0-15.5)
[2020-03-26] MEDS: DOCUSATE SODIUM 100 MG CAP PO SCH (21:38)
[2020-03-26] MEDS: MULTIVITAMINS/MINERALS THERAP 1 TAB PO SCH (21:38)
[2020-03-26] MEDS: SENNA 8.6 MG TAB (SENOKOT) PO SCH (21:38)
[2020-03-26] MEDS: FLUTICASONE PROP 0.05% NASAL SPRAY 16 GM (FLONASE) NARES SCH (21:38)
[2020-03-27] MEDS: PIPERACILLIN/TAZOBACTAM SOD 4.5 GM in D5W MINI-BAG PLUS 50 ML IV SCH ×5 (00:22→18:01)
[2020-03-27 03:34] LABS: HEMATOCRIT 25.5 % (36.0-47.0); HEMOGLOBIN 7.8 g/dl (12.0-15.5)
[2020-03-27 04:06] LABS: ERYTHROCYTE SEDIMENTATION RATE 83 mm/hr (0-30)
[2020-03-27] MEDS: CLOTRIMAZOLE 10 MG TROCHE PO SCH ×5 (05:14→20:59)
[2020-03-27 06:00] VITALS: BP 122/62
[2020-03-27] MEDS: MECLIZINE 25 MG TABLET PO SCH (08:35)
[2020-03-27] MEDS: oxyBUTYnin 5 MG TAB PO SCH ×2 (08:35→20:58)
[2020-03-27] MEDS: ASCORBIC ACID 500 MG TAB PO SCH (08:36)
[2020-03-27] MEDS: METOPROLOL SUCC *XL* 25MG TAB (TopROL *XL*) PO SCH (08:36)
[2020-03-27] MEDS: BACLOFEN 10 MG TAB PO SCH ×4 (08:36→20:58)
[2020-03-27] MEDS: tiZANidine 4 MG TAB PO SCH ×3 (08:36→20:58)
[2020-03-27] MEDS ORDERED: LIDOCAINE 1% MDV 20ML VIAL As Ordered ONE ×2 (09:17→13:30)
[2020-03-27] MEDS ORDERED: ISOVUE-300 61% 50ML VIAL As Ordered ONE (09:17)
[2020-03-27] MEDS: NS 1,000 ML IV SCH ×2 (09:56→20:58)
[2020-03-27 10:03] LABS: BASO # 0.1 10^3/uL (0.0-0.2); BASO % 0.5 % (0.0-1.0); EOS # 0.1 10^3/uL (0.0-0.5); EOS % 1.3 % (0.0-3.0); HEMATOCRIT 27.6 % (36.0-47.0); HEMOGLOBIN 8.5 g/dl (12.0-15.5); LYMPH # 1.2 10^3/uL (1.5-5.0); LYMPH % 11.8 % (24.0-44.0); MEAN CORPUSCULAR HEMOGLOBIN 22.8 pg (27.0-33.0); MEAN CORPUSCULAR HGB CONC 30.8 g/dl (32.0-36.5); MEAN CORPUSCULAR VOLUME 74.2 fl (80.0-96.0); MONO # 0.8 10^3/uL (0.0-0.8); MONO % 7.9 % (0.0-5.0); NEUTROPHILS # 8.1 10^3/uL (1.5-8.5); NEUTROPHILS % 77.3 % (36.0-66.0); PLATELET COUNT, AUTOMATED 595 10^3/uL (150-450); RED BLOOD COUNT 3.72 10^6/uL (4.00-5.40); WHITE BLOOD COUNT 10.4 10^3/uL (4.0-10.0)
[2020-03-27 10:20] LABS: BLOOD UREA NITROGEN 9 MG/DL (7-18); CALCIUM LEVEL 7.7 MG/DL (8.5-10.1); CARBON DIOXIDE LEVEL 24 MEQ/L (21-32); CHLORIDE LEVEL 113 MEQ/L (98-107); CREATININE FOR GFR 0.36 MG/DL (0.55-1.30); GLOMERULAR FILTRATION RATE > 60.0 (>51); GLUCOSE, FASTING 100 MG/DL (70-100); MAGNESIUM LEVEL 1.8 MG/DL (1.8-2.4); POTASSIUM SERUM 3.6 MEQ/L (3.5-5.1); SODIUM LEVEL 144 MEQ/L (136-145)
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
--- NOTE | 2020-03-27 13:14 | REP ---
IR Conduit Stent ExchangeIR Ileal conduit stent exchange with fluoroscopic guidanceModerate Sedation Clinical Information: Ureteral stricturePhysician: Dr. HernándezeProcedure: The patient was advised of the benefits, risks, and alternatives of the procedure and informed consent was obtained.A time out was performed with verification of the patient's name, MRN, site of procedure, and type of procedure to be performed. The patient was positioned in the supine position on the angiographic table. The site was prepped and draped in the usual sterile fashion.Moderate sedation was not performed. The physician spent 30 minutes of continuous [id number] time with the patient.A audio video tech radiograph reveals left ureteral stent. A nephrostogram was performed through the existing catheter and shows the catheters positioned within the left renal collecting system. A wire was advanced through the exposed portion of the previously placed stent and into the left renal pelvis. The stent was subsequently exchanged for a new 8.5 F American 45 cm cook ureteral catheter. Positioning was confirmed with contrast injection. A new ostomy bag was placed over the ostomy.The patient tolerated the procedure well and was returned to the PRU in stable condition.EBL: < 5 mlComplications: NoneConclusion:Successful conduit stent exchange. The patient should return in 8 - 12 weeks for routine exchange. Thank you for this referral Electronically Signed by Angelika Garcia MD 03/27/2020 01:12 P
[2020-03-27 14:00] VITALS: BP 140/72
[2020-03-27 15:05] LABS: HEMATOCRIT 30.9 % (36.0-47.0); HEMOGLOBIN 9.4 g/dl (12.0-15.5)
[2020-03-27] MEDS ORDERED: SODIUM CHLORIDE 0.9% INJ 10 ML SYR IV PRN (17:15)
[2020-03-27] MEDS: IRON SUCROSE 200 MG in NS 100 ML IV SCH (17:20)
[2020-03-27] MEDS: SODIUM CHLORIDE 0.9% INJ 10 ML SYR IV SCH (18:01)
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
[2020-03-27 19:44] LABS: CLOSTRIDIUM DIFFICILE PCR NEGATIVE (NEGATIVE)
[2020-03-27] MEDS: DOCUSATE SODIUM 100 MG CAP PO SCH (20:59)
[2020-03-27] MEDS: MULTIVITAMINS/MINERALS THERAP 1 TAB PO SCH (20:59)
[2020-03-27] MEDS: SENNA 8.6 MG TAB (SENOKOT) PO SCH (20:59)
[2020-03-27] MEDS: FLUTICASONE PROP 0.05% NASAL SPRAY 16 GM (FLONASE) NARES SCH (20:59)
[2020-03-27 21:07] LABS: HEMOGLOBIN 8.4 g/dl (12.0-15.5)
[2020-03-27 22:00] VITALS: BP 118/62
[2020-03-28] MEDS: PIPERACILLIN/TAZOBACTAM SOD 4.5 GM in D5W MINI-BAG PLUS 50 ML IV SCH ×2 (00:04→05:53)
[2020-03-28 03:15] LABS: BASO % 0.4 % (0.0-1.0); EOS # 0.3 10^3/uL (0.0-0.5); EOS % 2.6 % (0.0-3.0); HEMOGLOBIN 8.3 g/dl (12.0-15.5); LYMPH # 1.3 10^3/uL (1.5-5.0); LYMPH % 13.4 % (24.0-44.0); MEAN CORPUSCULAR HEMOGLOBIN 22.5 pg (27.0-33.0); MEAN CORPUSCULAR HGB CONC 30.7 g/dl (32.0-36.5); MEAN CORPUSCULAR VOLUME 73.2 fl (80.0-96.0); MONO # 0.8 10^3/uL (0.0-0.8); MONO % 8.5 % (0.0-5.0); NEUTROPHILS # 7.1 10^3/uL (1.5-8.5); NEUTROPHILS % 74.1 % (36.0-66.0); PLATELET COUNT, AUTOMATED 540 10^3/uL (150-450); RED BLOOD COUNT 3.69 10^6/uL (4.00-5.40); WHITE BLOOD COUNT 9.6 10^3/uL (4.0-10.0)
[2020-03-28 03:37] LABS: BLOOD UREA NITROGEN 9 MG/DL (7-18); CALCIUM LEVEL 7.5 MG/DL (8.5-10.1); CARBON DIOXIDE LEVEL 26 MEQ/L (21-32); CHLORIDE LEVEL 112 MEQ/L (98-107); GLOMERULAR FILTRATION RATE > 60.0 (>51); GLUCOSE, FASTING 83 MG/DL (70-100); MAGNESIUM LEVEL 1.9 MG/DL (1.8-2.4); POTASSIUM SERUM 3.3 MEQ/L (3.5-5.1); SODIUM LEVEL 142 MEQ/L (136-145)
[2020-03-28] MEDS ORDERED: POTASSIUM CHLORIDE 10 MEQ SR TABLET PO ONE (05:30)
[2020-03-28] MEDS: CLOTRIMAZOLE 10 MG TROCHE PO SCH ×5 (05:53→20:57)
[2020-03-28] MEDS: SODIUM CHLORIDE 0.9% INJ 10 ML SYR IV SCH ×2 (05:53→18:08)
[2020-03-28] MEDS: NS 1,000 ML IV SCH ×3 (05:54→16:57)
[2020-03-28 06:00] VITALS: BP 148/72
[2020-03-28 09:53] LABS: HEMATOCRIT 28.9 % (36.0-47.0)
[2020-03-28] MEDS: oxyBUTYnin 5 MG TAB PO SCH ×2 (10:18→20:57)
[2020-03-28] MEDS: ASCORBIC ACID 500 MG TAB PO SCH (10:18)
[2020-03-28] MEDS: MECLIZINE 25 MG TABLET PO SCH (10:18)
[2020-03-28] MEDS: tiZANidine 4 MG TAB PO SCH ×3 (10:18→20:57)
[2020-03-28] MEDS: BACLOFEN 10 MG TAB PO SCH ×4 (10:18→20:57)
[2020-03-28] MEDS: METOPROLOL SUCC *XL* 25MG TAB (TopROL *XL*) PO SCH (10:19)
[2020-03-28] MEDS: MEROPENEM INJ 1 GM in IV 1 EA IV SCH ×2 (10:19→18:10)
[2020-03-28] MEDS ORDERED: MEROPENEM INJ 2 GM in NS 100 ML IV SCH (11:00)
--- NOTE | 2020-03-28 11:15 | REP ---
Procedure: PICC line insertion with Omari-Antonio The procedure was performed under the direct supervision of Dr. Judd. The risks and benefits of the procedure were explained to the patient and informed consent was obtained. The right basilic vein was localized using ultrasound guidance. The skin was prepped and draped in a sterile fashion. 2% lidocaine was used as a local anesthetic. Using ultrasound guidance the basilic vein was cannulated and a 0.018 guidewire was inserted and advanced to the SVC using fluoroscopic guidance. The needle was removed and a 5.5 [place] dilator and peel-away sheath was inserted over the guide wire. A 5.5 [place] dual lumen catheter was cut to length of 37 cm. The dilator was removed and the catheter was inserted over the guide wire with the tip ending in the SVC. The peel-away sheath was removed and the catheter was flushed with sterile saline as the patient has a heparin allergy. The catheter was affixed to the skin and a sterile dressing was applied. The patient tolerated the procedure well and there were no immediate complications. 0.2 minutes of fluoro time was utilized for this procedure. Electronically Signed by YAMINI Turner 03/27/2020 05:21 P Electronically Signed by Earle Judd MD 03/28/2020 11:05 A
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
[2020-03-28] MEDS: LOPERAMIDE 2 MG CAPLET PO PRN (13:08)
[2020-03-28 14:00] VITALS: BP 138/72
[2020-03-28 14:51] LABS: HEMATOCRIT 28.5 % (36.0-47.0); HEMOGLOBIN 8.8 g/dl (12.0-15.5)
[2020-03-28] MEDS: IRON SUCROSE 200 MG in NS 100 ML IV SCH (16:58)
[2020-03-28] MEDS: MULTIVITAMINS/MINERALS THERAP 1 TAB PO SCH (20:56)
[2020-03-28] MEDS: DOCUSATE SODIUM 100 MG CAP PO SCH (20:57)
[2020-03-28] MEDS: FLUTICASONE PROP 0.05% NASAL SPRAY 16 GM (FLONASE) NARES SCH (20:58)
[2020-03-28] MEDS: SENNA 8.6 MG TAB (SENOKOT) PO SCH (20:58)
[2020-03-28 22:00] VITALS: BP 148/76
[2020-03-29] MEDS: NS 1,000 ML IV SCH (01:27)
[2020-03-29] MEDS: MEROPENEM INJ 1 GM in IV 1 EA IV SCH ×2 (01:27→09:28)
[2020-03-29] MEDS: LOPERAMIDE 2 MG CAPLET PO PRN ×3 (04:05→12:14)
[2020-03-29] MEDS: SODIUM CHLORIDE 0.9% INJ 10 ML SYR IV SCH (05:40)
[2020-03-29] MEDS: CLOTRIMAZOLE 10 MG TROCHE PO SCH ×3 (05:40→12:14)
[2020-03-29 06:00] VITALS: BP 122/74
[2020-03-29 06:11] LABS: BASO # 0.1 10^3/uL (0.0-0.2); BASO % 0.6 % (0.0-1.0); EOS # 0.3 10^3/uL (0.0-0.5); EOS % 3.9 % (0.0-3.0); HEMATOCRIT 28.3 % (36.0-47.0); HEMOGLOBIN 8.6 g/dl (12.0-15.5); LYMPH # 1.4 10^3/uL (1.5-5.0); LYMPH % 16.9 % (24.0-44.0); MEAN CORPUSCULAR HEMOGLOBIN 22.9 pg (27.0-33.0); MEAN CORPUSCULAR HGB CONC 30.4 g/dl (32.0-36.5); MEAN CORPUSCULAR VOLUME 75.3 fl (80.0-96.0); MONO # 0.8 10^3/uL (0.0-0.8); MONO % 9.2 % (0.0-5.0); NEUTROPHILS # 5.5 10^3/uL (1.5-8.5); NEUTROPHILS % 67.6 % (36.0-66.0); PLATELET COUNT, AUTOMATED 535 10^3/uL (150-450); RED BLOOD COUNT 3.76 10^6/uL (4.00-5.40); WHITE BLOOD COUNT 8.2 10^3/uL (4.0-10.0)
[2020-03-29 06:27] LABS: BLOOD UREA NITROGEN 6 MG/DL (7-18); CALCIUM LEVEL 7.4 MG/DL (8.5-10.1); CARBON DIOXIDE LEVEL 26 MEQ/L (21-32); CHLORIDE LEVEL 112 MEQ/L (98-107); CREATININE FOR GFR 0.27 MG/DL (0.55-1.30); GLOMERULAR FILTRATION RATE > 60.0 (>51); GLUCOSE, FASTING 80 MG/DL (70-100); MAGNESIUM LEVEL 1.9 MG/DL (1.8-2.4); POTASSIUM SERUM 3.4 MEQ/L (3.5-5.1); SODIUM LEVEL 146 MEQ/L (136-145)
[2020-03-29] MEDS ORDERED: FERR325T81 PO (08:01)
[2020-03-29] MEDS: oxyBUTYnin 5 MG TAB PO SCH (09:28)
[2020-03-29] MEDS: BACLOFEN 10 MG TAB PO SCH ×2 (09:28→12:15)
[2020-03-29 09:29] VITALS: BP 148/70
[2020-03-29] MEDS: tiZANidine 4 MG TAB PO SCH (09:29)
[2020-03-29] MEDS: ASCORBIC ACID 500 MG TAB PO SCH (09:29)
[2020-03-29] MEDS: METOPROLOL SUCC *XL* 25MG TAB (TopROL *XL*) PO SCH (09:29)
[2020-03-29] MEDS: MECLIZINE 25 MG TABLET PO SCH (09:29)
[2020-03-29] MEDS ORDERED: APIXABAN 2.5 MG TAB (ELIQUIS) PO ONE (10:30)
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
--- NOTE | 2020-03-30 09:56 | IPN ---
DATE: 03/28/2020 INFECTIOUS DISEASE PROGRESS NOTE Radha wants to go home. She is doing great. She denies any fever, chills or night sweats. No nausea, vomiting, diarrhea. She does not have pain in her hip area where she has osteomyelitis as she is paraplegic. She has a peripherally inserted central catheter (PICC) line and wants to discuss antibiotic treatment at home. She is scheduled to have hyperbaric treatment done tomorrow at 1 o'clock. LABORATORY DATA: White count 9.6, hemoglobin 8.3, hematocrit 27, platelets 540, 74% neutrophils, 13% lymphocytes, 8% monocytes. Sodium 142, potassium 3.3, chloride 112, bicarbonate 26, BUN 9, creatinine 0.4, glucose 83, calcium 7.5, magnesium 1.9, CRP 17.1 down to 10.4. Bone culture done from the right hip shows Pseudomonas aeruginosa, still preliminary susceptible to meropenem with ERICH of 1. Blood cultures, two sets, were negative. ASSESSMENT AND PLAN: Urinary tract infection, status post change of stent in the interventional radiology (IR) suite, done by Dr. Garcia. She had a new stent placed in the left renal pelvis. PICC line was placed on 03/27/2020. CT abdomen and pelvis done on 03/25/2020 shows right lower quadrant hernia, hepatosplenomegaly, right ischial decubitus ulcer with progressive osteomyelitis and ileal conduit with stable right-sided renal pelvis. Decompressed left kidney with drainage catheter. IMPRESSION: 1. Chronic osteomyelitis of the right hip with culture positive for Pseudomonas. The patient was started on IV meropenem today. She will be treated with 6 weeks of IV antibiotics through a peripherally inserted central catheter (PICC) line. End of treatment will be 05/09/2020. Labs to be followed will be CBC, CMP, ESR, CRP weekly. Anticipated discharge will be tomorrow. 2. Urinary tract infection, resolved. The patient was on Zosyn from 03/25/2020 to 03/28/2020 with the improvement of her symptom and resolution of fever. 3. Paraplegia. PLAN: Continue offloading from the hip, IV antibiotic meropenem 2 grams IV every 12 hours, end of treatment 05/09/2020. The patient needs to be discharged to the wound clinic tomorrow so she can keep her appointment at 1 o'clock and get hyperbaric treatment and be seen by Mignon Bautista.
--- NOTE | 2020-03-30 15:31 | IPN ---
DATE: 03/29/2020 Radha is doing well except for diarrhea with stool incontinence. She gets very frustrated when she has diarrhea because she is worried about her wound getting contaminated. She has had no fever, chills, nausea or vomiting or abdominal pain. She is getting discharged this afternoon to go to wound care. Temperature is 97.9, pulse 78, respirations 18, blood pressure 122/74, oxygen saturation (O2 sat) 98% on room air. Heart: Normal S1, S2. No murmurs. Lungs are clear. No wheezes, rales or rhonchi. Abdomen is soft, nontender. Right hip decubitus ulcer with ischial ulcer, has good granulation tissue, bone is exposed. There is no purulent discharge. There is no surrounding erythema. There is some skin maceration. LABORATORY DATA: White count is 8.2, hemoglobin 8.6, hematocrit 28.3, platelets 535, 67% neutrophils, 17% lymphocytes, 9% monocytes. Sodium 146, potassium 3.4, chloride 112, bicarbonate 26, BUN 6, creatinine 0.27, glucose 80, calcium 7.4, magnesium 1.9, CRP 10.4. Wound culture has Pseudomonas aeruginosa, Escherichia (E) coli and Enterococcus faecalis. Pseudomonas is sensitive to meropenem, E-coli sensitive to meropenem and Enterococcus faecalis is sensitive to ampicillin. IMPRESSION: 1. Chronic osteomyelitis of right ischial tuberosity with polymicrobial infection, Pseudomonas E. coli and E. Faecalis. The patient will be on IV meropenem for 6 weeks. 2. Urinary tract infection, status post cystectomy for bladder cancer. The patient had her catheter changed, had her stent changed in the diverting ureterostomy by Dr. Garcia on 03/27/2020. 3. T3-T4 paraplegia. PLAN: The patient will follow up in my office in 2 weeks through a Zoom call on Wednesday when her nurse will be available to do a televisit. The patient will be discharged on meropenem 2 grams IV every 12 hours, as the patient has hyperbaric treatment during the day and will not be able to do every 8 hour dosing. For diarrhea, the patient will use probiotics as all as Kefir drink She will take Imodium as needed two tablets every 4 hours as needed. Labs to be monitored: CBC, CMP, sed rate, CRP weekly. End of treatment for antibiotics will be 05/09/2020. MTDD
== END 2020-03-29 12:46 | disposition home health service (06) | DRG 720 ==
LOC: M MSPAV 03:17
PROVIDERS: ADMIT Internal Medicine; ATTEND Internal Medicine
PROC: 30233N1 Transfusion of Nonautologous Red Blood Cells into Peripheral Vein, Percutaneous Approach (ICD-10-PCS; 2020-03-25)
PROC: 0T29X0Z Change Drainage Device in Ureter, External Approach (ICD-10-PCS; 2020-03-27)
PROC: 02HV33Z Insertion of Infusion Device into Superior Vena Cava, Percutaneous Approach (ICD-10-PCS; principal; 2020-03-27 12:00)
DX: A41.9 Sepsis, unspecified organism (principal); L89.319 Pressure ulcer of right buttock, unspecified stage; G82.20 Paraplegia, unspecified; Z93.6 Other artificial openings of urinary tract status; B37.0 Candidal stomatitis; N39.0 Urinary tract infection, site not specified; I10 Essential (primary) hypertension; M86.68 Other chronic osteomyelitis, other site; R19.7 Diarrhea, unspecified; B95.2 Enterococcus as the cause of diseases classified elsewhere; B96.5 Pseudomonas (aeruginosa) (mallei) (pseudomallei) as the cause of diseases classified elsewhere; D50.9 Iron deficiency anemia, unspecified; B96.20 Unspecified Escherichia coli [E. coli] as the cause of diseases classified elsewhere; Z85.51 Personal history of malignant neoplasm of bladder; Z79.01 Long term (current) use of anticoagulants; Z79.899 Other long term (current) drug therapy; Z88.8 Allergy status to other drugs, medicaments and biological substances; Z88.5 Allergy status to narcotic agent; Z88.1 Allergy status to other antibiotic agents; Z86.718 Personal history of other venous thrombosis and embolism; Z86.711 Personal history of pulmonary embolism; Z91.041 Radiographic dye allergy status; Z96.0 Presence of urogenital implants

== ENCOUNTER → 2020-05-21 | Outpatient (POV) | payer OTHER ==
[~2020-05-21] MED LIST changes: -ASPI81TA85 PO; +ASPI81TA86 PO; +CLOT10TR PO; +FERR325T81 PO
--- NOTE | 2020-05-23 08:41 | IRPN ---
[facility] IR Progress Note IR Progress Note DATE: May 21, 2020 Patient agreed to this telephone consultation. Duration of call 10 minutes. FOLLOW-UP: Patient with ileal conduit and anastomotic stricture, ureteral stent dependent. Prior 10 F APDL would constantly retract back into the conduit therefore a double J was placed with cap added on the end. However this is also cumbersome and slipping and sliding in the ostomy. There are no longer double J stents available from [employer], the next best option is a larger bore 12 F APDL which may hold better in the anastomosis and less likely to slip out. We have ordered this, patient will return next week for stent exchange. Allergies Coded Allergies: heparin (Verified Allergy, Severe, rash, hives, loss of voice , 08/03/19) Pt reports she had a DVT blood clot in her leg in 1994 and was put on a heparin drip. Pt states once on the heparin drug she developed a full body rash/hives and loss of voice. then determined she had a reaction oxycodone (Verified Allergy, Intermediate, 07/31/19) Contrast Media (Unverified Allergy, Mild, IVP DYE - RASH, 02/08/20) ciprofloxacin (Verified Adverse Reaction, Intermediate, mouth sores, 02/08/20) tramadol (Verified Adverse Reaction, Mild, dizzy, 02/08/20) zolpidem (Verified Adverse Reaction, Mild, anxious, 02/08/20) MARIO CROOK MD May 23, 2020 08:41
== END ==
LOC: M TMIRPOV 13:13
PROVIDERS: ATTEND Radiology Diagnostic Radiology
DX: Z48.816 Encounter for surgical aftercare following surgery on the genitourinary system (principal); Z86.718 Personal history of other venous thrombosis and embolism; Z88.1 Allergy status to other antibiotic agents; Z88.5 Allergy status to narcotic agent; Z88.8 Allergy status to other drugs, medicaments and biological substances; Z91.041 Radiographic dye allergy status

== ENCOUNTER → 2020-05-29 | Outpatient (CLI) | payer OTHER ==
[~2020-05-29] MED LIST changes: +CEPHALEXIN 500 MG CAP ONE; +ISOVUE-300 61% 50ML VIAL As Ordered ONE
--- NOTE | 2020-07-05 10:19 | POST-OPPD ---
Postoperative Procedure Note Date Of Procedure: May 29, 2020 Time Of Procedure: 16:00 Full op note IR Conduit Stent Exchange Ileal conduit stent exchange with fluoroscopic guidance Clinical Information:Bladder cancer status post cystectomy. Ileal conduit stenosis. Left nephroureteral stent dependent. Last stent placed is too short. Physician: Dr. Garcia Procedure: The patient was advised of the benefits, risks, and alternatives of the procedure and informed consent was obtained. A time out was performed with verification of the patient's name, MRN, site of procedure, and type of procedure to be performed. The patient was positioned in the supine position on the angiographic table. The site was prepped and draped in the usual sterile fashion. Moderate sedation was not required. The physician spent 30 minutes continuous [id number] time with the patient. A analytics leader radiograph reveals the old ileal conduit stent retracted to the lower pelvis. A wire was advanced through the existing ileal conduit stent, under fluoroscopy guidance into the left renal collecting system. The stent was removed over the wire. A new 12 [place] 45 cm all purpose catheter was advanced over the wire under fluoroscopy guidance and positioned in the renal pelvis. The wire was removed. Nephrostogram was performed which demonstrates appropriate positioning of the pigtail within the renal collecting system and hydronephrosis. The ureter is not patent. A new ostomy bag was attached. The patient tolerated the procedure well and was returned to the PRU in stable condition. EBL:Less than 5 mL Complications:None Conclusion: Successful conduit stent exchange. The patient should return in 3 months for routine exchange. Patient should flush catheter with 10 mL sterile saline every day. MARIO GARCIA MD Jul 05, 2020 10:19
--- NOTE | 2020-07-22 10:44 | REP ---
NEPHROSTOMY STUDY: TECHNIQUE: Intraoperative fluoroscopic imaging using portable C-arm technique. FINDINGS: Multiple images demonstrate a pigtail catheter extending into a dilated left renal pelvis via urostomy. Total fluoroscopic time: 1 minute. IMPRESSION: Status post left ureteral stent placement via right-sided urostomy with evidence for moderate left hydronephrosis. MTDD
== END ==
LOC: M RAD 14:18 → M IRPRO 14:18
PROVIDERS: ATTEND Radiology Diagnostic Radiology
DX: C67.9 Malignant neoplasm of bladder, unspecified (principal)
CPT/HCPCS: 50688; 99152; 99153; C1729; C1769; Q9967

== ENCOUNTER → 2020-08-14 | Outpatient (CLI) | payer OTHER ==
[~2020-08-14] MED LIST changes: +CEPHALEXIN 250MG CAPSULE PO ONE; -CEPHALEXIN 500 MG CAP ONE; +LIDOCAINE 1% MDV 20ML VIAL As Ordered ONE
[2020-08-14 13:25] VITALS: BP 145/95
--- NOTE | 2020-08-15 09:28 | POST-OPPD ---
Postoperative Procedure Note Date Of Procedure: Aug 14, 2020 Time Of Procedure: 16:00 IR Conduit Stent Exchange Ileal conduit stent exchange with fluoroscopic guidance Clinical Information:Bladder cancer status post cystectomy. Ileal conduit stenosis. Left nephroureteral stent dependent. Physician: Dr. Garcia. Procedure: The patient was advised of the benefits, risks, and alternatives of the procedure and informed consent was obtained. A time out was performed with verification of the patient's name, MRN, site of procedure, and type of procedure to be performed. The patient was positioned in the supine position on the angiographic table. The site was prepped and draped in the usual sterile fashion. Moderate sedation was not required. The physician spent 30 minutes continuous [id number] time with the patient. A convenience store manager radiograph reveals the old ileal conduit stent in expected position. A nephrostogram was performed through the existing stent which demonstrates left-sided hydronephrosis. The catheter is in the left renal collecting system. A wire was advanced through the existing ileal conduit stent, under fluoroscopy guidance into the left renal collecting system. The stent was removed over the wire. A new 14 Maltese all purpose catheter was advanced over the wire under fluoroscopy guidance and positioned in the renal pelvis. The wire was removed. Nephrostogram was performed which demonstrates appropriate positioning of the pigtail within the renal collecting system and hydronephrosis. No hydroureter. A new ostomy bag was attached. The patient tolerated the procedure well and was returned to the PRU in stable condition. EBL:Less than 5 mL Complications:None Conclusion: Successful conduit stent exchange. The patient should return in 3 months for routine exchange. Patient should flush catheter with 10 mL sterile saline every day. MARIO GARCIA MD Aug 15, 2020 09:28
== END ==
LOC: M IRPRO 11:33
PROVIDERS: ATTEND Radiology Diagnostic Radiology
DX: N99.524 Stenosis of incontinent stoma of urinary tract (principal); C67.9 Malignant neoplasm of bladder, unspecified
CPT/HCPCS: 50688; C1729; C1769; Q9967

== ENCOUNTER → 2020-10-04 | Outpatient (REF) | payer OTHER ==
[~2020-10-04] MED LIST changes: -CEPHALEXIN 250MG CAPSULE PO ONE; -DOK100TA PO; +DOK100TA2 PO; -ISOVUE-300 61% 50ML VIAL As Ordered ONE; -LIDOCAINE 1% MDV 20ML VIAL As Ordered ONE
== END ==
LOC: M SMT 16:55
PROVIDERS: ATTEND Urology
DX: C67.9 Malignant neoplasm of bladder, unspecified (principal)

== ENCOUNTER → 2020-10-08 | Outpatient (POV) | payer OTHER ==
--- NOTE | 2020-10-09 13:35 | IRPN ---
[facility] IR Progress Note IR Progress Note DATE: Oct 08, 2020 Patient agreed to this telephone follow-up. I spent 20 minutes conversing with the patient. Video conferencing was performed. FOLLOW-UP: Patient with history of bladder cancer, status post cystectomy with ileal conduit. Patient has left ileal conduit anastomotic stricture which is managed with a left ileal conduit stent. Patient has a 14 Iraqi left ileal conduit spent in place. Patient reports couple of weeks of blood tinged urine in the ostomy bag. She states this happens when she moves around and then clears during the course the day. She denies clots in the bag. She denies pain, dizziness or syncope. She was recently hospitalized and diagnosed with osteomyelitis and has been on antibiotics. Patient takes Eliquis. Patient denies pain, fevers or chills. ON EXAMINATION: Video conferencing was performed. Patient showed the ostomy bag on video. There is clear yellow urine in the bag. IMPRESSION: Patient with ileal conduit and left ureteral anastomotic stricture, underwent recent upsize of ureteral stent to 14 Iraqi. She is on Eliquis. I think the occasional blood is likely granulation tissue forming around the stent as the stent is forcing the stricture to open and remodel around the stent. If she notices more heavy blood or clots in the bag, we may downsize her stent back to 12 or 10F. Patient to follow-up for routine stent exchange. Cc Dr. Jef Marie Allergies Coded Allergies: heparin (Verified Allergy, Severe, rash, hives, loss of voice , 08/03/19) Pt reports she had a DVT blood clot in her leg in 1994 and was put on a heparin drip. Pt states once on the heparin drug she developed a full body rash/hives and loss of voice. then determined she had a reaction oxycodone (Verified Allergy, Intermediate, 07/31/19) Contrast Media (Unverified Allergy, Mild, IVP DYE - RASH, 02/08/20) ciprofloxacin (Verified Adverse Reaction, Intermediate, mouth sores, 02/08/20) tramadol (Verified Adverse Reaction, Mild, dizzy, 02/08/20) zolpidem (Verified Adverse Reaction, Mild, anxious, 02/08/20) MARIO CROOK MD Oct 09, 2020 13:35
== END ==
LOC: M TMIRPOV 08:18
PROVIDERS: ATTEND Radiology Diagnostic Radiology
DX: Z96.0 Presence of urogenital implants (principal); Z85.51 Personal history of malignant neoplasm of bladder; Z79.01 Long term (current) use of anticoagulants; Z88.1 Allergy status to other antibiotic agents; Z88.5 Allergy status to narcotic agent; Z88.8 Allergy status to other drugs, medicaments and biological substances; Z91.041 Radiographic dye allergy status

== ENCOUNTER → 2020-11-06 | Outpatient (CLI) | payer OTHER ==
[~2020-11-06] MED LIST changes: +CEPHALEXIN 500 MG CAP PO ONE; +ISOVUE-300 61% 50ML VIAL As Ordered ONE; +LIDOCAINE 1% MDV 20ML VIAL As Ordered ONE
[2020-11-06 12:50] VITALS: BP 113/64
[2020-11-06 13:16] LABS: BASO % 0.3 % (0.0-1.0); EOS # 0.2 10^3/uL (0.0-0.5); EOS % 2.1 % (0.0-3.0); HEMATOCRIT 37.8 % (36.0-47.0); HEMOGLOBIN 11.8 g/dl (12.0-15.5); LYMPH # 1.4 10^3/uL (1.5-5.0); LYMPH % 14.7 % (24.0-44.0); MEAN CORPUSCULAR HEMOGLOBIN 26.9 pg (27.0-33.0); MEAN CORPUSCULAR HGB CONC 31.2 g/dl (32.0-36.5); MEAN CORPUSCULAR VOLUME 86.3 fl (80.0-96.0); MONO # 0.9 10^3/uL (0.0-0.8); MONO % 9.5 % (0.0-5.0); NEUTROPHILS # 6.7 10^3/uL (1.5-8.5); NEUTROPHILS % 73.1 % (36.0-66.0); PLATELET COUNT, AUTOMATED 405 10^3/uL (150-450); RED BLOOD COUNT 4.38 10^6/uL (4.00-5.40); WHITE BLOOD COUNT 9.2 10^3/uL (4.0-10.0)
[2020-11-06 13:45] LABS: ERYTHROCYTE SEDIMENTATION RATE 63 mm/hr (0-30)
--- NOTE | 2020-11-06 13:54 | POST-OPPD ---
Postoperative Procedure Note Date Of Procedure: Nov 06, 2020 Time Of Procedure: 13:53 IR Conduit Stent Exchange Ileal conduit stent exchange with fluoroscopic guidance Clinical Information:Bladder cancer status post cystectomy. Ileal conduit stenosis. Left nephroureteral stent dependent. Physician: Dr. Garcia. Procedure: The patient was advised of the benefits, risks, and alternatives of the procedure and informed consent was obtained. A time out was performed with verification of the patient's name, MRN, site of procedure, and type of procedure to be performed. The patient was positioned in the supine position on the angiographic table. The site was prepped and draped in the usual sterile fashion. Moderate sedation was not required. The physician spent 30 minutes continuous jdeo-yb-nzkx time with the patient. A emts radiograph reveals the old ileal conduit stent in expected position. A nephrostogram was performed through the existing stent which demonstrates left-sided hydronephrosis. The catheter is in the left renal collecting system. A wire was advanced through the existing ileal conduit stent, under fluoroscopy guidance into the left renal collecting system. The stent was removed over the wire. A new 14 Hebrew all purpose catheter was advanced over the wire under fluoroscopy guidance and positioned in the renal pelvis. The wire was removed. Nephrostogram was performed which demonstrates appropriate positioning of the pigtail within the renal collecting system and hydronephrosis. No hydroureter. A new ostomy bag was attached. The patient tolerated the procedure well and was returned to the PRU in stable condition. EBL:Less than 5 mL Complications:None Conclusion: Successful conduit stent exchange. The patient should return in 2 months for routine exchange. Patient should flush catheter with 10 mL sterile saline every day. MARIO GARCIA MD Nov 06, 2020 13:54
== END ==
LOC: M IRPRO 11:28
PROVIDERS: ATTEND Radiology Diagnostic Radiology
DX: N99.524 Stenosis of incontinent stoma of urinary tract (principal); N13.30 Unspecified hydronephrosis; Z79.01 Long term (current) use of anticoagulants; Z85.51 Personal history of malignant neoplasm of bladder; Z88.1 Allergy status to other antibiotic agents; Z88.5 Allergy status to narcotic agent; Z88.8 Allergy status to other drugs, medicaments and biological substances; Z91.041 Radiographic dye allergy status
CPT/HCPCS: 36415; 50688; 75984; 85025; 85652; 86140; C1729; C1769; Q9967

== ENCOUNTER → 2021-01-15 | Outpatient (CLI) | payer OTHER ==
[~2021-01-15] MED LIST changes: -ALEN70TA74 PO; +ALEN70TA82 PO
--- NOTE | 2021-01-15 13:41 | IRPON ---
IR Postoperative Note Date Of Procedure: Jan 15, 2021 Time Of Procedure: 13:39 IR Postoperative Note IR Conduit Stent Exchange Ileal conduit stent exchange with fluoroscopic guidance Clinical Information:Bladder cancer status post cystectomy. Ileal conduit stenosis. Left nephroureteral stent dependent. Physician: Dr. Garcia. Procedure: The patient was advised of the benefits, risks, and alternatives of the procedure and informed consent was obtained. A time out was performed with verification of the patient's name, MRN, site of procedure, and type of procedure to be performed. The patient was positioned in the supine position on the angiographic table. The site was prepped and draped in the usual sterile fashion. Moderate sedation was not required. The physician spent 30 minutes continuous cdjw-uk-xavk time with the patient. A intelligence officer radiograph reveals the old ileal conduit stent in expected position. A nephrostogram was performed through the existing stent which demonstrates left-sided hydronephrosis. The catheter is in the left renal collecting system. A wire was advanced through the existing ileal conduit stent, under fluoroscopy guidance. There was encrustation at the end hole of the pigtail catheter. After multiple wires were tried, a Glidewire eventually passed through one of the catheter side holes into the renal pelvis. The stent was removed over the wire. A new 14 English all purpose catheter was advanced over the wire under fluoroscopy guidance and positioned in the renal pelvis. The wire was removed. Nephrostogram was performed which demonstrates appropriate positioning of the pigtail within the renal collecting system and less hydronephrosis. No hydroureter. A new ostomy bag was attached. The patient tolerated the procedure well and was returned to the PRU in stable condition. EBL:Less than 5 mL Complications:None Conclusion: Successful conduit stent exchange. The patient should return in 2 months for routine exchange. Patient should flush catheter with 10 mL sterile saline every day. MARIO GARCIA MD Jan 15, 2021 13:41
[2021-01-15 14:25] VITALS: BP 158/65
== END ==
LOC: M IRPRO 11:31
PROVIDERS: ATTEND Radiology Diagnostic Radiology
DX: C67.9 Malignant neoplasm of bladder, unspecified (principal); G82.20 Paraplegia, unspecified; M86.60 Other chronic osteomyelitis, unspecified site; L89.314 Pressure ulcer of right buttock, stage 4; Z79.899 Other long term (current) drug therapy
CPT/HCPCS: 50688; 75984; 99152; 99153; C1729; C1769; C1887; Q9967

== ENCOUNTER → 2021-03-17 | Outpatient (CLI) | payer OTHER ==
[~2021-03-17] MED LIST changes: +CEPHALEXIN 250MG CAPSULE PO STA; -CEPHALEXIN 500 MG CAP PO ONE
[2021-03-17 13:15] VITALS: BP 147/82
--- NOTE | 2021-03-17 14:46 | IRPON ---
IR Postoperative Note Date Of Procedure: March 17, 2021 Time Of Procedure: 14:43 IR Postoperative Note IR Conduit Stent Exchange Ileal conduit stent exchange with fluoroscopic guidance Clinical Information:Bladder cancer status post cystectomy. Ileal conduit stenosis. Left nephroureteral stent dependent. Physician: Dr. Garcia. Procedure: The patient was advised of the benefits, risks, and alternatives of the procedure and informed consent was obtained. A time out was performed with verification of the patient's name, MRN, site of procedure, and type of procedure to be performed. The patient was positioned in the supine position on the angiographic table. The site was prepped and draped in the usual sterile fashion. Moderate sedation was not required. The physician spent 30 minutes continuous ppjh-kv-gwzd time with the patient. A steam table attendant radiograph reveals the old ileal conduit stent in expected position. A wire was advanced through the existing ileal conduit stent, under fluoroscopy guidance and the stent was removed over the wire. A new 18 [place] Islander all purpose catheter was advanced over the wire under fluoroscopy guidance and positioned in the renal pelvis. The wire was removed. A nephrostogram was performed which demonstrates appropriate positioning of the catheter within the renal collecting system. A new ostomy bag was attached. The patient tolerated the procedure well and was returned to the PRU in stable condition. EBL:Less than 5 mL Complications:None Conclusion: Successful conduit stent exchange and up size to 18 [place] Islander. The patient should return in 2 months for routine exchange. Patient should flush catheter with 10 mL sterile saline every day. MARIO GARCIA MD March 17, 2021 14:46
== END ==
LOC: M IRPRO 11:40
PROVIDERS: ATTEND Radiology Diagnostic Radiology
DX: C67.9 Malignant neoplasm of bladder, unspecified (principal); N99.524 Stenosis of incontinent stoma of urinary tract
CPT/HCPCS: 50688; C1729; C1769; Q9967

== ENCOUNTER → 2021-05-26 | Outpatient (CLI) | payer OTHER ==
[~2021-05-26] MED LIST changes: -CEPHALEXIN 250MG CAPSULE PO STA; +CEPHALEXIN 500 MG CAP PO ONE; -DOXY100C PO; +DOXY100C3 PO
[2021-05-26 13:33] VITALS: BP 144/80
--- NOTE | 2021-05-27 08:56 | IRPON ---
IR Postoperative Note Date Of Procedure: May 26, 2021 Time Of Procedure: 16:00 IR Postoperative Note IR Conduit Stent Exchange Ileal conduit stent exchange with fluoroscopic guidance Clinical Information:Bladder cancer status post cystectomy. Ileal conduit stenosis. Left nephroureteral stent dependent. Physician: Dr. Garcia. Procedure: The patient was advised of the benefits, risks, and alternatives of the procedure and informed consent was obtained. A time out was performed with verification of the patient's name, MRN, site of procedure, and type of procedure to be performed. The patient was positioned in the supine position on the angiographic table. The site was prepped and draped in the usual sterile fashion. Moderate sedation was not required. The physician spent 30 minutes continuous vjxc-wp-xzkg time with the patient. A detention worker radiograph reveals the old ileal conduit stent in expected position. A wire was advanced through the existing ileal conduit stent, under fluoroscopy guidance and the stent was removed over the wire. A new 18 [place] all purpose catheter was advanced over the wire under fluoroscopy guidance and positioned in the renal pelvis. The wire was removed. A nephrostogram was performed which demonstrates appropriate positioning of the catheter within the renal collecting system. A new ostomy bag was attached. The patient tolerated the procedure well and was returned to the PRU in stable condition. EBL:Less than 5 mL Complications:None Conclusion: Successful conduit stent exchange. The patient should return in 2 to 3 months for routine exchange. Patient should flush catheter with 10 mL sterile saline every day. MARIO GARCIA MD May 27, 2021 08:56
== END ==
LOC: M IRPRO 11:41
PROVIDERS: ATTEND Radiology Diagnostic Radiology
DX: N99.524 Stenosis of incontinent stoma of urinary tract (principal)
CPT/HCPCS: 50688; C1729; C1769; Q9967

== ENCOUNTER → 2021-05-27 | Outpatient (CLI) | payer OTHER ==
[~2021-05-27] MED LIST changes: -CEPHALEXIN 500 MG CAP PO ONE
[2021-05-27 10:35] VITALS: BP 125/69
--- NOTE | 2021-05-27 10:48 | REP ---
INDICATION: F/U STENT. COMPARISON: Fluoroscopic spot views of the abdomen obtained 05/26/2021 at 1:15 p.m. FINDINGS: There is a curvilinear radiodensity seen entering from the right the tip of which is at the level of the inferior endplate of L4. The appearance of this has changed from the spot views where the tip of the tube was seen at the level of the inferior endplate of L2 pointing toward the left and after contrast was administered via tube the left renal pelvis was opacified. IMPRESSION: There is radiographic evidence of a change in the position of the tube previously seen to be within the left renal collecting system. <Electronically signed by Zacarias Collado > 05/27/21 [id number]
--- NOTE | 2021-06-02 10:35 | IRPON ---
IR Postoperative Note Date Of Procedure: May 27, 2021 Time Of Procedure: 16:00 IR Postoperative Note IR ileal conduit stent evaluation. Clinical indication: Patient states her left ileal conduit stent is retracted into the ostomy bag. She is still getting urine back. A KUB image was obtained, which demonstrated retraction of the ileal conduit stent. The stent was manipulated and a repeat KUB was performed, which demonstrates persistent retraction of the ileal conduit stent. The patient was then placed on the fluoroscopy table for manipulation of stent under fluoroscopy. Still image obtained on the fluoroscopy table, demonstrates the stent is now back in its expected position and no longer retracted. No further intervention was indicated today. MARIO CROOK MD Jun 02, 2021 10:35
== END ==
LOC: M RAD 09:53
PROVIDERS: ATTEND Radiology Diagnostic Radiology
DX: Z96.0 Presence of urogenital implants (principal)
CPT/HCPCS: 50688; 74018; C1769; Q9967

== ENCOUNTER → 2021-07-23 | Outpatient (CLI) | payer OTHER ==
[~2021-07-23] MED LIST changes: +CEPHALEXIN 500 MG CAP PO ONE; -LIDOCAINE 1% MDV 20ML VIAL As Ordered ONE
[2021-07-23 13:09] VITALS: BP 154/90
--- NOTE | 2021-07-23 14:09 | IRPON ---
IR Postoperative Note Date Of Procedure: Jul 23, 2021 Time Of Procedure: 14:08 IR Postoperative Note IR Conduit Stent Exchange Ileal conduit stent exchange with fluoroscopic guidance Clinical Information:Bladder cancer status post cystectomy. Ileal conduit stenosis. Left nephroureteral stent dependent. Physician: Dr. Garcai. Procedure: The patient was advised of the benefits, risks, and alternatives of the procedure and informed consent was obtained. A time out was performed with verification of the patient's name, MRN, site of procedure, and type of procedure to be performed. The patient was positioned in the supine position on the angiographic table. The site was prepped and draped in the usual sterile fashion. Moderate sedation was not required. The physician spent 30 minutes continuous nwbw-vp-muxa time with the patient. A supervisor erection shop radiograph reveals the old ileal conduit stent in expected position. A wire was advanced through the existing ileal conduit stent, under fluoroscopy guidance and the stent was removed over the wire. A new 18 Senegalese all purpose catheter was advanced over the wire under fluoroscopy guidance and positioned in the renal pelvis. The wire was removed. A nephrostogram was performed which demonstrates appropriate positioning of the catheter within the renal collecting system. A new ostomy bag was attached. The patient tolerated the procedure well and was returned to the PRU in stable condition. EBL:Less than 5 mL Complications:None Conclusion: Successful conduit stent exchange. The patient should return in 2 to 3 months for routine exchange. Patient should flush catheter with 10 mL sterile saline every day. MARIO GARCIA MD Jul 23, 2021 14:09
== END ==
LOC: M IRPRO 12:01
PROVIDERS: ATTEND Radiology Diagnostic Radiology
DX: C67.9 Malignant neoplasm of bladder, unspecified (principal); N99.524 Stenosis of incontinent stoma of urinary tract
CPT/HCPCS: 50688; 75984; C1729; C1769; Q9967

== ENCOUNTER → 2021-09-18 | Outpatient (CLI) | payer OTHER ==
[2021-09-18 14:00] VITALS: BP 137/72
--- NOTE | 2021-09-18 14:06 | IRPON ---
IR Postoperative Note Date Of Procedure: Sep 18, 2021 Time Of Procedure: 14:05 IR Postoperative Note IR Conduit Stent Exchange Ileal conduit stent exchange with fluoroscopic guidance Clinical Information:Bladder cancer status post cystectomy. Ileal conduit stenosis. Left ureteral stent dependent. Physician: Dr. Garcia. Procedure: The patient was advised of the benefits, risks, and alternatives of the procedure and informed consent was obtained. A time out was performed with verification of the patient's name, MRN, site of procedure, and type of procedure to be performed. The patient was positioned in the supine position on the angiographic table. The site was prepped and draped in the usual sterile fashion. Moderate sedation was not required. The physician spent 30 minutes continuous pond-ds-rtqm time with the patient. A door fitter radiograph reveals the old ileal conduit stent in expected position. A wire was advanced through the existing ileal conduit stent, under fluoroscopy guidance and the stent was removed over the wire. A new 18 [place]bourgish all purpose catheter was advanced over the wire under fluoroscopy guidance and positioned in the renal pelvis. The wire was removed. A nephrostogram was performed which demonstrates appropriate positioning of the catheter within the renal collecting system. A new ostomy bag was attached. The patient tolerated the procedure well and was returned to the PRU in stable condition. EBL:Less than 5 mL Complications:None Conclusion: Successful conduit stent exchange. The patient should return in 2 to 3 months for routine exchange. Patient should flush catheter with 10 mL sterile saline every day. MARIO GARCIA MD Sep 18, 2021 14:06
== END ==
LOC: M IRPRO 12:45
PROVIDERS: ATTEND Radiology Diagnostic Radiology
DX: N13.8 Other obstructive and reflux uropathy (principal); C67.9 Malignant neoplasm of bladder, unspecified
CPT/HCPCS: 50693; 99152; 99153; C1729; C1769; Q9967

== ENCOUNTER → 2021-11-20 | Outpatient (CLI) | payer OTHER ==
[~2021-11-20] MED LIST changes: -CALC1TAB8 PO; +CALC600T67 PO; -LEVO500T3 PO; +LEVO500T4 PO; +TIZA10TA PO; -TIZA4TAB4 PO
[2021-11-20 11:40] VITALS: BP 178/83
== END ==
LOC: M IRPRO 10:36
PROVIDERS: ATTEND Radiology Diagnostic Radiology
DX: C67.9 Malignant neoplasm of bladder, unspecified (principal); Z96.0 Presence of urogenital implants
CPT/HCPCS: 50688; C1729; C1769; Q9967

== ENCOUNTER → 2022-09-17 | Outpatient (CLI) | payer OTHER ==
[~2022-09-17] MED LIST changes: +CEPHALEXIN 500 MG CAP As Ordered ONE; -FLUC200T2 PO; +FLUC200T4 PO; +LEVO1TAB39 PO; -LEVO500T4 PO; +NYST-13 TOP; -NYST10CR TOP
[2022-09-17 14:55] VITALS: BP 163/81
== END ==
LOC: M IRPRO 13:39
PROVIDERS: ATTEND Radiology Diagnostic Radiology
DX: T83.85XA Stenosis due to genitourinary prosthetic devices, implants and grafts, initial encounter (principal); X58.XXXA Exposure to other specified factors, initial encounter
CPT/HCPCS: 50688; C1729; C1769

== ENCOUNTER → 2022-12-17 | Outpatient (CLI) | payer OTHER ==
[~2022-12-17] MED LIST changes: +DIPH-435 PO; -DIPH25CA32 PO; +ISOVUE-300 61% 100ML VIAL As Ordered ONE; -ISOVUE-300 61% 50ML VIAL As Ordered ONE
[2022-12-17 13:20] VITALS: BP 161/94
== END ==
LOC: M IRPRO 12:07
PROVIDERS: ATTEND Radiology Diagnostic Radiology
DX: Z46.6 Encounter for fitting and adjustment of urinary device (principal); C67.9 Malignant neoplasm of bladder, unspecified
CPT/HCPCS: 50688; C1729; C1769

== ENCOUNTER → 2023-02-05 | Outpatient (CLI) | payer OTHER ==
[~2023-02-05] MED LIST changes: -CEPHALEXIN 500 MG CAP As Ordered ONE; -CEPHALEXIN 500 MG CAP PO ONE; -ISOVUE-300 61% 100ML VIAL As Ordered ONE; +LIDOCAINE 1% MDV 20ML VIAL As Ordered ONE; +cefTRIAXone SOD 2 GM in D5W MINI-BAG PLUS 50 ML IV ONE
[2023-02-05 13:35] VITALS: BP 163/72
== END ==
LOC: M IRPRO 13:07
PROVIDERS: ATTEND Nurse Practitioner Family
DX: M86.5 Other chronic hematogenous osteomyelitis (principal)
CPT/HCPCS: 36561; 76937; C1751; J0696

== ENCOUNTER → 2023-02-24 | Outpatient (CLI) | payer OTHER ==
[~2023-02-24] MED LIST changes: +CEPHALEXIN 500 MG CAP As Ordered ONE; +ISOVUE-300 61% 100ML VIAL As Ordered ONE; -cefTRIAXone SOD 2 GM in D5W MINI-BAG PLUS 50 ML IV ONE
[2023-02-24] MEDS: CEPHALEXIN 500 MG CAP PO ONE (11:55)
[2023-02-24 13:16] VITALS: BP 145/65
== END ==
LOC: M IRPRO 11:20
PROVIDERS: ATTEND Radiology Diagnostic Radiology
DX: C67.9 Malignant neoplasm of bladder, unspecified (principal)

== ENCOUNTER → 2023-02-24 | Outpatient (CLI) | payer OTHER ==
[~2023-02-24] MED LIST changes: -CEPHALEXIN 500 MG CAP As Ordered ONE; -ISOVUE-300 61% 100ML VIAL As Ordered ONE; -LIDOCAINE 1% MDV 20ML VIAL As Ordered ONE
[2023-02-24 12:58] LABS: HEMATOCRIT 31.3 % (36.0-47.0); HEMOGLOBIN 9.2 g/dl (12.0-15.5); MEAN CORPUSCULAR HEMOGLOBIN 23.8 pg (27.0-33.0); MEAN CORPUSCULAR HGB CONC 29.4 g/dl (32.0-36.5); MEAN CORPUSCULAR VOLUME 81.1 fl (80.0-96.0); PLATELET COUNT, AUTOMATED 329 10^3/uL (150-450); RED BLOOD COUNT 3.86 10^6/uL (4.00-5.40); WHITE BLOOD COUNT 7.8 10^3/uL (4.0-10.0)
[2023-02-24 13:24] LABS: ALBUMIN 2.8 G/DL (3.2-5.2); ALKALINE PHOSPHATASE 105 U/L (46-116); ALT/SGPT 10 U/L (7.0-40); AST/SGOT 18 U/L (<34); BILIRUBIN,TOTAL 0.3 MG/DL (0.3-1.2); BLOOD UREA NITROGEN 18 MG/DL (9-23); CALCIUM LEVEL 9.6 MG/DL (8.3-10.6); CARBON DIOXIDE LEVEL 26 MMOL/L (20-31); CHLORIDE LEVEL 109 MMOL/L (98-107); CREATININE FOR GFR 0.55 MG/DL (0.55-1.30); GLOMERULAR FILTRATION RATE > 60.0 (>45); GLUCOSE, FASTING 82 MG/DL (74-106); POTASSIUM SERUM 3.9 MMOL/L (3.5-5.1); SODIUM LEVEL 139 MMOL/L (136-145); TOTAL PROTEIN 6.3 G/DL (5.7-8.2)
== END ==
LOC: M LAB 12:12
PROVIDERS: ATTEND Nurse Practitioner Family
DX: C67.9 Malignant neoplasm of bladder, unspecified (principal)

== ENCOUNTER → 2023-03-09 | Outpatient (REF) | payer OTHER | LOC: M SMT 17:54 | PROVIDERS: ATTEND Urology | DX: C67.9 Malignant neoplasm of bladder, unspecified (principal) ==

== ENCOUNTER → 2023-04-29 | Outpatient (CLI) | payer OTHER ==
[~2023-04-29] VITALS: Ht 172.7 cm; Wt 62.9 kg
[~2023-04-29] MED LIST changes: +CEPHALEXIN 500 MG CAP As Ordered ONE; +CEPHALEXIN 500 MG CAP PO ONE; +ISOVUE-300 61% 100ML VIAL As Ordered ONE; +LIDOCAINE 1% MDV 20ML VIAL As Ordered ONE
[2023-04-29 12:16] VITALS: TEMP 97.5
[2023-04-29 13:00] VITALS: BP 121/89; O2SAT 99
== END ==
LOC: M IRPRO 11:44
PROVIDERS: ATTEND Radiology Diagnostic Radiology
DX: Z46.6 Encounter for fitting and adjustment of urinary device (principal); C67.9 Malignant neoplasm of bladder, unspecified; N99.524 Stenosis of incontinent stoma of urinary tract
CPT/HCPCS: 50688; C1729; C1769; Q9967

== ENCOUNTER → 2023-08-25 | Outpatient (CLI) | payer OTHER ==
[~2023-08-25] VITALS: Ht 172.7 cm; Wt 61.3 kg
[~2023-08-25] MED LIST changes: +MECL-209 PO; -MECL1TAB31 PO; -OXYB5TAB10 PO; +OXYB5TAB11 PO
[2023-08-25 11:13] VITALS: TEMP 99.6
[2023-08-25 13:00] VITALS: BP 161/94; O2SAT 98
== END ==
LOC: M IRPRO 11:06
PROVIDERS: ATTEND Urology
DX: N13.5 Crossing vessel and stricture of ureter without hydronephrosis (principal)
CPT/HCPCS: 50688; C1729; C1887; Q9967

== ENCOUNTER → 2023-12-13 | Outpatient (CLI) | payer OTHER ==
[2023-12-13 12:29] VITALS: TEMP 97.9
[2023-12-13 14:10] VITALS: BP 122/57; O2SAT 100
== END ==
LOC: M IRPRO 12:21
PROVIDERS: ATTEND Urology
DX: N13.5 Crossing vessel and stricture of ureter without hydronephrosis (principal)
CPT/HCPCS: 50387; 75984; C1729; C1769; Q9967

== ENCOUNTER → 2024-03-09 | Outpatient (CLI) | payer OTHER ==
[~2024-03-09] VITALS: Ht 172.7 cm; Wt 62.5 kg
[~2024-03-09] MED LIST changes: -CEPHALEXIN 500 MG CAP PO ONE; -LIDOCAINE 1% MDV 20ML VIAL As Ordered ONE; -OXYB5TAB11 PO; +OXYB5TAB14 PO
[2024-03-09 13:45] VITALS: TEMP 98.6
[2024-03-09] MEDS: CEPHALEXIN 500 MG CAP PO ONE (14:05)
[2024-03-09 15:06] VITALS: BP 137/64; O2SAT 99
== END ==
LOC: M IRPRO 13:27
PROVIDERS: ATTEND Urology
DX: N13.2 Hydronephrosis with renal and ureteral calculous obstruction (principal)
CPT/HCPCS: 50435; 75984; C1729; Q9967

== ENCOUNTER → 2024-06-13 | Outpatient (CLI) | payer OTHER ==
[~2024-06-13] MED LIST changes: +CEPHALEXIN 500 MG CAP PO ONE; +METH85CR6 TOP; -MUSCCRE9 TOP; +NS 1,000 ML IV SCH
[2024-06-13 13:00] VITALS: TEMP 97.4
[2024-06-13 14:20] VITALS: BP 129/68; O2SAT 100
== END ==
LOC: M IRPRO 12:20
PROVIDERS: ATTEND Urology
DX: N13.1 Hydronephrosis with ureteral stricture, not elsewhere classified (principal)
CPT/HCPCS: 50435; 74018; C1729; C1769; Q9967

== ENCOUNTER → 2024-09-25 | Outpatient (CLI) | payer OTHER ==
[~2024-09-25] VITALS: Ht 172.7 cm; Wt 63.0 kg
[~2024-09-25] MED LIST changes: -CEPHALEXIN 500 MG CAP PO ONE; +CIPROFLOXACIN 400 MG in IV 1 EA IV ONE; +FLUC-1 PO; -FLUC200T4 PO; -VITA500C19 PO; +VITA500C22 PO
[2024-09-25 14:00] VITALS: TEMP 98.1
[2024-09-25] MEDS: CEPHALEXIN 500 MG CAP PO ONE (16:20)
[2024-09-25 17:37] VITALS: BP 110/55; O2SAT 97
== END ==
LOC: EEVIPCON 13:26 → M IRPRO 13:26
PROVIDERS: ATTEND Urology
DX: N13.5 Crossing vessel and stricture of ureter without hydronephrosis (principal)
CPT/HCPCS: 50387; 81001; 87088; 87186; C1729; Q9967

== ENCOUNTER → 2024-12-15 | Outpatient (CLI) | payer OTHER ==
[~2024-12-15] MED LIST changes: -CEPHALEXIN 500 MG CAP As Ordered ONE; -CIPROFLOXACIN 400 MG in IV 1 EA IV ONE; +MIDAZOLAM INJ 2MG/2ML VIAL IV PRN; +NALOXONE INJ 0.4MG/1ML VIAL IV PRN; +NS (Normal Saline) 0.9% 1,000 ML IV SCH; -NS 1,000 ML IV SCH; +fentaNYL 100 MCG/2 ML INJECTION IV PRN
[2024-12-15 12:45] VITALS: TEMP 97.9
[2024-12-15] MEDS: BACTRIM 160MG/800MG DS TAB PO ONE (13:14)
[2024-12-15 13:55] VITALS: BP 131/63; O2SAT 98
== END ==
LOC: M IRPRO 12:37
PROVIDERS: ATTEND Radiology Diagnostic Radiology
DX: N13.9 Obstructive and reflux uropathy, unspecified (principal)
CPT/HCPCS: 50435; C1729; Q9967

== ENCOUNTER → 2025-02-09 | Outpatient (CLI) | payer OTHER ==
[~2025-02-09] MED LIST changes: -ISOVUE-300 61% 100ML VIAL As Ordered ONE; +LIDOCAINE 1% MDV 20ML VIAL SC ONE; -MIDAZOLAM INJ 2MG/2ML VIAL IV PRN; -NALOXONE INJ 0.4MG/1ML VIAL IV PRN; -NS (Normal Saline) 0.9% 1,000 ML IV SCH; -fentaNYL 100 MCG/2 ML INJECTION IV PRN
[2025-02-09 13:25] VITALS: TEMP 96.8
[2025-02-09] MEDS: CEPHALEXIN 500 MG CAP PO ONE (14:09)
[2025-02-09] MEDS: ISOVUE-300 61% 100ML VIAL IV ONE (14:55)
[2025-02-09 15:04] VITALS: BP 152/80; O2SAT 100
== END ==
LOC: M IRPRO 13:11
PROVIDERS: ATTEND Radiology Diagnostic Radiology
DX: N13.9 Obstructive and reflux uropathy, unspecified (principal)
CPT/HCPCS: 50435; C1729; Q9967

== ENCOUNTER → 2025-06-11 | Outpatient (CLI) | payer OTHER ==
[~2025-06-11] MED LIST changes: -CLOT10TR PO; +CLOT10TR11 PO; -LIDOCAINE 1% MDV 20ML VIAL SC ONE; +LIDOCAINE 2% JELLY 6 ML SYRINGE TOP ONE; +NS (Normal Saline) 0.9% 1,000 ML IV SCH; -NYST-13 TOP; +NYST0.1C TOP; +SODIUM CHLORIDE 0.9% 1000 ML XX SCH; +ceFAZolin SODIUM 2 GM in DEXTROSE 5% (D5W) ADV/MINI-BAG 50 ML IV ONE
[2025-06-11 12:45] VITALS: TEMP 98
[2025-06-11] MEDS: CEPHALEXIN 500 MG CAP PO ONE (13:23)
[2025-06-11] MEDS: ISOVUE-300 61% 100 ML VIAL IV SCH (13:56)
[2025-06-11 14:05] VITALS: BP 143/73; O2SAT 100
== END ==
LOC: M IRPRO 12:32
PROVIDERS: ATTEND Radiology Diagnostic Radiology
DX: N13.9 Obstructive and reflux uropathy, unspecified (principal)
CPT/HCPCS: 50387; C1729; Q9967

== ENCOUNTER → 2025-08-06 | Outpatient (CLI) | payer OTHER ==
[~2025-08-06] VITALS: Ht 172.7 cm; Wt 66.3 kg
[~2025-08-06] MED LIST changes: +CELE1CAP4 PO; +HYDR12.510 PO; -LIDOCAINE 2% JELLY 6 ML SYRINGE TOP ONE; -NS (Normal Saline) 0.9% 1,000 ML IV SCH; -ceFAZolin SODIUM 2 GM in DEXTROSE 5% (D5W) ADV/MINI-BAG 50 ML IV ONE
[2025-08-06 13:00] VITALS: TEMP 98
[2025-08-06] MEDS: LIDOCAINE 1% MDV 20 ML VIAL SC SCH (13:05)
[2025-08-06] MEDS: CEPHALEXIN 500 MG CAP PO ONE (14:42)
[2025-08-06] MEDS: ISOVUE-300 61% 100 ML VIAL IV SCH (15:24)
[2025-08-06 15:51] VITALS: BP 130/69; O2SAT 97
== END ==
LOC: M IRPRO 12:36
PROVIDERS: ATTEND Radiology Diagnostic Radiology
DX: N13.9 Obstructive and reflux uropathy, unspecified (principal)
CPT/HCPCS: 50387; C1729; Q9967

== ENCOUNTER → 2025-10-04 | Outpatient (CLI) | payer OTHER ==
[~2025-10-04] MED LIST changes: +ISOVUE-300 61% 100 ML VIAL IV SCH; +LIDOCAINE 1% MDV 20 ML VIAL SC SCH; +MIDAZOLAM INJ 2 MG/2 ML VIAL IV PRN; +NS (Normal Saline) 0.9% 1,000 ML IV SCH; -SODIUM CHLORIDE 0.9% 1000 ML XX SCH
[2025-10-04] MEDS: CEPHALEXIN 500 MG CAP PO ONE (13:19)
[2025-10-04 13:20] VITALS: TEMP 98.6
[2025-10-04 14:10] VITALS: BP 118/59; O2SAT 99
== END ==
LOC: M IRPRO 12:57
PROVIDERS: ATTEND Radiology Diagnostic Radiology
DX: N13.9 Obstructive and reflux uropathy, unspecified (principal)
CPT/HCPCS: 50387; C1729